=== PATIENT | female | born 1965 ===

== ENCOUNTER 2017-01-02 04:08 | Inpatient (IN) ==
--- NOTE | 2017-01-02 05:09 | Emergency Department Note ---
Arrival - Arrival Chief Complaint: Nausea/Vomiting/Diarrhea Stated Complaint: N/V ED Nursing Triage Note: Pt arrives via ems from [facility] for further eval of elevated ammonia and abnormal ct results. Pt was seen initially for nausea and vomiting and found to have abnormal results. PT at time of triage is noted to be jaundice. No complaints at this time. Denies any nausea. Mode of Arrival: Stretcher Time Seen by Provider: 01/02/17 04:44 - History of Present Illness HPI Narrative: This is a 51-year-old female of descent who presents from [facility] where she presented for generalized body aches and headache and was found to have a lipase of 134, amylase of 572, an INR of 1.4, total bilirubin of 24 who has a history of, asthma, pneumonia, cholecystectomy, type 2 diabetes and bipolar disorder. A CT scan of the abdomen and pelvis with intravenous contrast showed multiple tiny hypodensities throughout the liver which was thought to be either metastatic disease or fungal infection. The patient was transferred to [facility] for admission Date of Last Menstrual Period: pm Allergies/Adverse Reactions: Allergies Allergy/AdvReac Type Severity Reaction Status Date / Time No Known Allergies Allergy Verified 03/23/16 16:42 Home Medications: Home Medications Medication Instructions Recorded Confirmed Type No Known Home Medications [No 01/02/17 01/02/17 History Known Home Medications] Review of System - Review of System Constitutional: Absent: fever, night sweats Eyes: Absent: redness, vision change Head/Ears/Nose/Throat: Absent: epistaxis, nasal drainage Respiratory: Absent: respiratory distress, wheezing Cardiovascular: Absent: dyspnea on exertion, orthopnea Gastrointestinal: Absent: vomiting, diarrhea Genitourinary female: Absent: dysuria, urgency Musculoskeletal: Absent: arthralgia, joint swelling Skin: Absent: change in color, change in hair/nails Neurological: Absent: numbness, paresthesias Psychiatric: Absent: anxiety, depression Endocrine: Absent: heat intolerance, polydipsia, polyuria Hematological/Lymphatic: Absent: easy bruising, lymphadenopathy Allergic/Immunologic: Absent: urticaria Medical,Surgical,& Family Hx - Medical History Cardio: History of: Hypertension No history of: Cardiovascular Problems Psychological: History of: Bipolar Disorder, Psychiatric/Substance Abuse Tx HEENT: History of: Eye Problem Endocrine: History of: Diabetes Mellitus (IDDM) Respiratory: History of: Asthma, Bronchitis, Pneumonia Musculoskeletal: No history of: Amputation Hematology: History of: Anemia - Surgical History Cardiac Surgeries: Patient Denies: Cardiac Catheterization Thoracic Surgeries: Patient denies;: Organ Transplant Neurologic Surgeries: Patient denies: Neurologic Surgery HEENT Surgeries: Patient denies: Eye Surgery, Thyroid Surgery Abdominal Surgeries: Surgical HX of: Cholecystectomy, Colonoscopy Patient denies: Abdominal Surgery, Hernia Repair Reproductive Surgeries: Patient denies;: Genitourinary Surgery, Gynecologic Surgery - Family History Family History: Reports;: Family Diabetes, Family Hypertension, Family Psychiatric Problems - Social History Smoking Status: Current some day smoker Frequency of Alcohol Use: Frequently Type of Drug Use: None Exam Vital Signs: Vital Signs Temperature 99.4 F 01/02/17 04:08 Pulse Rate 76 01/02/17 04:08 Respiratory Rate 19 01/02/17 04:08 Blood Pressure 119/58 01/02/17 04:08 O2 Sat by Pulse Oximetry 97 01/02/17 04:08 - Head Head exam: Present: atraumatic, normocephalic - Eye Eye exam: Present: PERRL, EOMI, other (Sclera are icteric) - ENT ENT exam: Present: normal exam - Neck Neck exam: Present: normal inspection - Chest Chest inspection: Present: normal inspection - Respiratory Respiratory exam: Present: normal lung sounds bilaterally - Cardiovascular Cardiovascular exam: Present: regular rate - Abdominal Exam Abdominal exam: Present: soft, normal bowel sounds - Extremities Exam Extremities exam: Present: normal inspection, full ROM - Back Exam Back exam: Present: normal inspection, full ROM - Neurological Exam Neurological exam: Present: alert, oriented X3, CN II-XII intact - Psychiatric Psychiatric exam: Present: normal affect - Skin Skin exam: Present: other (Jaundiced)
[2017-01-02] MEDS ORDERED: ONDANSETRON 4 MG/2 ML VIAL IV PRN (05:37)
--- NOTE | 2017-01-02 05:50 | Hospitalist History & Physical ---
Assessment and Plan (1) Increase in transaminases Status: Acute Current Visit: Yes (2) Multiple hypodensities in liver Status: Acute Current Visit: Yes (3) Serum total bilirubin elevated Status: Acute Current Visit: Yes (4) Nausea Status: Acute Current Visit: Yes (5) History of alcoholism Status: Acute Assessment and plan: Our plan for this patient will be admission to our service. I want to repeat all labs drawn at [facility]. In addition I am going to have a direct bilirubin drawn. Will check tumor markers for the liver. Will consult GI for their evaluation. Going get a liver ultrasound. Patient may need a biopsy of 1 of these liver lesions. We need to obtain the final report for the CT scan. I currently only have a V rad report. Check hepatitis panel serologies. Going to give her some lactulose for increased ammonia. She does seem a little bit altered but not significantly. Current Visit: Yes History of Present Illness Chief complaint: Liver abnormalities History of present illness: Ms. Jhaveri is a 51 year old female with past medical history significant for alcoholism and anemia who was in her normal state of health until the past 3 days. Patient reports that she has had nausea during this time. She is on thrown up once. She she has not noticed any changes in her skin color. She denies any abdominal pain. She just says overall she is is not been feeling right. Patient reports that she has been feeling so poorly that she quit drinking about 1 week ago. She reports no symptoms of DTs. Based on her lab findings and CT scan I was consulted to admit her. Home Medications Medication Instructions Recorded Confirmed Type No Known Home Medications [No 01/02/17 01/02/17 History Known Home Medications] Allergies Allergy/AdvReac Type Severity Reaction Status Date / Time No Known Allergies Allergy Verified 03/23/16 16:42 Medical,Surgical,& Family Hx - Medical History Cardio: History of: Hypertension No history of: Cardiovascular Problems Psychological: History of: Bipolar Disorder, Psychiatric/Substance Abuse Tx HEENT: History of: Eye Problem Endocrine: History of: Diabetes Mellitus (IDDM) Respiratory: History of: Asthma, Bronchitis, Pneumonia Musculoskeletal: No history of: Amputation Hematology: History of: Anemia - Surgical History Cardiac Surgeries: Patient Denies: Cardiac Catheterization Thoracic Surgeries: Patient denies;: Organ Transplant Neurologic Surgeries: Patient denies: Neurologic Surgery HEENT Surgeries: Patient denies: Eye Surgery, Thyroid Surgery Abdominal Surgeries: Surgical HX of: Cholecystectomy, Colonoscopy Patient denies: Abdominal Surgery, Hernia Repair Reproductive Surgeries: Patient denies;: Genitourinary Surgery, Gynecologic Surgery - Family History Family History: Reports;: Family Diabetes, Family Hypertension, Family Psychiatric Problems - Social History Smoking Status: Current some day smoker Frequency of Alcohol Use: Frequently Type of Drug Use: None 12 point system: reviewed and no additional remarkable complaints except as stated Exam - Constitutional Vitals: Period Temp Pulse Resp BP Sys/Grajeda Pulse Ox Last 24 Hr 99.4 F-99.4 F 76-76 18-19 119-119/58-58 97 General appearance: over weight - Head Head exam: Present: normal inspection - Eye Eye exam: Present: EOMI, scleral icterus Pupils: Present: JORDAN - ENT ENT exam: Present: normal exam - Neck Neck exam: Present: normal inspection - Respiratory Respiratory exam: Present: clear to auscultation bilaterally - Cardiovascular Cardiovascular exam: Present: regular rate and rhythm - GI/Abdominal GI/Abdominal exam: Present: normal bowel sounds - Back Exam Back exam: Present: normal inspection - Neurological Exam Neurological exam: Present: alert - Psychiatric Psychiatric exam: Present: flat affect - Skin Skin exam: Present: other (Jaundice) Results - Labs Labs: Her labs from [facility] WBC 3.9 hemoglobin 11.4 hematocrit 34.2 platelets 109 BUN 13 sodium 139 potassium 3.1 bicarb 27 total protein 7.0 albumin 1.7 total bili 24.10 alk phos 193 SGOT 140 SGPT 51 glucose 111 calcium 8.0 chloride 105 creatinine 0.8 ammonia 54 INR 1.4 magnesium 2.[address] scan at [facility] that showed multiple tiny hypodensities throughout the liver this may represent metastatic disease or fungal infection clinical correlation is advised
[2017-01-02] MEDS ORDERED: LORazepam 2 MG/1 ML VIAL IV PRN (06:24)
[2017-01-02] MEDS: LACTULOSE 20 GM/30 ML UDCUP PO SCH ×4 (06:37→23:02)
[2017-01-02 07:27] LABS: Basophils % 0.7 % (0.0-0.8); Eosinophils # 0.1 10*3/uL (0.0-0.87); Eosinophils % 1.6 % (0.00-10.9); Hematocrit 31.7 VOL% (35.7-47.0); Hemoglobin 11.5 GM/DL (12.0-16.0); Immature Granulocytes % 0.7 %; Immature Granulocytes Absolute 0.03 #; Lymphocytes # 0.9 10*3/uL (1.4-4.0); Lymphocytes % 20.9 % (21.3-54.2); Mean Corpuscular HGB Conc 36.3 GM/DL (32-36); Mean Corpuscular Hemoglobin 37 PG (27-34); Mean Corpuscular Volume 101.3 FL (87-102); Mean Platelet Volume 9.9 FL (9.6-12.0); Monocytes # 0.8 10*3/uL (0.11-0.8); Monocytes % 17.6 % (1.7-12.7); Neutrophils # 2.6 10*3/uL (1.4-7.4); Neutrophils % 58.5 % (38.7-73.9); Platelet Count 96 T/CUMM (130-400); Red Blood Count 3.13 MC/CUMM (3.8-5.5); Red Cell Distribution Width 22.5 % (9.3-17.3); White Blood Count 4.5 T/CUMM (4-12)
[2017-01-02 07:41] LABS: INR 1.5; PT Patient Result 16.7 SECS
[2017-01-02 07:50] LABS: Band Neutrophils 2 % (0-10); Eosinophils 2 % (0-10); Giant Platelets Few; Hypochromasia 1+; Lymphocytes 14 % (20-55); Platelet Estimate Decreased; Segmented Neutrophils 65 % (50-85); Target Cells Few; Total Cells Counted 100
[2017-01-02 08:03] LABS: Albumin 1.6 G/DL (3.4-5.0); Calcium 7.9 MG/DL (8.5-10.1); Osmolality,Calculated 274.5 MOS/KG (273-304); Total Protein 6.3 G/DL (6.4-8.3)
[2017-01-02 08:10] LABS: Bilirubin,Total 21.6 MG/DL (0.2-1.0)
[2017-01-02 08:51] LABS: AFP Tumor 4.9 NG/ML (0-8)
[2017-01-02 08:55] LABS: Carcinoembryonic Antigen 2.2 NG/ML (0.0-5.0); Hepatitis A Ab IgM Quant 0.13 Index; Hepatitis A Ab IgM Result Negative (Negative); Hepatitis B Core IgM Quant < 0.05 Index; Hepatitis B Core IgM Result Negative (Negative); Hepatitis B Surface Ag Quant 0.44 Index; Hepatitis B Surface Ag Result Negative (Negative); Hepatitis C Virus Ab Quant 0.71 Index; Hepatitis C Virus Ab Result Negative (Negative)
[2017-01-02] MEDS: FOLIC ACID 1 MG TABLET PO SCH (09:11)
[2017-01-02] MEDS: PANTOPRAZOLE 40 MG TABLET PO SCH (09:11)
[2017-01-02] MEDS: MULTIVITAMIN (CENTRUM) TABLET PO SCH (09:11)
[2017-01-02] MEDS: THIAMINE 100 MG TABLET PO SCH (09:11)
--- NOTE | 2017-01-02 15:45 | Hospitalist Progress Note ---
Hospitalist: Subjective Interval history: Patient states that her n/v has resolved. She was given lactulose and she states that she had some diarrhea. Her abdominal pain has resolved as well. She admits to drinking beers up to 18 a day. She states that for two weeks, she drank almost 24 cans of beer a day for 2 weeks. Her last beer was 1.5 weeks ago. She states that she has never had any withdrawals from ETOH cessation. She states that she wants to eat. Exam - Constitutional Vitals: Period Temp Pulse Resp BP Sys/Grajeda Pulse Ox Last 24 Hr 98 F-99.4 F 69-94 16-19 110-126/54-62 90-97 General appearance: no acute distress, over weight - Head Head exam: Present: normal inspection - Eye Eye exam: Present: EOMI, scleral icterus Pupils: Present: OJRDAN - Respiratory Respiratory exam: Present: clear to auscultation bilaterally. Absent: rales, rhonchi, wheezes - Cardiovascular Cardiovascular exam: Present: regular rate and rhythm. Absent: diastolic murmur , systolic murmur - GI/Abdominal GI/Abdominal exam: Present: normal bowel sounds, soft. Absent: distended, tenderness - Extremities Exam Extremities exam: Absent: edema (no asterixis) - Neurological Exam Neurological exam: Present: alert, oriented X3 - Psychiatric Psychiatric exam: Present: normal affect, normal mood - Skin Skin exam: Present: other (jaundiced) Results - Labs CBC & BMP: 01/02/17 07:05 01/02/17 07:05 - Impressions 1. Obstructive Jaundice 2. Liver masses, on outside CT; RUQUS pending 3. Elevated direct and total bilirubin 4. Obstructive LFT pattern 5. h/o ETOH use 6. hyperammonemia, mental status seems to be normal; she received lactulose today 7. thrombocytopenia, likely 2nd to ETOHic liver disease 8. hypoK: likely 2nd to n/v; replete and monitor Plan: continue current therapy; await recommendations from GI; will need biopsy of liver mass by IR; f/u LFTs; replete K; obtain mg level; start clears; continue thiamine/folate; monitor and treat for ETOH withdrawals; on PPI; DVT prophalaxis with SCDs.
[2017-01-02] MEDS ORDERED: POTASSIUM CHLORIDE 20 MEQ TABLET PO ONE (15:52)
[2017-01-02 16:44] LABS: Albumin 1.4 G/DL (3.4-5.0); Calcium 7.6 MG/DL (8.5-10.1); Osmolality,Calculated 276.4 MOS/KG (273-304)
[2017-01-02 16:46] LABS: Bilirubin,Total 20.1 MG/DL (0.2-1.0)
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
[2017-01-02 16:48] LABS: % Iron Saturation 92.3 % (18-50)
[2017-01-02 17:57] LABS: Cancer Antigen 19-9 6.1 U/ML (0-37)
[2017-01-02] MEDS: PHYTONADIONE 5 MG TABLET PO SCH (18:46)
[2017-01-02] MEDS: RIFAXIMIN 550 MG TABLET PO SCH (20:50)
[2017-01-02] MEDS: hydrOXYzine HCL 25 MG TABLET PO PRN (20:50)
[2017-01-03] MEDS: LACTULOSE 20 GM/30 ML UDCUP PO SCH ×3 (05:05→17:16)
[2017-01-03 06:33] LABS: Basophils % 0.9 % (0.0-0.8); Eosinophils # 0.1 10*3/uL (0.0-0.87); Eosinophils % 1.6 % (0.00-10.9); Immature Granulocytes % 0.7 %; Immature Granulocytes Absolute 0.03 #; Lymphocytes % 21.9 % (21.3-54.2); Mean Corpuscular HGB Conc 35.5 GM/DL (32-36); Mean Corpuscular Hemoglobin 36 PG (27-34); Mean Corpuscular Volume 102.6 FL (87-102); Mean Platelet Volume 10.5 FL (9.6-12.0); Monocytes # 0.8 10*3/uL (0.11-0.8); Monocytes % 17.8 % (1.7-12.7); Neutrophils # 2.5 10*3/uL (1.4-7.4); Neutrophils % 57.1 % (38.7-73.9); Platelet Count 104 T/CUMM (130-400); Red Blood Count 3.02 MC/CUMM (3.8-5.5); Red Cell Distribution Width 22.5 % (9.3-17.3); White Blood Count 4.4 T/CUMM (4-12)
[2017-01-03 06:44] LABS: INR 1.4; PT Patient Result 15.1 SECS
[2017-01-03 07:00] LABS: Band Neutrophils 1 % (0-10); Eosinophils 2 % (0-10); Lymphocytes 13 % (20-55); Segmented Neutrophils 70 % (50-85); Total Cells Counted 100
[2017-01-03 07:01] LABS: Giant Platelets Few; Hypochromasia 1+; Platelet Estimate Decreased
[2017-01-03 07:02] LABS: Magnesium 2.4 MG/DL (1.8-2.4)
[2017-01-03] MEDS ORDERED: SODIUM CHLORIDE 0.9% 250 ML IV PRN (08:24)
[2017-01-03] MEDS: FOLIC ACID 1 MG TABLET PO SCH (08:29)
[2017-01-03] MEDS: PANTOPRAZOLE 40 MG TABLET PO SCH (08:29)
[2017-01-03] MEDS: MULTIVITAMIN (CENTRUM) TABLET PO SCH (08:29)
[2017-01-03] MEDS: PHYTONADIONE 5 MG TABLET PO SCH (08:29)
[2017-01-03] MEDS: RIFAXIMIN 550 MG TABLET PO SCH ×2 (08:29→20:45)
[2017-01-03] MEDS: THIAMINE 100 MG TABLET PO SCH (08:29)
--- NOTE | 2017-01-03 08:34 | Gastrointestinal Progress Note ---
Assessment and Plan (1) Jaundice, hepatocellular Status: Acute Assessment and plan: The patient has a bilirubin of 20-21 at this time with no gross evidence of ductal dilatation on CT scan done at the [facility]. Multiple hypodensities are seen within the liver which may represent regenerative nodules versus metastatic disease from a cancer. CA 19-9 is been ordered by myself but the other CEA level and AFP are negative looking for colon cancer and hepatocellular carcinoma respectively. She is not really having fevers or chills and does not have an elevated white blood cell count and I am not overly concerned about fungal infections or disseminated systemic illness. Again I suspect that this patient likely has acute alcoholic hepatitis superimposed on alcoholic cirrhosis as the cause for this underlying jaundice. I have ordered additional tests looking for autoimmune hepatitis, alpha-1 antitrypsin deficiency, and hemochromatosis since the viral hepatitis panel is negative. I think a liver biopsy would be helpful to rule out the metastatic disease. Right now her INR is 1.5 and we may be able to get this down with vitamin K but I suspect she may end up needing a couple of units of fresh frozen plasma prior to the transthoracic biopsy. I will be following the INR to see if this comes down significantly with supplementation. Currently the patient's Maddrey's discriminant function score = 43, with any value greater than 32 indicating that the patient might improve from their alcoholic hepatitis with use of steroids typically prednisolone 40 mg per day for a period of 28 days. On the off chance that this is an infectious process I am not starting this yet. Calculating the patient's MELD score this equals 23 which is referable to a transplant center. She certainly would not be a candidate for transplant until she had been alcohol free for 6 months. 01/03/17--the patient's INR came down to 1.4 today. I suspect interventional radiology would likely do the liver biopsy at this level however, I personally would like to give her 2 units of fresh frozen plasma prior to getting the liver biopsy. As it turns out she needs to be n.p.o. and was eating her sausage and eggs this morning and so have made her n.p.o. prior to getting this procedure after getting the 2 units of fresh frozen plasma today--> interventional radiology can do her procedure likely towards the end of the day- -this will actually give her an opportunity to get her fresh frozen plasma as well. I have removed the patient's tray from her room, she was about half finished. Liver function tests are not back yet from today but the ammonia levels improved down to 51. I would certainly like to know whether this patient has metastatic or infectious process prior to putting them on prednisolone for presumed alcoholic cirrhosis. Current Visit: Yes (2) Acute hepatic encephalopathy Status: Acute Assessment and plan: Patient's ammonia level was elevated to 67 and she gives a history of being confused lately, she is certainly mildly confused in my discussions with her about her history vacillating in alcohol intake amounts between 6 beers a day and 3 cases of beer per day. I suspect the truth is somewhere in the middle. I am going to add some Xifaxan just because I believe that is going to dislike the lactulose intensely and she is already baulking at the flavor. We will watch and see how well ammonia levels improve over the next several days. She is also asking if she will be able to leave the hospital soon. 01/03/17--no gross evidence of hepatic encephalopathy in talking with this patient, she is a perfect historian is completely oriented with her ammonia level 51. Cephalexin continues as does lactulose. Current Visit: Yes (3) History of alcoholism Status: Acute Assessment and plan: I have emphasized that the patient that she likely has cirrhosis and hopefully we can bring her back from this episode. She absolutely needs to discontinue drinking entirely at this point needs to limit the amount of Tylenol that she takes in from here on. I suspect she has underlying cirrhosis we should be able to confirm this with a liver biopsy after we order this perhaps in the next 2 days. She would benefit from better insight as to her underlying problem /addiction. I am not sure what resources the patient can tap into over [facility] but I suspect they have an addictions/alcohol hearing specialist. 01/03/17--Watch for onset of delirium tremens likely tomorrow or the next day, await liver biopsy today. Current Visit: Yes (4) Multiple hypodensities in liver Status: Acute Assessment and plan: Again, I suspect this may be regenerative nodules interpreted by the radiologist as being metastatic disease however granulomas can appear this way as can true metastatic disease and we will certainly obtain a liver biopsy to look and see if cancer is present. We are waiting to see what the patient's INR will do with vitamin K supplementation. Her liver function tests are certainly radically different from March 2016 when they were last checked here at Hospital. Low platelet count the patient is experiencing is indicative to me of an underlying cirrhosis, along with her current coagulopathy. We will continue to watch these parameters as well. If the pathology from the liver demonstrates simple cirrhosis with alcoholic changes at that point we can certainly start the patient on prednisolone as mentioned previously. 01/03/17--These lesions were so diffuse on CT scan 2 days ago, I am fairly positive we should be able to hit 1 with a liver biopsy done routinely. CT scan will be done prior to the placement of the needle if a dominant lesion is seen interventional radiology can try and target this. My suspicion is these are regenerative nodules in association with alcoholic hepatitis/cirrhosis. Unfortunately as mentioned above the patient will need to be made n.p.o. and will benefit from getting fresh frozen plasma prior to being done 6-8 hours later today. She completed about half of her tray at 8:30 AM before she was discontinued. The liver biopsy is likely the last thing that she will need prior to be discharged to home again. The jaundice is going to take weeks to resolve, even with prednisolone. Current Visit: Yes Gastroenterology - PN: Subj Interval history: Patient is doing well and is eating breakfast this morning. She has a good appetite. Her ammonia level is down to 51, she will need to get her liver biopsy today if possible. She has no other complaints. The ultrasound results are still pending, for some reason. Exam (Progress Note) - Constitutional Vitals: Period Temp Pulse Resp BP Sys/Grajeda Pulse Ox Last 24 Hr 98.3 F-98.7 F 79-94 18-20 100-119/53-64 94-96 General appearance: no acute distress, other (Extremely jaundiced) - Head Head exam: Present: normal inspection - Eye Eye exam: Present: EOMI, scleral icterus - Respiratory Respiratory exam: Present: clear to auscultation bilaterally. Absent: rhonchi, wheezes - Cardiovascular Cardiovascular exam: Present: regular rate and rhythm - GI/Abdominal GI/Abdominal exam: Present: normal bowel sounds, distended, soft. Absent: tenderness, rebound - Extremities Exam Extremities exam: Present: normal inspection - Neurological Exam Neurological exam: Present: alert, oriented X3, altered. Absent: motor sensory deficit - Psychiatric Psychiatric exam: Present: normal affect, normal mood - Skin Skin exam: Present: warm Results - Labs CBC & BMP: 01/03/17 05:39 01/02/17 16:07
[2017-01-03] MEDS: prednisoLONE 5 MG TABLET PO SCH (09:18)
--- NOTE | 2017-01-03 09:23 | Hospitalist Progress Note ---
Assessment and Plan (1) Alcoholic cirrhosis Status: Acute Current Visit: Yes (2) Multiple hypodensities in liver Status: Acute Current Visit: Yes (3) Acute hepatic encephalopathy Status: Acute Current Visit: Yes (4) Alcoholic hepatitis Status: Acute Current Visit: Yes (5) Anemia Status: Acute Assessment and plan: Her CBC is stable today. Her hematocrit is 30.0 and hemoglobin 11.0. Current Visit: Yes Qualifiers: Anemia type: other cause Other causes of anemia: chronic disease, other Qualified Code(s): D63.8 - Anemia in other chronic diseases classified elsewhere Hospitalist: Subjective Interval history: She is being followed by gastroenterology. It is their opinion that she has alcoholic hepatitis superimposed on alcoholic cirrhosis. CT scan of the abdomen demonstrated multiple hypodensities of the liver for which gastroenterology plans to perform a CT-guided liver biopsy. At the recommendation she has been begun on prednisolone 40 mg p.o. daily. Patient has no specific complaints today. She is not experiencing abdominal pain, nausea, or vomiting. Exam - Constitutional Vitals: Period Temp Pulse Resp BP Sys/Grajeda Pulse Ox Last 24 Hr 98.3 F-98.7 F 79-94 18-20 100-124/53-64 91-96 General appearance: no acute distress - Head Head exam: Present: normal inspection - Neck Neck exam: Present: normal inspection - Respiratory Respiratory exam: Present: clear to auscultation bilaterally - Cardiovascular Cardiovascular exam: Present: regular rate and rhythm - GI/Abdominal GI/Abdominal exam: Present: normal bowel sounds, soft, other (Nontender with no palpable masses or hepatosplenomegaly.) - Extremities Exam Extremities exam: Present: normal inspection - Neurological Exam Neurological exam: Present: alert, oriented X3 - Psychiatric Psychiatric exam: Present: normal affect, normal mood - Skin Skin exam: Present: warm, intact, other (Jaundice) Results - Labs CBC & BMP: 01/03/17 05:39 01/02/17 16:07
--- NOTE | 2017-01-03 09:24 | Ultrasound Report ---
Liver ultrasound. Indication: Hepatic lesions seen on outside CT. The liver measures normal in size with a length of 15.2 cm. The parenchyma of the liver is diffusely heterogeneous with a nodular configuration and no dominant measurable mass. There is no intrahepatic biliary ductal dilatation. There appears to be complete occlusion of the portal vein, with no flow seen within it on ultrasound. The hepatic veins and IVC are patent. The common duct measures 8 mm. No ascites is seen. The gallbladder has been removed. The right kidney presents a normal appearance. The pancreas is obscured by bowel gas. Impression: Diffusely heterogeneous, abnormal appearance to the liver. Infiltrating processes should be considered. No flow can be seen within the portal vein. Portal vein occlusion is suspected. The Ultrasound images were captured and stored. PROCEDURE INTERPRETED AT [facility] DEPARTMENT OF RADIOLOGY Final Report Signed by: Dr. Maria Victoria Lloyd
--- NOTE | 2017-01-03 11:29 | Inventional Radiology Consult ---
Assessment and Plan - Time spent with patient Time spent with patient: Less than 30 minutes IR Consult - Data of Consult Patient: new to practice Consult date: 01/03/17 Requesting Physician: Clement Jackson - Consult Narrative Reason for consult: alcoholic cirrhosis History of present illness: Emilio is a 51 year old F Admitted with jaundice abdominal pain and found to have markedly abnormal liver function studies which are significantly increased from April 05 lab values. Imaging demonstrates multiple hypodense nodules throughout the liver which may represent an infectious process or regenerative nodules versus metastatic disease. Biopsy is requested for definitive evaluation. Patient is chopped on does not the significant angulation but does understand the biopsy. She also had her family (ex-) on the phone who assisted with translation. No nausea vomiting today. Mildly tender in the right upper quadrant but no other significant complaints. Patient is getting fresh frozen plasma now. ASA III - Home Medications and Allergies Home Medications: Home Medications Medication Instructions Recorded Confirmed Type No Known Home Medications [No 01/02/17 01/02/17 History Known Home Medications] Allergies/Adverse Reactions: Allergies Allergy/AdvReac Type Severity Reaction Status Date / Time No Known Allergies Allergy Verified 03/23/16 16:42 12 point system: reviewed and no additional remarkable complaints except as stated Medical,Surgical,& Family Hx - Medical History Cardio: History of: Hypertension No history of: Cardiovascular Problems Psychological: History of: Psychiatric/Substance Abuse Tx No history of: Bipolar Disorder HEENT: History of: Eye Problem Endocrine: No history of: Diabetes Mellitus (IDDM) Respiratory: History of: Asthma, Bronchitis, Pneumonia Musculoskeletal: No history of: Amputation Hematology: History of: Anemia - Surgical History Cardiac Surgeries: Patient Denies: Cardiac Catheterization Thoracic Surgeries: Patient denies;: Organ Transplant Neurologic Surgeries: Patient denies: Neurologic Surgery HEENT Surgeries: Patient denies: Eye Surgery, Thyroid Surgery Abdominal Surgeries: Surgical HX of: Cholecystectomy, Colonoscopy Patient denies: Abdominal Surgery, Hernia Repair Reproductive Surgeries: Patient denies;: Genitourinary Surgery, Gynecologic Surgery - Family History Family History: Reports;: Family Cancer (mom, dad), Family Diabetes (SISTER), Family Hypertension (mom, dad) Denies;: Family Psychiatric Problems - Social History Smoking Status: Current some day smoker Frequency of Alcohol Use: Frequently Type of Drug Use: None Exam - Labs CBC & BMP: 01/03/17 05:39 08/15/17 16:07 Lab Results: I have reviewed the past 24 hour labs Labs: INR 1.4 01/03/17 05:39 Image Studies: CT and u/s reviewed - Constitutional Vitals: Period Temp Pulse Resp BP Sys/Grajeda Pulse Ox Last 24 Hr 98.2 F-98.7 F 79-94 17-20 100-124/42-64 91-96 General appearance: over weight - Eye Eye exam: Present: scleral icterus - Respiratory Respiratory exam: Present: clear to auscultation bilaterally - Cardiovascular Cardiovascular exam: Present: regular rate and rhythm - GI/Abdominal GI/Abdominal exam: Present: normal bowel sounds, ascites, distended. Absent: guarding - Neurological Exam Neurological exam: Present: alert, oriented X3 - Psychiatric Psychiatric exam: Present: normal affect, normal mood - Skin Skin exam: Present: normal color, dry
[2017-01-03] MEDS ORDERED: DIAZEPAM 5 MG TABLET PO ONE (11:30)
[2017-01-03] MEDS ORDERED: ACETAMINOPHEN 325 MG TABLET PO PRN (15:19)
--- NOTE | 2017-01-03 17:14 | Post Interventional Procedure ---
Pre-op diagnosis: alcoholic cirrhosis Post-op diagnosis: same Procedure: u/s guided liver biopsy Contrast: none Flouroscopy: none Radiologist: Deepak Medley Anesthesia: local Specimens: other (three 20 ga core samples sent for path) Estimated blood loss: none Complications: none Condition: stable Description/Findings: right lobe biopsy done without issue patient tolerated well Assessment and Plan - Time spent with patient Time spent with patient: Less than 30 minutes
--- NOTE | 2017-01-03 17:17 | Ultrasound Report ---
Ultrasound-guided liver biopsy Clinical history: History of alcoholic liver disease, needs staging. Physician: Dr. Medley. Procedure: Informed consent was obtained prior to the procedure. A formal timeout was performed. Maximum sterile barrier technique was used. The right lobe of the liver was examined with ultrasound and no focal hepatic lesions are identified. Therefore, a random biopsy was performed. The right upper quadrant laterally was prepped and draped in a sterile fashion. Under sonographic guidance, a coaxial guide needle was advanced into the right lobe of the liver. A captured sonographic image documents the needle position within the liver. Multiple 20-gauge core biopsies were then obtained. The needle was removed and final ultrasound images showed no significant hematoma. Scant hemorrhage is noted along the biopsy tract within the liver parenchyma, as expected. The patient tolerated the procedure well and left the procedure area in stable condition. Complications: None. Estimated blood loss: Less than 5 mL. Impression: Technically successful ultrasound guided random liver biopsy. PROCEDURE INTERPRETED AT [facility] DEPARTMENT OF RADIOLOGY Final Report Signed by: Deepak Medley
[2017-01-03] MEDS: hydrOXYzine HCL 25 MG TABLET PO PRN (19:14)
[2017-01-04] MEDS: LACTULOSE 20 GM/30 ML UDCUP PO SCH ×5 (01:15→20:54)
--- NOTE | 2017-01-04 06:55 | Gastrointestinal Progress Note ---
Assessment and Plan (1) Jaundice, hepatocellular Status: Acute Assessment and plan: The patient has a bilirubin of 20-21 at this time with no gross evidence of ductal dilatation on CT scan done at the [facility]. Multiple hypodensities are seen within the liver which may represent regenerative nodules versus metastatic disease from a cancer. CA 19-9 is been ordered by myself but the other CEA level and AFP are negative looking for colon cancer and hepatocellular carcinoma respectively. She is not really having fevers or chills and does not have an elevated white blood cell count and I am not overly concerned about fungal infections or disseminated systemic illness. Again I suspect that this patient likely has acute alcoholic hepatitis superimposed on alcoholic cirrhosis as the cause for this underlying jaundice. I have ordered additional tests looking for autoimmune hepatitis, alpha-1 antitrypsin deficiency, and hemochromatosis since the viral hepatitis panel is negative. I think a liver biopsy would be helpful to rule out the metastatic disease. Right now her INR is 1.5 and we may be able to get this down with vitamin K but I suspect she may end up needing a couple of units of fresh frozen plasma prior to the transthoracic biopsy. I will be following the INR to see if this comes down significantly with supplementation. Currently the patient's Maddrey's discriminant function score = 43, with any value greater than 32 indicating that the patient might improve from their alcoholic hepatitis with use of steroids typically prednisolone 40 mg per day for a period of 28 days. On the off chance that this is an infectious process I am not starting this yet. Calculating the patient's MELD score this equals 23 which is referable to a transplant center. She certainly would not be a candidate for transplant until she had been alcohol free for 6 months. 01/03/17--the patient's INR came down to 1.4 today. I suspect interventional radiology would likely do the liver biopsy at this level however, I personally would like to give her 2 units of fresh frozen plasma prior to getting the liver biopsy. As it turns out she needs to be n.p.o. and was eating her sausage and eggs this morning and so have made her n.p.o. prior to getting this procedure after getting the 2 units of fresh frozen plasma today--> interventional radiology can do her procedure likely towards the end of the day- -this will actually give her an opportunity to get her fresh frozen plasma as well. I have removed the patient's tray from her room, she was about half finished. Liver function tests are not back yet from today but the ammonia levels improved down to 51. I would certainly like to know whether this patient has metastatic or infectious process prior to putting them on prednisolone for presumed alcoholic cirrhosis. 01/04/17--Biopsy completed, patient does not need to stay in the hospital to await these results. She can follow-up in my office in 1-2 weeks for biopsy results and to follow-up. When I get these biopsy results we will initiate treatment with prednisolone or not based on findings. If metastatic disease is discovered will likely have to do a metastatic workup. She has the option of staying if she would like pending on how the hospitalist feels but she is certainly well enough from my standpoint to be discharged. She will need a prescription for lactulose and Xifaxan if she is discharged today. Current Visit: Yes (2) Acute hepatic encephalopathy Status: Acute Assessment and plan: Patient's ammonia level was elevated to 67 and she gives a history of being confused lately, she is certainly mildly confused in my discussions with her about her history vacillating in alcohol intake amounts between 6 beers a day and 3 cases of beer per day. I suspect the truth is somewhere in the middle. I am going to add some Xifaxan just because I believe that is going to dislike the lactulose intensely and she is already baulking at the flavor. We will watch and see how well ammonia levels improve over the next several days. She is also asking if she will be able to leave the hospital soon. 01/03/17--no gross evidence of hepatic encephalopathy in talking with this patient, she is a perfect historian is completely oriented with her ammonia level 51. Cephalexin continues as does lactulose. 01/04/17--the patient had 6 bowel movements in the last 2 shifts I will cut back her lactulose dosing 1 per day i.e. to 30 mL 3 times daily. Labs not returned from today but she seems extremely lucid. Current Visit: Yes (3) History of alcoholism Status: Acute Assessment and plan: I have emphasized that the patient that she likely has cirrhosis and hopefully we can bring her back from this episode. She absolutely needs to discontinue drinking entirely at this point needs to limit the amount of Tylenol that she takes in from here on. I suspect she has underlying cirrhosis we should be able to confirm this with a liver biopsy after we order this perhaps in the next 2 days. She would benefit from better insight as to her underlying problem /addiction. I am not sure what resources the patient can tap into over [facility] but I suspect they have an addictions/alcohol life insurance specialist. 01/03/17--Watch for onset of delirium tremens likely tomorrow or the next day, await liver biopsy today. 01/04/17--No evidence of delirium tremens yet. Await liver biopsy results. Current Visit: Yes (4) Multiple hypodensities in liver Status: Acute Assessment and plan: Again, I suspect this may be regenerative nodules interpreted by the radiologist as being metastatic disease however granulomas can appear this way as can true metastatic disease and we will certainly obtain a liver biopsy to look and see if cancer is present. We are waiting to see what the patient's INR will do with vitamin K supplementation. Her liver function tests are certainly radically different from March 2016 when they were last checked here at Hospital. Low platelet count the patient is experiencing is indicative to me of an underlying cirrhosis, along with her current coagulopathy. We will continue to watch these parameters as well. If the pathology from the liver demonstrates simple cirrhosis with alcoholic changes at that point we can certainly start the patient on prednisolone as mentioned previously. 01/03/17--These lesions were so diffuse on CT scan 2 days ago, I am fairly positive we should be able to hit 1 with a liver biopsy done routinely. CT scan will be done prior to the placement of the needle if a dominant lesion is seen interventional radiology can try and target this. My suspicion is these are regenerative nodules in association with alcoholic hepatitis/cirrhosis. Unfortunately as mentioned above the patient will need to be made n.p.o. and will benefit from getting fresh frozen plasma prior to being done 6-8 hours later today. She completed about half of her tray at 8:30 AM before she was discontinued. The liver biopsy is likely the last thing that she will need prior to be discharged to home again. The jaundice is going to take weeks to resolve, even with prednisolone. 01/04/17--As noted above. Current Visit: Yes Gastroenterology - PN: Subj Interval history: Patient seems completely awake. She has had at least 6 bowel movements in the last 2 shifts. She seems lukewarm about leaving the hospital today although she did have some pain from her biopsy site this is feeling better this morning. Laboratories from today are pending at this time. She is eating her food well. Exam (Progress Note) - Constitutional Vitals: Period Temp Pulse Resp BP Sys/Grajeda Pulse Ox Last 24 Hr 97.9 F-98.7 F 74-91 16-20 101-136/42-74 91-98 General appearance: no acute distress - Eye Eye exam: Present: EOMI, scleral icterus Pupils: Present: JORDAN - Respiratory Respiratory exam: Present: clear to auscultation bilaterally. Absent: rhonchi, stridor, wheezes - Cardiovascular Cardiovascular exam: Present: regular rate and rhythm - GI/Abdominal GI/Abdominal exam: Present: normal bowel sounds, soft, other (Skin grafts noted again). Absent: distended, tenderness, rebound - Extremities Exam Extremities exam: Present: normal inspection - Neurological Exam Neurological exam: Present: alert, oriented X3, CN II-XII intact - Psychiatric Psychiatric exam: Present: normal affect, normal mood - Skin Skin exam: Present: warm Results - Labs CBC & BMP: 01/03/17 05:39 01/02/17 16:07
[2017-01-04 07:05] LABS: Basophils % 0.6 % (0.0-0.8); Eosinophils # 0.1 10*3/uL (0.0-0.87); Eosinophils % 2.1 % (0.00-10.9); Hematocrit 27.6 VOL% (35.7-47.0); Hemoglobin 9.8 GM/DL (12.0-16.0); Immature Granulocytes % 0.3 %; Immature Granulocytes Absolute 0.01 #; Lymphocytes # 0.8 10*3/uL (1.4-4.0); Lymphocytes % 23.6 % (21.3-54.2); Mean Corpuscular HGB Conc 35.5 GM/DL (32-36); Mean Corpuscular Hemoglobin 37 PG (27-34); Mean Corpuscular Volume 103.4 FL (87-102); Mean Platelet Volume 10.5 FL (9.6-12.0); Monocytes # 0.6 10*3/uL (0.11-0.8); Monocytes % 16.4 % (1.7-12.7); Neutrophils # 1.9 10*3/uL (1.4-7.4); Platelet Count 97 T/CUMM (130-400); Red Blood Count 2.67 MC/CUMM (3.8-5.5); Red Cell Distribution Width 21.7 % (9.3-17.3); White Blood Count 3.4 T/CUMM (4-12)
[2017-01-04 07:08] LABS: INR 1.4; PT Patient Result 15.3 SECS
[2017-01-04 07:23] LABS: Platelet Estimate Decreased
[2017-01-04 07:33] LABS: Albumin 1.5 G/DL (3.4-5.0); Calcium 7.2 MG/DL (8.5-10.1); Osmolality,Calculated 275.5 MOS/KG (273-304); Potassium 3.1 MMOL/L (3.5-5.1); Total Protein 5.6 G/DL (6.4-8.3)
[2017-01-04 07:34] LABS: Hypochromasia 1+
[2017-01-04 07:39] LABS: Bilirubin,Total 18.4 MG/DL (0.2-1.0)
[2017-01-04] MEDS: prednisoLONE 5 MG TABLET PO SCH (09:02)
[2017-01-04] MEDS: MULTIVITAMIN (CENTRUM) TABLET PO SCH (09:03)
[2017-01-04] MEDS: RIFAXIMIN 550 MG TABLET PO SCH ×2 (09:03→20:54)
[2017-01-04] MEDS: PANTOPRAZOLE 40 MG TABLET PO SCH (09:03)
[2017-01-04] MEDS: FOLIC ACID 1 MG TABLET PO SCH (09:03)
[2017-01-04] MEDS: THIAMINE 100 MG TABLET PO SCH (09:03)
[2017-01-04] MEDS: PHYTONADIONE 5 MG TABLET PO SCH (09:04)
[2017-01-04] MEDS ORDERED: POTASSIUM CHLORIDE 20 MEQ TABLET PO ONE (10:22)
--- NOTE | 2017-01-04 15:03 | Hospitalist Progress Note ---
Assessment and Plan (1) Jaundice, hepatocellular Status: Acute Assessment and plan: GI is following.Liver biopsy completed,patient to follow results in GI clinic. May dc in am Current Visit: Yes (2) Multiple hypodensities in liver Status: Acute Assessment and plan: Follow up biopsy report in clinic Current Visit: Yes (3) Acute hepatic encephalopathy Status: Acute Assessment and plan: Improved with lactulose Current Visit: Yes (4) Anemia Status: Acute Assessment and plan: stable Current Visit: Yes Qualifiers: Anemia type: other cause Other causes of anemia: chronic disease, other Qualified Code(s): D63.8 - Anemia in other chronic diseases classified elsewhere (5) Hypokalemia Status: Acute Assessment and plan: replete and recheck labs in am Current Visit: Yes Hospitalist: Subjective Interval history: Patient seen, she was awake, she is still having diarrhoea most likely due to her lactulose. Nausea and vomiting have subsided.She is still deeply jaundiced. Exam - Constitutional Vitals: Period Temp Pulse Resp BP Sys/Grajeda Pulse Ox Last 24 Hr 97.9 F-98.3 F 80-85 17-20 106-139/54-64 92-96 General appearance: no acute distress, other (deeply jaundiced) - Head Head exam: Present: normal inspection - Eye Eye exam: Present: EOMI - Respiratory Respiratory exam: Present: clear to auscultation bilaterally - Cardiovascular Cardiovascular exam: Present: regular rate and rhythm - GI/Abdominal GI/Abdominal exam: Present: normal bowel sounds - Extremities Exam Extremities exam: Present: normal inspection - Neurological Exam Neurological exam: Present: alert, oriented X3 Results - Labs CBC & BMP: 01/04/17 05:35 01/04/17 05:35 Lab Results: I have reviewed the past 24 hour labs
[2017-01-04] MEDS: hydrOXYzine HCL 25 MG TABLET PO PRN (23:46)
[2017-01-05 06:24] LABS: Basophils % 0.2 % (0.0-0.8); Eosinophils % 0.2 % (0.00-10.9); Hematocrit 28.7 VOL% (35.7-47.0); Hemoglobin 10.2 GM/DL (12.0-16.0); Immature Granulocytes % 0.8 %; Immature Granulocytes Absolute 0.04 #; Lymphocytes # 0.8 10*3/uL (1.4-4.0); Lymphocytes % 17.5 % (21.3-54.2); Mean Corpuscular HGB Conc 35.5 GM/DL (32-36); Mean Corpuscular Hemoglobin 37 PG (27-34); Mean Corpuscular Volume 103.2 FL (87-102); Monocytes # 0.5 10*3/uL (0.11-0.8); Monocytes % 9.5 % (1.7-12.7); Neutrophils # 3.4 10*3/uL (1.4-7.4); Neutrophils % 71.8 % (38.7-73.9); Platelet Count 103 T/CUMM (130-400); Red Blood Count 2.78 MC/CUMM (3.8-5.5); Red Cell Distribution Width 20.4 % (9.3-17.3); White Blood Count 4.8 T/CUMM (4-12)
[2017-01-05 06:54] LABS: Albumin 1.5 G/DL (3.4-5.0); Calcium 7.8 MG/DL (8.5-10.1); Osmolality,Calculated 276.5 MOS/KG (273-304); Potassium 3.7 MMOL/L (3.5-5.1)
[2017-01-05 07:04] LABS: Bilirubin,Total 16.8 MG/DL (0.2-1.0)
[2017-01-05 07:27] LABS: Hypochromasia 1+; Ovalocytes Slight
[2017-01-05 07:28] LABS: Platelet Estimate Decreased
--- NOTE | 2017-01-05 08:24 | Gastrointestinal Progress Note ---
Assessment and Plan (1) Jaundice, hepatocellular Status: Acute Assessment and plan: The patient has a bilirubin of 20-21 at this time with no gross evidence of ductal dilatation on CT scan done at the [facility]. Multiple hypodensities are seen within the liver which may represent regenerative nodules versus metastatic disease from a cancer. CA 19-9 is been ordered by myself but the other CEA level and AFP are negative looking for colon cancer and hepatocellular carcinoma respectively. She is not really having fevers or chills and does not have an elevated white blood cell count and I am not overly concerned about fungal infections or disseminated systemic illness. Again I suspect that this patient likely has acute alcoholic hepatitis superimposed on alcoholic cirrhosis as the cause for this underlying jaundice. I have ordered additional tests looking for autoimmune hepatitis, alpha-1 antitrypsin deficiency, and hemochromatosis since the viral hepatitis panel is negative. I think a liver biopsy would be helpful to rule out the metastatic disease. Right now her INR is 1.5 and we may be able to get this down with vitamin K but I suspect she may end up needing a couple of units of fresh frozen plasma prior to the transthoracic biopsy. I will be following the INR to see if this comes down significantly with supplementation. Currently the patient's Maddrey's discriminant function score = 43, with any value greater than 32 indicating that the patient might improve from their alcoholic hepatitis with use of steroids typically prednisolone 40 mg per day for a period of 28 days. On the off chance that this is an infectious process I am not starting this yet. Calculating the patient's MELD score this equals 23 which is referable to a transplant center. She certainly would not be a candidate for transplant until she had been alcohol free for 6 months. 01/03/17--the patient's INR came down to 1.4 today. I suspect interventional radiology would likely do the liver biopsy at this level however, I personally would like to give her 2 units of fresh frozen plasma prior to getting the liver biopsy. As it turns out she needs to be n.p.o. and was eating her sausage and eggs this morning and so have made her n.p.o. prior to getting this procedure after getting the 2 units of fresh frozen plasma today--> interventional radiology can do her procedure likely towards the end of the day- -this will actually give her an opportunity to get her fresh frozen plasma as well. I have removed the patient's tray from her room, she was about half finished. Liver function tests are not back yet from today but the ammonia levels improved down to 51. I would certainly like to know whether this patient has metastatic or infectious process prior to putting them on prednisolone for presumed alcoholic cirrhosis. 01/04/17--Biopsy completed, patient does not need to stay in the hospital to await these results. She can follow-up in my office in 1-2 weeks for biopsy results and to follow-up. When I get these biopsy results we will initiate treatment with prednisolone or not based on findings. If metastatic disease is discovered will likely have to do a metastatic workup. She has the option of staying if she would like pending on how the hospitalist feels but she is certainly well enough from my standpoint to be discharged. She will need a prescription for lactulose and Xifaxan if she is discharged today. 01/05/17--We are awaiting liver biopsy results to see if prednisolone is appropriate (this is already been started by the hospitalist), versus metastatic disease. In review of the labs have just discovered that she has a elevated iron saturation of 92% which may be consistent with hemochromatosis. I have ordered a ferritin level to confirm that this is high. I written a prescription for lactulose and Xifaxan, I asked that the hospitalist write a prescription for the prednisolone 40 mg for 28 days if the biopsy shows no metastatic cancer. I suspect that it may just show regenerative nodules consistent with cirrhosis probably from the patient's alcohol +/- hemochromatosis. Current Visit: Yes (2) Acute hepatic encephalopathy Status: Acute Assessment and plan: Patient's ammonia level was elevated to 67 and she gives a history of being confused lately, she is certainly mildly confused in my discussions with her about her history vacillating in alcohol intake amounts between 6 beers a day and 3 cases of beer per day. I suspect the truth is somewhere in the middle. I am going to add some Xifaxan just because I believe that is going to dislike the lactulose intensely and she is already baulking at the flavor. We will watch and see how well ammonia levels improve over the next several days. She is also asking if she will be able to leave the hospital soon. 01/03/17--no gross evidence of hepatic encephalopathy in talking with this patient, she is a perfect historian is completely oriented with her ammonia level 51. Cephalexin continues as does lactulose. 01/04/17--the patient had 6 bowel movements in the last 2 shifts I will cut back her lactulose dosing 1 per day i.e. to 30 mL 3 times daily. Labs not returned from today but she seems extremely lucid. 01/05/17--Still awaiting liver biopsy results. Prescriptions written for Xifaxan and lactulose, she may need additional prescription for prednisolone as noted above depending on the presence of metastatic cancer. Cancer markers are negative. She is good to go to follow-up for repeat LFTs in my office in 6 weeks. She needs to remain abstinent from alcohol entirely. Current Visit: Yes (3) History of alcoholism Status: Acute Assessment and plan: I have emphasized that the patient that she likely has cirrhosis and hopefully we can bring her back from this episode. She absolutely needs to discontinue drinking entirely at this point needs to limit the amount of Tylenol that she takes in from here on. I suspect she has underlying cirrhosis we should be able to confirm this with a liver biopsy after we order this perhaps in the next 2 days. She would benefit from better insight as to her underlying problem /addiction. I am not sure what resources the patient can tap into over [facility] but I suspect they have an addictions/alcohol information systems security specialist. 01/03/17--Watch for onset of delirium tremens likely tomorrow or the next day, await liver biopsy today. 01/04/17--No evidence of delirium tremens yet. Await liver biopsy results. 01/05/17--Complete abstinence advocated. Current Visit: Yes (4) Multiple hypodensities in liver Status: Acute Assessment and plan: Again, I suspect this may be regenerative nodules interpreted by the radiologist as being metastatic disease however granulomas can appear this way as can true metastatic disease and we will certainly obtain a liver biopsy to look and see if cancer is present. We are waiting to see what the patient's INR will do with vitamin K supplementation. Her liver function tests are certainly radically different from March 2016 when they were last checked here at Hospital. Low platelet count the patient is experiencing is indicative to me of an underlying cirrhosis, along with her current coagulopathy. We will continue to watch these parameters as well. If the pathology from the liver demonstrates simple cirrhosis with alcoholic changes at that point we can certainly start the patient on prednisolone as mentioned previously. 01/03/17--These lesions were so diffuse on CT scan 2 days ago, I am fairly positive we should be able to hit 1 with a liver biopsy done routinely. CT scan will be done prior to the placement of the needle if a dominant lesion is seen interventional radiology can try and target this. My suspicion is these are regenerative nodules in association with alcoholic hepatitis/cirrhosis. Unfortunately as mentioned above the patient will need to be made n.p.o. and will benefit from getting fresh frozen plasma prior to being done 6-8 hours later today. She completed about half of her tray at 8:30 AM before she was discontinued. The liver biopsy is likely the last thing that she will need prior to be discharged to home again. The jaundice is going to take weeks to resolve, even with prednisolone. 01/04/17--As noted above. 01/05/17--Liver biopsy still pending. Current Visit: Yes Gastroenterology - PN: Subj Interval history: Patient has no complaints. Diarrhea is slightly better since the lactulose is been dropped back some. Exam (Progress Note) - Constitutional Vitals: Period Temp Pulse Resp BP Sys/Grajeda Pulse Ox Last 24 Hr 96.4 F-98.3 F 72-84 16-21 122-145/64-71 92-94 General appearance: no acute distress - Head Head exam: Present: normocephalic - Eye Eye exam: Present: EOMI, scleral icterus - Respiratory Respiratory exam: Present: clear to auscultation bilaterally - Cardiovascular Cardiovascular exam: Present: regular rate and rhythm - GI/Abdominal GI/Abdominal exam: Present: normal bowel sounds, soft. Absent: distended, tenderness, rebound - Extremities Exam Extremities exam: Absent: edema - Neurological Exam Neurological exam: Present: alert, oriented X3 - Psychiatric Psychiatric exam: Present: normal affect, normal mood - Skin Skin exam: Present: warm Results - Labs CBC & BMP: 01/05/17 05:01 01/05/17 05:01
[2017-01-05 09:23] LABS: Ferritin 427.7 ng/ml (8-252)
--- NOTE | 2017-01-05 09:51 | Discharge Summary ---
<Evelyn Monroeda - Last Filed: 01/05/17 09:41> Hospital Course - Hospital Course Hospital Course: This is a 51-year-old female that presented to the ED at [facility] on the morning of January 03, 2016 as a transfer from the [facility] for further evaluation of elevated ammonia and abnormal CT results. The patient has a medical history significant for alcohol abuse, asthma, pneumonia, cholecystectomy, type 2 diabetes, bipolar disorder. Apparently, the patient had presented to the [facility] for the evaluation of generalized body aches and headaches. During the encounter that, the patient was found to have a lipase of 134, amylase 572, INR of 1.4, and total bilirubin of 24. The patient's ammonia level was noted at 67. CT abdomen and pelvis with IV contrast was significant for multiple tiny hypodensities throughout the liver which was thought to be either metastatic disease or focal infection. The patient was subsequently transferred to [facility] for further evaluation. The patient was rehydrated and osmotic agents were initiated. Alcohol withdrawal protocol was initiated. A gastroenterology consultation was requested due to the gross hepatic abnormalities. The patient was seen and recommendations were given. On January 03, 2017, ultrasound-guided liver biopsy was performed and samples were sent for pathology. The patient was then started on prednisone and rifaximin was initiated. The patient's condition gradually improved. The patient's condition is stable. She has not experienced any significant overnight events. Today, we feel that she is indeed appropriate for discharge to follow-up with her primary care physician at the [facility] and classroom technology coach, Dr. Triplett as indicated. We have spoke with the patient in great detail regarding the need to refrain from alcohol use. The patient has also been instructed to continue lactulose, prednisone, and rifaximin as ordered. In addition, the patient has been instructed to follow-up with Dr. Triplett's office as indicated for biopsy report.Her vitals are stable, she will be dcd today. Specialty Discharge - Follow Up or Referrals Follow up with: Manuel Triplett MD [Physician] - 2 Weeks Discharge Plan - Discharge Data Disposition: Disch To Home/Self Care - Discharge Medications New HYDROcodone/ACETAMIN 5-325 [Ridge 5-325] 1 tablet PO Q4H PRN #20 tablet PRN Reason: Pain Moderate (4-7) hydrOXYzine HCL TAB [Atarax Tab] 25 mg PO Q6H PRN #30 tablet PRN Reason: Itching Lactulose Liquid [Chronulac] 20 gm PO TID #1 Multivitamin (Centrum) [Centrum Tab] 1 tablet PO DAILY #30 tablet Pantoprazole Tab [Protonix Tab] 40 mg PO DAILY #30 tablet Rifaximin [Xifaxan] 550 mg PO BID #60 tablet Thiamine Tab [Vitamin B1 Tab] 100 mg PO DAILY #30 tablet Folic Acid Tab 1 mg PO DAILY #30 tablet prednisoLONE TAB [prednisoLONE Tab] 40 mg PO DAILY #14 tablet - Follow Up or Referral Follow Up: Manuel Triplett MD [Physician] - 2 Weeks - Forms/Instructions Instructions: Cirrhosis (DC), Hepatic Encephalopathy (DC), Jaundice (DC) Exam - Constitutional Vitals: Period Temp Pulse Resp BP Sys/Grajeda Pulse Ox Last 24 Hr 96.4 F-98.3 F 72-80 16-21 122-145/64-71 92-94 Discharge Results Labs on day of discharge: Labs from last 24 hours 01/05/17 01/05/17 01/05/17 08:36 07:22 05:01 WBC RBC Hgb Hct MCV MCH MCHC RDW Plt Count MPV Neut % (Auto) Lymph % (Auto) Gem % (Auto) Eos % (Auto) Baso % (Auto) Neut # (Auto) Lymph # (Auto) Gem # (Auto) Eos # (Auto) Baso # (Auto) Immature Gran % Nucleated RBC % Immature Gran # Nucleated RBCs # Platelet Estimate Immature Plt Fraction Hypochromasia Ovalocytes Morphology Comment Sodium 139 Potassium 3.7 Chloride 109 H Carbon Dioxide 22 Anion Gap 11.7 BUN 9 Creatinine 0.70 GFR Calculation 113 BUN/Creatinine Ratio 12.00 Glucose 117 H POC Glucose 124 H Calculated Osmolality 276.5 Calcium 7.8 L Ferritin 427.7 H Total Bilirubin 16.80 H* AST 107 H ALT 45 Alkaline Phosphatase 179 H Ammonia 63 H Total Protein 6.0 L Albumin 1.5 L Globulin 4.5 H Albumin/Globulin Ratio 0.3 L Vbrnm-0-Nlyxigjjclm 01/05/17 01/02/17 05:01 16:41 WBC 4.8 D RBC 2.78 L Hgb 10.2 L Hct 28.7 L MCV 103.2 H MCH 37 H MCHC 35.5 RDW 20.4 H Plt Count 103 L MPV 10.0 Neut % (Auto) 71.8 Lymph % (Auto) 17.5 L Gem % (Auto) 9.5 Eos % (Auto) 0.2 Baso % (Auto) 0.2 Neut # (Auto) 3.4 Lymph # (Auto) 0.8 L Gem # (Auto) 0.5 Eos # (Auto) 0.0 Baso # (Auto) 0.0 Immature Gran % 0.8 Nucleated RBC % 0.0 Immature Gran # 0.04 Nucleated RBCs # 0.00 Platelet Estimate Decreased Immature Plt Fraction 2.8 Hypochromasia 1+ Ovalocytes Slight Morphology Comment Sodium Potassium Chloride Carbon Dioxide Anion Gap BUN Creatinine GFR Calculation BUN/Creatinine Ratio Glucose POC Glucose Calculated Osmolality Calcium Ferritin Total Bilirubin AST ALT Alkaline Phosphatase Ammonia Total Protein Albumin Globulin Albumin/Globulin Ratio Rjmfo-9-Favoohvjkds 149 DS: Provider Date of admission: 01/02/17 05:37 Primary care physician: Dinesh Clayton MD Attending physician on admission: Emir Polo MD Consults: 01/02/17 05:37 Consult to Physician [CONS] Routine Comment: Consulting Provider: Manuel Triplett Consult to Specialist Group: Gastroenterology When should Consulting Provider be notified: In am Person Notified: Zulay Date Notified: 01/02/17 Time Notified: 10:00 Discharging clinician: Jose David Monroe CNP <Renetta Vale - Last Filed: 01/05/17 12:33> Hospital Course - Time spent with patient Time with patient DS: Greater than 30 minutes (time spent greater than 35mins) Diagnosis - Discharge Diagnosis (1) Jaundice, hepatocellular Status: Acute (2) Multiple hypodensities in liver Status: Acute (3) Acute hepatic encephalopathy Status: Acute (4) Anemia Status: Acute (5) Hypokalemia Status: Acute Discharge Plan - Discharge Data Condition at Discharge: Stable Discharge Diet: high fiber diet Activity: resume usual activities as tolerated - Forms/Instructions Additional Discharge Instructions: Follow with PCP in 1week Exam - Constitutional General appearance: no acute distress - Head Head exam: Present: normal inspection - Respiratory Respiratory exam: Present: clear to auscultation bilaterally - Cardiovascular Cardiovascular exam: Present: regular rate and rhythm - GI/Abdominal GI/Abdominal exam: Present: normal bowel sounds - Extremities Exam Extremities exam: Present: normal inspection - Neurological Exam Neurological exam: Present: alert, oriented X3
[2017-01-05] MEDS: THIAMINE 100 MG TABLET PO SCH (10:26)
[2017-01-05] MEDS: LACTULOSE 20 GM/30 ML UDCUP PO SCH ×2 (10:26→16:03)
[2017-01-05] MEDS: MULTIVITAMIN (CENTRUM) TABLET PO SCH (10:26)
[2017-01-05] MEDS: PANTOPRAZOLE 40 MG TABLET PO SCH (10:26)
[2017-01-05] MEDS: FOLIC ACID 1 MG TABLET PO SCH (10:26)
[2017-01-05] MEDS: RIFAXIMIN 550 MG TABLET PO SCH (10:26)
[2017-01-05] MEDS: prednisoLONE 5 MG TABLET PO SCH (10:40)
[2017-01-05 12:57] VITALS: BP 118/62
--- NOTE | 2017-01-05 14:06 | Pathology Report from [facility] ---
[facility] ACCESSION # : [id number] PATIENT NAME : Anna Aly ORDERING DR : Deepak Medley MD CLINICAL HX: Alcoholic cirrhosis - Degenerative nodules vs malignancy POST-OP DX: Same SPECIMEN INFO: Liver biopsy GROSS DESCRIPTION: The specimen is received in formalin labeled with the patients name ANNA ALY and LIVER BX consists of multiple yellow-mullen tissue fragments measuring from 0.3 x 0.1 cm to 1.3 x 0.1 cm. Submitted in one cassette. DIAGNOSIS FOR ANNA ALY: LIVER BIOPSY: Steatohepatitis with established cirrhosis. Brunt activity grade: 2 (of 3). Brunt fibrosis score: 4 (of 4). Steatosis comprises 60% of the specimen. COLLECTED DATE: 01/03/2017 [facility] REPORT DATE: 01/04/2017 ELECTRONICALLY SIGNED BY: Titi Lacey M.D. 01/04/2017 - 12:02:06 ANNE
--- NOTE | 2017-01-12 07:20 | Physician Query Form ---
CLICK EDIT DOCUMENT TO SELECT QUERY ANSWER --> OK --> SIGN Mehreen Roberts RN, CCDS Certified Clinical Insole Doubler W) [phone] (f) [phone] [email or web address] PROVIDERS: Make your selection(s) from the choices in EACH section by typing an "x" and enter comments in the comment section. Please use your independent medical judgment in providing your response. This request does not imply that any particular answer is desired or expected. CLINICAL INDICATORS: (Providers should not edit this section) Pathology Findings: The medical record indicates that the patient was admitted with Liver Abnormalities, "ultrasound-guided liver biopsy was performed" and the pathology report is showing "DIAGNOSIS FOR ANNA ALY: LIVER BIOPSY: Steatohepatitis with established cirrhosis. Brunt activity grade: 2 (of 3). Brunt fibrosis score: 4 (of 4). Steatosis comprises 60% of the specimen." (xx) Steatohepatitis due to Alcoholism ( ) Steatohepatitis not due to Alcoholism Abnormal Pathology findings are not reported unless an authorized provider indicates their clinical significance Please select the best choice: (xx) I agree with the Pathology findings ( ) I disagree with the Pathology findings ( ) No clinical significance ( ) Other/clarification of findings, please specify: ( ) Clinically unable to determine COMMENTS: PLEASE ALSO DOCUMENT RESPONSE IN PROGRESS NOTES AND/OR DISCHARGE SUMMARY Use of terms such as suspected, likely, or probable (associated with a specific diagnosis that is being evaluated, monitored, or treated as if it exists) are acceptable and can be restated in the discharge summary if not ruled out. MTDD
== END 2017-01-05 14:45 | disposition home or self-care (01) | DRG 280 ==
LOC: EDUNIT# → EDBD → N.ED 04:08 → SUATTDRO 05:37 → N.EDINP 05:37 → N.5E 05:55
PROVIDERS: ADMIT Internal Medicine; ATTEND Internal Medicine

== ENCOUNTER 2017-01-09 13:34 | Inpatient (IN) ==
[2017-01-09] MEDS ORDERED: cefTRIAXone 1,000 MG in SODIUM CHLORIDE 0.9% 100 ML IV STA (15:07)
[2017-01-09] MEDS ORDERED: SODIUM CHLORIDE 0.9% 500 ML IV STA (15:07)
[2017-01-09] MEDS ORDERED: ALBUTEROL/IPRATROPIUM 3 ML NEB RESP TX STA (15:07)
--- NOTE | 2017-01-09 15:14 | EKG Report ---
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
--- NOTE | 2017-01-09 15:31 | Emergency Department Note ---
Berenice Whiting Brittany, am scribing for, and in the presence of, Quoc Prieto MD 15:11. Conner Whiting Charles R, MD, personally performed the services described in this documentation, ascribed by Connie Ng in my presence, and it is both accurate and complete 531 . Arrival - Arrival Chief Complaint: Abdominal / Flank Pain ED Nursing Triage Note: abd pain with fever at home 500cc Ns given enroute was DC'd recently for same complaint Mode of Arrival: Stretcher Limitations: No Limitations Source: Patient - History of Present Illness HPI Narrative: This is a 51 y/o [place] female,who presents to the ED with c/o abdominal pain which started earlier this morning. She states she has had a fever with the abdominal pain. She notes she was recently D/C (01/05) from here with the same complaint and is not getting any better.Pt denies any dysuria. She notes the abdominal pain has resolved. Pt has no other complaints/pain in the ED at this time. Pt has a PMHx of HTN, psychiatric/substance abuse tx, and anemia. Pt has had a cholecystectomy and colonoscopy. Pt has a family medical Hx of cancer, diabetes, and HTN. Pt is a current some day smoker. Onset (ago): hour(s) (Started earlier this morning) Consistency: constant, now resolved Severity: moderate, similar to previous episodes Allergies/Adverse Reactions: Allergies Allergy/AdvReac Type Severity Reaction Status Date / Time No Known Allergies Allergy Verified 03/23/16 16:42 Home Medications: Home Medications Medication Instructions Recorded Confirmed Type HYDROcodone/ACETAMIN 5-325 [Blachly 1 tablet PO Q4H PRN #20 tablet 01/05/17 Rx 5-325] Rifaximin [Xifaxan] 550 mg PO BID #60 tablet 01/05/17 01/09/17 Rx hydrOXYzine HCL TAB [Atarax Tab] 25 mg PO Q6H PRN #30 tablet 01/05/17 01/09/17 Rx prednisoLONE TAB [prednisoLONE Tab] 40 mg PO DAILY #14 tablet 01/05/17 01/09/17 Rx Albuterol Inhaler [Proventil 2 puff INH Q4H PRN 01/09/17 01/09/17 History Inhaler] Folic Acid Tab 1 mg PO QAM 01/09/17 01/09/17 History Lactulose Liquid [Chronulac] 20 gm PO BID 01/09/17 01/09/17 History Multivitamin (Centrum) [Centrum 1 tablet PO QAM 01/09/17 01/09/17 History Tab] Pantoprazole Tab [Protonix Tab] 40 mg PO QAM 01/09/17 01/09/17 History Thiamine Tab [Vitamin B1 Tab] 100 mg PO QAM 01/09/17 01/09/17 History predniSONE TAB [PredniSONE] 40 mg PO QAM 01/09/17 01/09/17 History Review of System - Review of System 12 point system: reviewed and no additional remarkable complaints except as stated - Review of System Constitutional: Present: fever Gastrointestinal: Present: abdominal pain Genitourinary female: Present: dysuria ( b) Medical,Surgical,& Family Hx - Medical History Cardio: History of: Hypertension No history of: Cardiovascular Problems Psychological: History of: Psychiatric/Substance Abuse Tx No history of: Bipolar Disorder HEENT: History of: Eye Problem Endocrine: No history of: Diabetes Mellitus (IDDM) Respiratory: History of: Asthma, Bronchitis, Pneumonia Gastrointestinal: History of: Liver Problems Musculoskeletal: No history of: Amputation Hematology: History of: Anemia - Surgical History Cardiac Surgeries: Patient Denies: Cardiac Catheterization Thoracic Surgeries: Patient denies;: Organ Transplant Neurologic Surgeries: Patient denies: Neurologic Surgery HEENT Surgeries: Patient denies: Eye Surgery, Thyroid Surgery Abdominal Surgeries: Surgical HX of: Cholecystectomy, Colonoscopy Patient denies: Abdominal Surgery, Hernia Repair Reproductive Surgeries: Patient denies;: Genitourinary Surgery, Gynecologic Surgery - Family History Family History: Reports;: Family Cancer (mom, dad), Family Diabetes (SISTER), Family Hypertension (mom, dad) Denies;: Family Psychiatric Problems - Social History Smoking Status: Current some day smoker Exam Vital Signs: Vital Signs Temperature 101.8 F H 01/09/17 14:21 Pulse Rate 88 01/09/17 15:58 Respiratory Rate 18 01/09/17 15:58 Blood Pressure 106/58 01/09/17 14:21 O2 Sat by Pulse Oximetry 97 01/09/17 15:58 - General General appearance: alert, in no apparent distress - Head Head exam: Present: atraumatic, normocephalic, normal inspection - Eye Eye exam: Present: normal appearance, PERRL, EOMI. Absent: nystagmus - ENT ENT exam: Present: normal exam, mucous membranes moist - Neck Neck exam: Present: normal inspection, full ROM, trachea midline. Absent: tenderness - Chest Chest inspection: Present: normal inspection, symmetric chest wall rise. Absent : tenderness - Respiratory Respiratory exam: Present: rhonchi. Absent: normal lung sounds bilaterally, respiratory distress - Cardiovascular Cardiovascular exam: Present: regular rate, normal rhythm, normal heart sounds. Absent: murmur, rubs, gallop, clicks, JVD - Abdominal Exam Abdominal exam: Present: soft, normal bowel sounds, ascites. Absent: distention , tenderness, guarding, rebound, rigidity - Rectal Exam Rectal exam: Present: deferred - Extremities Exam Extremities exam: Present: normal capillary refill, pedal edema (+2 pitting edema BLE). Absent: tenderness, calf tenderness - Back Exam Back exam: Present: normal inspection, full ROM. Absent: tenderness, muscle spasm, rashes - Neurological Exam Neurological exam: Present: alert, oriented X3, CN II-XII intact. Absent: motor sensory deficit - Psychiatric Psychiatric exam: Present: normal affect, normal mood. Absent: depressed, agitated, anxious, flat affect, manic - Skin Skin exam: Present: warm, dry, intact. Absent: normal color (Jaundice) Course - Consultations Consultation #1: Hospitalist will admit patient Time: 16:23 Results - Labs CBC & BMP: 01/09/17 15:31 01/09/17 15:31 Lab Results: I have reviewed the patients labs Critical Care Time Critical Care Time: Yes Total Critical Care Time: 60 Disposition Clinical Impression: History of alcoholism, Jaundice, hepatocellular, Pneumonia, Abdominal pain, Pancreatitis, Fever, Sepsis, Leukocytosis, Elevated liver enzymes Case discussed with: patient Disposition: Still a Patient Condition: Stable Time of Disposition: 16:24
[2017-01-09 15:32] LABS: Apearance,Urine CLOUDY (Clear); Bacteria,Urine Many /HPF (Few); Bilirubin,Urine Moderate mg/dL (Negative); Blood, Urine Large mg/dL (Negative); Glucose,Urine (UA) Negative (Negative); Ketones,Urine Negative (Negative); Mucus,Urine Occasional /LPF (Occasional); Nitrite,Urine Negative (Negative); Protein,Urine 30 MG/DL; RBC,Urine 28 /HPF (0-4); Squamous Epithelial Cell,Urine Occasional /HPF (0-10); Urine Color Amber (Yellow); Urine Specific Gravity 1.017 (1.001-1.035); WBC,Urine 1 /HPF (0-6)
[2017-01-09 15:32] LABS: Basophils % 0.2 % (0.0-0.8); Hematocrit 30.6 VOL% (35.7-47.0); Hemoglobin 10.8 GM/DL (12.0-16.0); Immature Granulocytes Absolute 0.13 #; Lymphocytes # 0.2 10*3/uL (1.4-4.0); Lymphocytes % 1.5 % (21.3-54.2); Mean Corpuscular HGB Conc 35.3 GM/DL (32-36); Mean Corpuscular Hemoglobin 37 PG (27-34); Mean Corpuscular Volume 105.2 FL (87-102); Mean Platelet Volume 10.4 FL (9.6-12.0); Monocytes # 0.3 10*3/uL (0.11-0.8); Monocytes % 2.2 % (1.7-12.7); NRBC # 0.03 10*3/uL; Neutrophils # 12.1 10*3/uL (1.4-7.4); Neutrophils % 95.1 % (38.7-73.9); Red Blood Count 2.91 MC/CUMM (3.8-5.5); Red Cell Distribution Width 20.1 % (9.3-17.3); White Blood Count 12.8 T/CUMM (4-12)
[2017-01-09 15:35] LABS: Platelet Count 78 T/CUMM (130-400)
--- NOTE | 2017-01-09 15:36 | XRay Report ---
XR chest 1V portable Indication: Shortness of breath and fever. Chest one view: Comparison 03/28/2016. Heart size and mediastinal contour remain normal. Coarsened interstitial markings of the lungs including right suprahilar scarring and mild diffuse perihilar bronchial thickening are stable. No new infiltrates identified. Pleural spaces are clear. No free air under the diaphragm. Impression: Mild airways disease such as chronic bronchitis. Interstitial scarring as described. Findings unchanged from 03/28/2016. PROCEDURE INTERPRETED AT [facility] DEPARTMENT OF RADIOLOGY Final Report Signed by: Emir Knight M.D.
--- NOTE | 2017-01-09 15:39 | XRay Report ---
XR abdomen 2V Indication: Abdominal pain. Abdomen 3 views: Cholecystectomy clips noted. No small bowel dilatation. There is a small amount of reactive small bowel left midabdomen, as well as some gas-filled loops of colon in the right mid abdomen. Elsewhere, normal amount of stool is shown the colon. No free air. Impression: No evidence of bowel obstruction. Mild gastroenteritis or ileus likely. PROCEDURE INTERPRETED AT [facility] DEPARTMENT OF RADIOLOGY Final Report Signed by: Emir Knight M.D.
[2017-01-09 15:45] LABS: INR 1.4; PT Patient Result 15.5 SECS
[2017-01-09 15:48] LABS: Albumin 1.6 G/DL (3.4-5.0); Bilirubin,Total 9.6 MG/DL (0.2-1.0); Calcium 7.9 MG/DL (8.5-10.1); Potassium 3.2 MMOL/L (3.5-5.1); Total Protein 6.2 G/DL (6.4-8.3)
[2017-01-09 15:52] LABS: Anisocytosis 2+; Lymphocytes 4 % (20-55); Macrocytosis 2+; Platelet Estimate Decreased; Polychromasia Slight; Segmented Neutrophils 96 % (50-85); Total Cells Counted 100
[2017-01-09 15:59] LABS: Lactic Acid 2.1 MMOL/L (0.4-2.0)
[2017-01-09] MEDS ORDERED: cefTRIAXone 1,000 MG VIAL ONE (16:22)
[2017-01-09] MEDS ORDERED: SODIUM CHLORIDE 0.9% 1,000 ML IV ONE (16:24)
[2017-01-09] MEDS ORDERED: SODIUM CHLORIDE 0.9% 3,000 ML IV ONE ×2 (16:24→17:34)
[2017-01-09] MEDS ORDERED: SODIUM CHLORIDE 0.9% 500 ML IV ONE (16:24)
[2017-01-09] MEDS ORDERED: MAGNESIUM SULF RIDER 4 GM in PREMIX 1 EACH IV PRN (16:29)
[2017-01-09] MEDS ORDERED: ALBUTEROL 2.5 MG/3 ML NEB RESP TX PRN (16:29)
[2017-01-09] MEDS ORDERED: MAGNESIUM SULF RIDER 2 GM in PREMIX 1 EACH IV PRN (16:29)
[2017-01-09] MEDS ORDERED: NOREPINEPHRINE 8 MG in SODIUM CHLORIDE 0.9% 242 ML IV SCH (16:30)
[2017-01-09] MEDS ORDERED: cefTRIAXone 1,000 MG in SODIUM CHLORIDE 0.9% 100 ML IV SCH (16:30)
[2017-01-09] MEDS ORDERED: SODIUM CHLORIDE 0.9% 1,000 ML IV SCH (16:30)
--- NOTE | 2017-01-09 16:33 | Hospitalist History & Physical ---
Assessment and Plan (1) Abdominal pain Status: Acute Assessment and plan: The patient has noted ascites upon examination however, denies abdominal pain at this time. The patient's amylase was noted at 613. The patient has chronic alcohol liver cirrhosis and reports that she is a current drinker. This may be largely due to the patient's alcohol use. We will keep the patient n.p.o., promote bowel rest, gently rehydrate, and manage her pain. We will consult gastroenterology to evaluate and assist. Current Visit: Yes (2) Elevated liver enzymes Status: Acute Assessment and plan: The patient's hepatic function is less than favorable. Total bilirubin noted at 9.6, AST 187, ALT 99, alkaline phosphatase at 227. Upon review of the patient's medical record, this is an actual improvement from the last clinical encounter in which the patient's total bilirubin was noted at 21.60. We will monitor closely. Resume lactulose and Xifaxan as previously ordered. Current Visit: Yes (3) Fever Status: Acute Assessment and plan: The patient was notably febrile at the time of ED presentation. The patient's temperature was noted at 101.8. We will obtain pancultures and start empiric antibiotic coverage and await culture and sensitivity report. Current Visit: Yes (4) Sepsis Status: Acute Assessment and plan: The patient clearly meets the severe sepsis criteria. At the time of ED presentation, the patient was noted to be febrile with a temperature noted at 101.8. In addition, the patient's white blood cell count was noted at 12.8, lactic acid 2.1, CRP at 5.5, total bilirubin at 9.60, and platelet count at 78. We will initiate the severe sepsis bundle per protocol. Current Visit: Yes Qualifiers: Sepsis type: sepsis due to unspecified organism Qualified Code(s): A41.9 - Sepsis, unspecified organism History of Present Illness Chief complaint: Abdominal/flank pain History of present illness: This is a chronically ill 51-year-old female that presented to the ED at [facility] this afternoon for the evaluation of abdominal pain. The patient has a medical history significant for hypertension , polysubstance abuse, asthma, bronchitis, bipolar disorder, recurrent pneumonia , liver cirrhosis, anemia, and current nicotine use. Patient has surgical history significant for cholecystectomy colonoscopy. Upon review of the patient 's medical record, the patient was recently admitted here at [facility] from January 02, 2017 through January 05, 2017 for symptoms similar in nature. During the clinical encounter, the patient was rehydrated, bowel rest was promoted, empiric antibiotic coverage was initiated, and pain management was rendered. The patient's symptoms improved and the patient was subsequently discharged on January 05, 2017. The patient reported that her that she was not getting any better however reported that her abdominal pain had resolved. She reported an acute onset of abdominal pain that reoccurred this morning. In addition, the patient reported that she had fever however she failed to take a temperature. She became alarmed prompting her to return to the ED at [facility] for further evaluation. Enroute to the ED; the patient was noted to be grossly hypotensive she was given normal saline bolus. The patient was assessed at the time of ED presentation. Patient's blood pressure had responded it was noted at 104/59. The patient was tachycardic with a heart rate noted at 103 however, the patient was febrile with a temperature noted at 101.8. Labs were obtained which were remarkable for white blood cell count of 12.8, hemoglobin 10.8, hematocrit 30.6 , platelet count of 78, ESR 106, potassium 3.2, chloride 108, carbon dioxide 20 , BUN 20, glucose 20, lactic acid 2.1, calcium 7.9, total bilirubin 9.60, AST 187, ALT 99, alkaline phosphatase 227, ammonia 29, C-reactive protein 5.55, total protein 6.2, albumin 1.6, and amylase at 613. Urinalysis was remarkable for a urine blood large, urine bilirubin moderate, urine urobilinogen 4.0, urine RBCs 28, urine WBCs 1, occasional squamous epithelial cells, and urine bacteria was noted as many. Abdominal x-ray essentially unremarkable for any evidence of bowel obstruction however mild gastroenteritis or ileus is likely. Chest x-ray reported mild airways disease such as chronic bronchitis and interstitial scarring was noted. After brief discussion with both Dr. Prieto and Dr. Dupont; the patient will be admitted to the hospitalist group for continuation of care. Due to the severity of the patient's current condition, the patient will be placed in the critical care setting. Upon review and assessment of the patient, the patient clearly meets the sepsis criteria. We will initiate the sepsis bundle per protocol. Home Medications Medication Instructions Recorded Confirmed Type HYDROcodone/ACETAMIN 5-325 [[place] 1 tablet PO Q4H PRN #20 tablet 01/05/17 Rx 5-325] Rifaximin [Xifaxan] 550 mg PO BID #60 tablet 01/05/17 01/09/17 Rx hydrOXYzine HCL TAB [Atarax Tab] 25 mg PO Q6H PRN #30 tablet 01/05/17 01/09/17 Rx prednisoLONE TAB [prednisoLONE Tab] 40 mg PO DAILY #14 tablet 01/05/17 01/09/17 Rx Albuterol Inhaler [Proventil 2 puff INH Q4H PRN 01/09/17 01/09/17 History Inhaler] Folic Acid Tab 1 mg PO QAM 01/09/17 01/09/17 History Lactulose Liquid [Chronulac] 20 gm PO BID 01/09/17 01/09/17 History Multivitamin (Centrum) [Centrum 1 tablet PO QAM 01/09/17 01/09/17 History Tab] Pantoprazole Tab [Protonix Tab] 40 mg PO QAM 01/09/17 01/09/17 History Thiamine Tab [Vitamin B1 Tab] 100 mg PO QAM 01/09/17 01/09/17 History predniSONE TAB [PredniSONE] 40 mg PO QAM 01/09/17 01/09/17 History Allergies Allergy/AdvReac Type Severity Reaction Status Date / Time No Known Allergies Allergy Verified 03/23/16 16:42 Medical,Surgical,& Family Hx - Medical History Cardio: History of: Hypertension No history of: Cardiovascular Problems Psychological: History of: Psychiatric/Substance Abuse Tx No history of: Bipolar Disorder HEENT: History of: Eye Problem Endocrine: No history of: Diabetes Mellitus (IDDM) Respiratory: History of: Asthma, Bronchitis, Pneumonia Gastrointestinal: History of: Liver Problems Musculoskeletal: No history of: Amputation Hematology: History of: Anemia - Surgical History Cardiac Surgeries: Patient Denies: Cardiac Catheterization Thoracic Surgeries: Patient denies;: Organ Transplant Neurologic Surgeries: Patient denies: Neurologic Surgery HEENT Surgeries: Patient denies: Eye Surgery, Thyroid Surgery Abdominal Surgeries: Surgical HX of: Cholecystectomy, Colonoscopy Patient denies: Abdominal Surgery, Hernia Repair Reproductive Surgeries: Patient denies;: Genitourinary Surgery, Gynecologic Surgery - Family History Family History: Reports;: Family Cancer (mom, dad), Family Diabetes (SISTER), Family Hypertension (mom, dad) Denies;: Family Psychiatric Problems - Social History Smoking Status: Current some day smoker Exam - Constitutional Vitals: Period Temp Pulse Resp BP Sys/Grajeda Pulse Ox Last 24 Hr 101.8 F 85-103 17-18 89-106/50-59 91-98 General appearance: normal weight, no acute distress - Head Head exam: Present: normal inspection, normocephalic - Eye Eye exam: Present: EOMI, other (Jaundice noted ). Absent: conjunctival injection Pupils: Present: JORDAN, normal accommodation - ENT ENT exam: Present: normal exam, normal external ear exam, normal oropharynx - Neck Neck exam: Present: normal inspection. Absent: lymphadenopathy, meningismus, thyromegaly - Respiratory Respiratory exam: Present: clear to auscultation bilaterally. Absent: rales, rhonchi, stridor, wheezes - Cardiovascular Cardiovascular exam: Present: regular rate and rhythm. Absent: carotid bruit, diastolic murmur, gallop, JVD, rubs, tachycardia - GI/Abdominal GI/Abdominal exam: Present: ascites, distended. Absent: psoas sign, tenderness - Extremities Exam Extremities exam: Present: normal inspection, normal capillary refill, full ROM. Absent: edema - Back Exam Back exam: Present: normal inspection - Neurological Exam Neurological exam: Present: alert, oriented X3, CN II-XII intact - Psychiatric Psychiatric exam: Present: flat affect - Skin Skin exam: Present: warm, other (Jaundice) Results - Labs CBC & BMP: 01/09/17 15:31 01/09/17 15:31 Lab Results: I have reviewed the past 24 hour labs Sepsis - Sepsis Classification of Sepsis: Severe Sepsis Possible / Suspected infection from: Pneumonia - Physical Exam Physical Exam: The patient clearly meets the severe sepsis criteria. At the time of ED presentation, the patient was noted to be febrile with a temperature noted at 101.8. In addition, the patient's white blood cell count was noted at 12.8, lactic acid 2.1, CRP at 5.5, total bilirubin at 9.60, and platelet count at 78. We will initiate the severe sepsis bundle per protocol. - Physical Exam Respiratory exam: clear to auscultation bilaterally Capillary Refill: Less Than 3 Seconds Peripheral pulses: Radial (L): 2+, Radial (R): 2+, Dorsalis Pedis (L) PM: 2+, Dorsalis Pedis (R) PM: 2+, Posterior Tibialis (L): 2+ Cardiovascular exam: regular rate and rhythm Skin exam: normal color
[2017-01-09 16:36] LABS: Sedimentation Rate-Westergren 106 MM/HR (0-30)
--- NOTE | 2017-01-09 17:52 | Event Note ---
Sepsis - Sepsis Classification of Sepsis: Severe Sepsis - Physical Exam Respiratory exam: clear to auscultation bilaterally Capillary Refill: Less Than 3 Seconds Peripheral pulses: Radial (L): 5+, Radial (R): 5+ Cardiovascular exam: regular rate and rhythm Skin exam: normal color
[2017-01-09] MEDS ORDERED: MAGNESIUM SULF RIDER 50 ML IV ONE (18:03)
[2017-01-09] MEDS ORDERED: PIPERACILLIN/TAZOBACTAM 3,375 MG VIAL IV ONE (18:03)
[2017-01-09] MEDS: PIPERACILLIN/TAZOBACTAM 3,375 MG in SODIUM CHLORIDE 0.9% 100 ML IV SCH (18:45)
[2017-01-09] MEDS: ALBUTEROL/IPRATROPIUM 3 ML NEB RESP TX SCH (20:41)
[2017-01-09] MEDS: POTASSIUM CHLORIDE RIDER 10 MEQ in PREMIX 1 EACH IV PRN ×2 (21:58→23:05)
[2017-01-10] MEDS: POTASSIUM CHLORIDE RIDER 10 MEQ in PREMIX 1 EACH IV PRN ×2 (00:11→01:13)
[2017-01-10] MEDS: ALBUTEROL/IPRATROPIUM 3 ML NEB RESP TX SCH ×4 (00:59→19:43)
[2017-01-10] MEDS: PIPERACILLIN/TAZOBACTAM 3,375 MG in SODIUM CHLORIDE 0.9% 100 ML IV SCH ×3 (02:00→17:44)
[2017-01-10 05:21] LABS: Basophils % 0.2 % (0.0-0.8); Eosinophils % 0.6 % (0.00-10.9); Hematocrit 32.3 VOL% (35.7-47.0); Hemoglobin 11.2 GM/DL (12.0-16.0); Immature Granulocytes % 0.9 %; Immature Granulocytes Absolute 0.05 #; Lymphocytes # 0.2 10*3/uL (1.4-4.0); Lymphocytes % 3.7 % (21.3-54.2); Mean Corpuscular HGB Conc 34.7 GM/DL (32-36); Mean Corpuscular Hemoglobin 37 PG (27-34); Mean Platelet Volume 10.1 FL (9.6-12.0); Monocytes % 0.7 % (1.7-12.7); NRBC # 0.02 10*3/uL; Neutrophils # 5.1 10*3/uL (1.4-7.4); Neutrophils % 93.9 % (38.7-73.9); Platelet Count 73 T/CUMM (130-400); Red Blood Count 3.02 MC/CUMM (3.8-5.5); Red Cell Distribution Width 19.9 % (9.3-17.3); White Blood Count 5.4 T/CUMM (4-12)
[2017-01-10 05:36] LABS: INR 1.5; PT Patient Result 15.8 SECS; Partial Thromboplastin Time 34.4 SECS (0-40)
[2017-01-10 05:40] LABS: Band Neutrophils 6 % (0-10); Lymphocytes 3 % (20-55); Segmented Neutrophils 91 % (50-85); Total Cells Counted 100
[2017-01-10 05:41] LABS: Hypochromasia 1+; Macrocytosis Slight; Platelet Estimate Decreased
[2017-01-10 05:46] LABS: Albumin 1.6 G/DL (3.4-5.0); Bilirubin,Total 9.1 MG/DL (0.2-1.0); Calcium 7.6 MG/DL (8.5-10.1); Osmolality,Calculated 282.3 MOS/KG (273-304); Potassium 3.4 MMOL/L (3.5-5.1)
[2017-01-10] MEDS: IBUPROFEN 600 MG TABLET PO PRN ×2 (06:06→22:23)
--- NOTE | 2017-01-10 07:30 | XRay Report ---
History: Shortness of breath Date: 01/10/2017 Study: Chest x-ray AP portable Comparison exam: 01/09/2017 There is increased prominence of the pulmonary vasculature, suggesting some interval development of pulmonary venous hypertension since the previous study. There is no felisa pneumonia. There is no pleural effusion. The cardiac silhouette is borderline to mildly prominent. There is mild azygos vein distention. The osseous structures are unchanged. Impression: Evidence of developing pulmonary venous hypertension PROCEDURE INTERPRETED AT [facility] DEPARTMENT OF RADIOLOGY Final Report Signed by: Dr. Mirela Mcrae
[2017-01-10 09:12] LABS: Risk Ratio 9.7; VLDL CHOLESTEROL 26.6 MG/DL
--- NOTE | 2017-01-10 12:58 | Hospitalist Progress Note ---
<Jose David Monroe - Last Filed: 01/10/17 12:55> Assessment and Plan (1) Abdominal pain Status: Acute Assessment and plan: The patient has noted ascites upon examination however, denies abdominal pain at this time. The patient's amylase was noted at 613. The patient has chronic alcohol liver cirrhosis and reports that she is a current drinker. This may be largely due to the patient's alcohol use. We will keep the patient n.p.o., promote bowel rest, gently rehydrate, and manage her pain. We will consult gastroenterology to evaluate and assist. 01/10-lipase noted at 583. We will continue gentle rehydration and pain management as previously ordered. We are awaiting GI consultation for further direction. Current Visit: Yes (2) Elevated liver enzymes Status: Acute Assessment and plan: The patient's hepatic function is less than favorable. Total bilirubin noted at 9.6, AST 187, ALT 99, alkaline phosphatase at 227. Upon review of the patient's medical record, this is an actual improvement from the last clinical encounter in which the patient's total bilirubin was noted at 21.60. We will monitor closely. Resume lactulose and Xifaxan as previously ordered. 01/10-total bilirubin noted at 9.10 a slight decline from 9.6 at the time of admission. This is an overall improvement from the last clinical encounter on last week in which the patient's total bilirubin was noted at 21.6. We will continue lactulose and Xifaxan as previously ordered. Current Visit: Yes (3) Fever Status: Acute Assessment and plan: The patient was notably febrile at the time of ED presentation. The patient's temperature was noted at 101.8. We will obtain pancultures and start empiric antibiotic coverage and await culture and sensitivity report. 01/10-Empiric antibiotic coverage was initiated at the time of admission; we will continue as previously ordered. Culture and sensitivity reports are pending. The patient's temperature was noted at 99.2. Current Visit: Yes (4) Sepsis Status: Acute Assessment and plan: The patient clearly meets the severe sepsis criteria. At the time of ED presentation, the patient was noted to be febrile with a temperature noted at 101.8. In addition, the patient's white blood cell count was noted at 12.8, lactic acid 2.1, CRP at 5.5, total bilirubin at 9.60, and platelet count at 78. We will initiate the severe sepsis bundle per protocol. Current Visit: Yes Qualifiers: Sepsis type: sepsis due to unspecified organism Qualified Code(s): A41.9 - Sepsis, unspecified organism Hospitalist: Subjective Interval history: Patient seen and examined; chart reviewed. No significant overnight events reported per staff. Amylase noted at 583. Exam - Constitutional Vitals: Period Temp Pulse Resp BP Sys/Grajeda Pulse Ox Last 24 Hr 97.5 F-101.8 F 75-115 17-22 89-155/43-72 91-99 General appearance: normal weight, no acute distress - Head Head exam: Present: normal inspection, normocephalic, atraumatic - Eye Eye exam: Present: EOMI, conjunctival injection Pupils: Present: JORDAN. Absent: normal accommodation - ENT ENT exam: Present: normal exam, normal external ear exam, normal oropharynx - Neck Neck exam: Present: normal inspection. Absent: lymphadenopathy, meningismus, thyromegaly - Respiratory Respiratory exam: Present: clear to auscultation bilaterally. Absent: rales, rhonchi, stridor - Cardiovascular Cardiovascular exam: Present: regular rate and rhythm. Absent: carotid bruit, diastolic murmur, gallop, JVD, rubs, systolic murmur - GI/Abdominal GI/Abdominal exam: Present: normal bowel sounds, ascites. Absent: tenderness, soft - Extremities Exam Extremities exam: Present: normal inspection, normal capillary refill, full ROM. Absent: edema - Back Exam Back exam: Present: normal inspection - Neurological Exam Neurological exam: Present: alert, oriented X3, CN II-XII intact - Psychiatric Psychiatric exam: Present: normal affect, normal mood - Skin Skin exam: Present: normal color, warm, dry Results - Labs CBC & BMP: 01/10/17 05:04 01/10/17 05:04 Lab Results: I have reviewed the past 24 hour labs <Renetta Vale - Last Filed: 01/10/17 13:37> Hospitalist: Subjective Interval history: Patient seen this am, she states she feels better.Her liver enzymes are trending upwards. She was recently dcd from our service and her Liver biopsy showedsteatohepatitis with established cirrhosis. She also spiked a temp of 100.5 overnight.We will continue to avoid hepatotoxics and repeat enzymes in am.Follow cultures. Exam - Constitutional Vitals: Period Temp Pulse Resp BP Sys/Grajeda Pulse Ox Last 24 Hr 97.5 F-101.8 F 75-115 17- 89-155/43-72 91-99 Results - Labs CBC & BMP: 01/10/17 05:04 01/10/17 05:04
--- NOTE | 2017-01-10 18:03 | ECHO Report ---
EmilioLauren Exam Date: 01/09/2017 17:11 Referring Physician: Technologist: January Cunningham RDCS Age: 51 Ht (in): 64 Wt (lb): 220 Gender: F Exam Location: [facility] Echo Indications: Abdominal pain, Alcoholic cirrhosis, Fever, Sepsis, hx polysubstance abuse, Elevated liver ezymes BP: 124 / 90 HR: 87 Rhythm: Sinus Technical Quality: IMPRESSIONS Left ventricular ejection fraction is estimated at 70 %. Diastolic parameters are most consistent with grade 2 diastolic dysfunction or pseudonormalization. Tricuspid regurgitation velocities suggest a RVSP of 33 mmHg plus the right atrial pressure. MEASUREMENTS (Male / Female) Normal Values 2D ECHO LV Diastolic Diameter PLAX 5.4 cm 4.2 - 5.9 / 3.9 - 5.3 cm LV Systolic Diameter PLAX 3.1 cm LV Fractional Shortening PLAX 41.4 % IVS Diastolic Thickness 1.0 cm 0.6 - 1.0 / 0.6 - 0.9 cm LVPW Diastolic Thickness 1.0 cm 0.6 - 1.0 / 0.6 - 0.9 cm RV Internal Dim ED PLAX 3.8 cm Aortic Root Diameter 3.0 cm LA Systolic Diameter LX 3.6 cm 3.0 - 4.0 / 2.7 - 3.8 cm DOPPLER TR Peak Velocity 286.0 cm/s TR Peak Gradient 32.7 mmHg FINDINGS Left Ventricle Mildly increased left ventricular cavity size. Mild left ventricular hypertrophy. Left ventricular ejection fraction is estimated at 70 %. Diastolic parameters are most consistent with grade 2 diastolic dysfunction or pseudonormalization Right Ventricle The right ventricle is normal in size and function. Right Atrium Mild atrial enlargement in apica view (elongated RA). Left Atrium Mild atrial enlargement in apical view (elongated LA). Mitral Valve Morphologically normal mitral valve. Mild mitral annular calcification. Trace to mild mitral valve regurgitation. Aortic Valve Morphologically normal aortic valve without significant sclerosis or stenosis. There is no aortic regurgitation. Tricuspid Valve Morphologically normal tricuspid valve. Mild tricuspid valve regurgitation. Tricuspid regurgitation velocities suggest a RVSP of 33 mmHg plus the right atrial pressure. Pulmonic Valve Morphologically normal pulmonic valve. Trace pulmonary valve regurgitation. Pericardium Normal pericardium without effusion. Aorta Normal ascending aorta dimension. Smiley Scanlon (Electronically Signed) Final Date: 10 January 2017 18:02
[2017-01-11] MEDS: PIPERACILLIN/TAZOBACTAM 3,375 MG in SODIUM CHLORIDE 0.9% 100 ML IV SCH ×3 (01:26→17:05)
[2017-01-11] MEDS: ALBUTEROL/IPRATROPIUM 3 ML NEB RESP TX SCH ×4 (01:57→20:46)
[2017-01-11 06:10] LABS: Basophils % 0.1 % (0.0-0.8); Eosinophils # 0.2 10*3/uL (0.0-0.87); Hematocrit 28.3 VOL% (35.7-47.0); Hemoglobin 9.9 GM/DL (12.0-16.0); Immature Granulocytes % 0.8 %; Immature Granulocytes Absolute 0.06 #; Lymphocytes # 1.1 10*3/uL (1.4-4.0); Lymphocytes % 15.9 % (21.3-54.2); Mean Corpuscular Hemoglobin 37 PG (27-34); Mean Platelet Volume 11.4 FL (9.6-12.0); Monocytes # 1.2 10*3/uL (0.11-0.8); Monocytes % 16.3 % (1.7-12.7); Neutrophils # 4.5 10*3/uL (1.4-7.4); Neutrophils % 63.9 % (38.7-73.9); Platelet Count 56 T/CUMM (130-400); Red Blood Count 2.67 MC/CUMM (3.8-5.5); Red Cell Distribution Width 20.2 % (9.3-17.3); White Blood Count 7.1 T/CUMM (4-12)
[2017-01-11 06:34] LABS: Band Neutrophils 2 % (0-10); Eosinophils 3 % (0-10); Hypochromasia 1+; Lymphocytes 13 % (20-55); Macrocytosis 1+; Metamyelocytes 1 %; Platelet Estimate Decreased; Segmented Neutrophils 67 % (50-85); Total Cells Counted 100
[2017-01-11 06:52] LABS: Albumin 1.2 G/DL (3.4-5.0); Bilirubin,Total 7.8 MG/DL (0.2-1.0); Calcium 7.2 MG/DL (8.5-10.1); Osmolality,Calculated 281.4 MOS/KG (273-304); Potassium 3.4 MMOL/L (3.5-5.1); Total Protein 5.2 G/DL (6.4-8.3)
--- NOTE | 2017-01-11 07:55 | XRay Report ---
History short of breath Comparison 01/10/2017 Mediastinal and hilar contours unchanged Minimal reticular opacities bilaterally are unchanged. No more focal consolidation seen Impression: No interval change PROCEDURE INTERPRETED AT [facility] DEPARTMENT OF RADIOLOGY Final Report Signed by: Dr. Arianna Lloyd
--- NOTE | 2017-01-11 14:11 | Hospitalist Progress Note ---
Assessment and Plan (1) Abdominal pain Status: Acute Assessment and plan: Liver biopsy showedsteatohepatitis with established cirrhosis. Pain has improved. liver enzymes are trending downwards. Current Visit: Yes (2) Liver cirrhosis, alcoholic Status: Acute Assessment and plan: Patient is willing to quit drinking.Liver enzymes are improving Plan CMP in am Current Visit: Yes (3) Fever Status: Acute Assessment and plan: She has not spiked a temp in the last 24hrs.BC showed no growth so far. Current Visit: Yes (4) Probable sepsis Status: Acute Assessment and plan: WBC has improved, patient has been afebrile in the last 24hrs, cultures are negative so far. CXR showed Minimal reticular opacities bilaterally are unchanged. No more focal consolidation seen. Continue with Empiric antibiotic coverage Current Visit: Yes Hospitalist: Subjective Interval history: Patient seen this am. She was tearful when we discussed her drinking habit and now willing to stop. She requests to stay till sunday so she can fully recuperate.Her jaundice looks better and her liver enzymes are coming down. Exam - Constitutional Vitals: Period Temp Pulse Resp BP Sys/Grajeda Pulse Ox Last 24 Hr 98.0 F-98.3 F 64-90 16-20 104-149/45-85 92-98 General appearance: no acute distress, other (juandiced) - Head Head exam: Present: normal inspection - Respiratory Respiratory exam: Present: clear to auscultation bilaterally - Cardiovascular Cardiovascular exam: Present: regular rate and rhythm - GI/Abdominal GI/Abdominal exam: Present: normal bowel sounds - Extremities Exam Extremities exam: Present: normal inspection - Neurological Exam Neurological exam: Present: alert, oriented X3 Results - Labs CBC & BMP: 01/11/17 05:45 01/11/17 05:45 Lab Results: I have reviewed the past 24 hour labs
[2017-01-11 14:40] LABS: Procalcitonin, S 5.3 ng/mL (<=0.15)
[2017-01-11] MEDS: IBUPROFEN 600 MG TABLET PO PRN (19:00)
[2017-01-12] MEDS: PIPERACILLIN/TAZOBACTAM 3,375 MG in SODIUM CHLORIDE 0.9% 100 ML IV SCH ×2 (01:07→10:05)
[2017-01-12] MEDS: ALBUTEROL/IPRATROPIUM 3 ML NEB RESP TX SCH ×4 (01:36→19:08)
[2017-01-12 05:58] LABS: Basophils % 0.2 % (0.0-0.8); Eosinophils # 0.2 10*3/uL (0.0-0.87); Hematocrit 27.2 VOL% (35.7-47.0); Hemoglobin 9.5 GM/DL (12.0-16.0); Immature Granulocytes % 0.6 %; Immature Granulocytes Absolute 0.03 #; Lymphocytes % 19.6 % (21.3-54.2); Mean Corpuscular HGB Conc 34.9 GM/DL (32-36); Mean Corpuscular Hemoglobin 37 PG (27-34); Mean Corpuscular Volume 105.4 FL (87-102); Mean Platelet Volume 11.7 FL (9.6-12.0); Monocytes # 0.8 10*3/uL (0.11-0.8); Monocytes % 16.4 % (1.7-12.7); Neutrophils # 3.1 10*3/uL (1.4-7.4); Neutrophils % 60.2 % (38.7-73.9); Red Blood Count 2.58 MC/CUMM (3.8-5.5); Red Cell Distribution Width 19.9 % (9.3-17.3); White Blood Count 5.1 T/CUMM (4-12)
[2017-01-12 06:01] LABS: Platelet Count 56 T/CUMM (130-400)
[2017-01-12 06:20] LABS: Eosinophils 5 % (0-10); Giant Platelets Few; Hypochromasia 1+; Lymphocytes 16 % (20-55); Macrocytosis Slight; Platelet Estimate Decreased; Segmented Neutrophils 65 % (50-85); Total Cells Counted 100
[2017-01-12 06:58] LABS: Albumin 1.3 G/DL (3.4-5.0); Bilirubin,Total 7.2 MG/DL (0.2-1.0); Calcium 6.9 MG/DL (8.5-10.1); Osmolality,Calculated 281.3 MOS/KG (273-304); Potassium 3.1 MMOL/L (3.5-5.1)
--- NOTE | 2017-01-12 07:43 | XRay Report ---
History is short of breath Comparison 01/11/2017 The heart and upper lobe vessels remain mildly enlarged There is slight improved aeration in the lung bases the. No new areas of consolidation seen Impression: 1. The cardiomegaly and vascular congestion again seen 2. Slight improved aeration in the lung bases PROCEDURE INTERPRETED AT [facility] DEPARTMENT OF RADIOLOGY Final Report Signed by: Dr. Arianna Lloyd
[2017-01-12] MEDS: POTASSIUM CHLORIDE RIDER 10 MEQ in PREMIX 1 EACH IV PRN (07:46)
[2017-01-12] MEDS ORDERED: POTASSIUM CHLORIDE 20 MEQ TABLET PO PRN (09:52)
[2017-01-12] MEDS: LEVOFLOXACIN 500 MG TABLET PO SCH (10:06)
[2017-01-12] MEDS: POTASSIUM CHLORIDE 20 MEQ TABLET PO SCH (10:06)
--- NOTE | 2017-01-12 12:38 | Hospitalist Progress Note ---
Assessment and Plan - Time spent with patient Time spent with patient: Less than 30 minutes (1) Liver cirrhosis, alcoholic Status: Acute Assessment and plan: 01/12/17 Liver enzymes AST 190; ALT 112; Alk Phos 195. Will repeat in the a.m. Current Visit: Yes (2) Elevated liver enzymes Status: Acute Assessment and plan: AST slight increase to 190; ALT slight increase to 112; Will repeat in a.m. Current Visit: Yes (3) Abdominal pain Status: Acute Assessment and plan: Improved. Will continue to monitor. No fever noted, VS stable. Will continue antibiotic therapy for empiric coverage and continue to monitor for final blood culture results. Current Visit: Yes Hospitalist: Subjective Interval history: Ms Jhaveri seen and chart reviewed. She is sitting up in chair brushing hair, verbalized feeling a little better today. She reports some leg cramps and cramps in her hands during last night but nothing this morning. Her potassium is a little low this a.m and replacement has been ordered. She denies shortness of breath, chest pain, fever, chills, nausea or vomiting. Exam - Constitutional Vitals: Period Temp Pulse Resp BP Sys/Grajeda Pulse Ox Last 24 Hr 97.4 F-98.3 F 76-90 16-20 108-140/52-70 92-98 General appearance: no acute distress, other (jaundice) - Head Head exam: Present: normal inspection - Eye Eye exam: Present: EOMI Pupils: Present: JORDAN - Neck Neck exam: Present: normal inspection - Respiratory Respiratory exam: Present: clear to auscultation bilaterally. Absent: rhonchi, stridor, wheezes - GI/Abdominal GI/Abdominal exam: Present: normal bowel sounds, soft. Absent: tenderness, rebound - Extremities Exam Extremities exam: Present: full ROM. Absent: edema - Neurological Exam Neurological exam: Present: alert, oriented X3, CN II-XII intact - Psychiatric Psychiatric exam: Present: normal affect, normal mood. Absent: agitated, anxious - Skin Skin exam: Present: normal color, warm, dry Results - Labs CBC & BMP: 01/12/17 04:31 01/12/17 04:31 Lab Results: I have reviewed the past 24 hour labs Labs: H&H remain stable at 9.5 & 27.2 K down to 3.1 from 3.4 will need replacement protocol AST 190 : and 183 yesterday ALT 112 : and 108 yesterday Alkaline phosphatase 195 : 177 yesterday - Diagnostic Findings Procedure: Chest x-ray: report reviewed by me (the cardiomegaly and vascular congestion again seen, slightly improved irrigation into the lung bases)
[2017-01-12] MEDS: CLINDAMYCIN 300 MG CAPSULE PO SCH ×2 (14:21→21:39)
[2017-01-12] MEDS: IBUPROFEN 600 MG TABLET PO PRN (21:39)
[2017-01-13] MEDS: ALBUTEROL/IPRATROPIUM 3 ML NEB RESP TX SCH ×4 (00:08→20:41)
[2017-01-13 06:09] LABS: Basophils % 0.2 % (0.0-0.8); Eosinophils # 0.1 10*3/uL (0.0-0.87); Eosinophils % 1.5 % (0.00-10.9); Hemoglobin 9.9 GM/DL (12.0-16.0); Immature Granulocytes % 1.2 %; Immature Granulocytes Absolute 0.07 #; Lymphocytes # 1.1 10*3/uL (1.4-4.0); Mean Corpuscular HGB Conc 35.4 GM/DL (32-36); Mean Corpuscular Hemoglobin 37 PG (27-34); Mean Corpuscular Volume 104.5 FL (87-102); Mean Platelet Volume 10.7 FL (9.6-12.0); Monocytes # 0.8 10*3/uL (0.11-0.8); Monocytes % 13.9 % (1.7-12.7); Neutrophils # 3.8 10*3/uL (1.4-7.4); Neutrophils % 64.2 % (38.7-73.9); Red Blood Count 2.68 MC/CUMM (3.8-5.5); Red Cell Distribution Width 19.1 % (9.3-17.3); White Blood Count 5.9 T/CUMM (4-12)
[2017-01-13 06:13] LABS: Platelet Count 62 T/CUMM (130-400)
[2017-01-13 06:16] LABS: INR 1.3
[2017-01-13 06:28] LABS: Albumin 1.3 G/DL (3.4-5.0); Bilirubin,Direct 6.3 MG/DL (0.0-0.20); Bilirubin,Indirect 1.5 MG/DL (0.0-1.0); Bilirubin,Total 7.8 MG/DL (0.2-1.0); Magnesium 2.3 MG/DL (1.8-2.4); Osmolality,Calculated 270.8 MOS/KG (273-304); Potassium 3.6 MMOL/L (3.5-5.1); Total Protein 5.2 G/DL (6.4-8.3)
[2017-01-13] MEDS: CLINDAMYCIN 300 MG CAPSULE PO SCH ×3 (06:32→21:26)
[2017-01-13 07:19] LABS: Burr Cells Slight; Macrocytosis 1+
[2017-01-13] MEDS: LEVOFLOXACIN 500 MG TABLET PO SCH (08:14)
[2017-01-13] MEDS: POTASSIUM CHLORIDE 20 MEQ TABLET PO SCH (08:15)
--- NOTE | 2017-01-13 08:38 | Hospitalist Progress Note ---
Assessment and Plan (1) Edema Status: Acute Assessment and plan: She has chronic edema of her lower extremities, which appears unchanged. Current Visit: Yes (2) Pneumonia Status: Acute Assessment and plan: She is significantly improved. She is presently on oral clindamycin and levofloxacin. She should be ready for discharge tomorrow. Current Visit: Yes Qualifiers: Pneumonia type: due to Pneumococcus Laterality: bilateral Lung location: lower lobe of lung Qualified Code(s): J13 - Pneumonia due to Streptococcus pneumoniae (3) Alcoholic cirrhosis Status: Acute Assessment and plan: Her liver function tests appear stable. Current Visit: No Qualifiers: Ascites presence: without ascites Qualified Code(s): K70.30 - Alcoholic cirrhosis of liver without ascites (4) Hypokalemia Status: Acute Assessment and plan: Her potassium today is 3.6. Current Visit: No (5) Sepsis Status: Acute Assessment and plan: Blood cultures have been negative. She continues on oral clindamycin and levofloxacin. Current Visit: Yes Qualifiers: Sepsis type: sepsis due to unspecified organism Qualified Code(s): A41.9 - Sepsis, unspecified organism Hospitalist: Subjective Interval history: Patient has been hospitalized with pneumonia and sepsis. She has been treated with intravenous antibiotics. She was a previously known history of cirrhosis and chronic peripheral edema. Blood cultures have been negative. If stable, she will be discharged tomorrow. Exam - Constitutional Vitals: Period Temp Pulse Resp BP Sys/Grajeda Pulse Ox Last 24 Hr 97.4 F-99.0 F 76-99 17-22 104-147/61-69 93-98 General appearance: no acute distress - Head Head exam: Present: normal inspection - Neck Neck exam: Present: normal inspection - Respiratory Respiratory exam: Present: clear to auscultation bilaterally - Cardiovascular Cardiovascular exam: Present: regular rate and rhythm - GI/Abdominal GI/Abdominal exam: Present: normal bowel sounds, soft, other (Nontender with no palpable masses or hepatosplenomegaly.) - Extremities Exam Extremities exam: Present: edema - Neurological Exam Neurological exam: Present: alert, oriented X3 - Skin Skin exam: Present: normal color, warm, intact Results - Labs CBC & BMP: 01/13/17 05:07 01/13/17 05:07
[2017-01-13] MEDS: IBUPROFEN 600 MG TABLET PO PRN (21:31)
[2017-01-14] MEDS: ALBUTEROL/IPRATROPIUM 3 ML NEB RESP TX SCH ×4 (02:05→20:10)
[2017-01-14] MEDS: CLINDAMYCIN 300 MG CAPSULE PO SCH ×3 (06:03→21:17)
[2017-01-14] MEDS ORDERED: CALCIUM CARBONATE CHEW 500 MG TABLET PO PRN (06:46)
[2017-01-14 07:06] LABS: Basophils % 0.4 % (0.0-0.8); Eosinophils # 0.1 10*3/uL (0.0-0.87); Eosinophils % 2.2 % (0.00-10.9); Hematocrit 27.2 VOL% (35.7-47.0); Hemoglobin 9.7 GM/DL (12.0-16.0); Immature Granulocytes % 0.9 %; Immature Granulocytes Absolute 0.05 #; Lymphocytes # 1.1 10*3/uL (1.4-4.0); Lymphocytes % 20.1 % (21.3-54.2); Mean Corpuscular HGB Conc 35.7 GM/DL (32-36); Mean Corpuscular Hemoglobin 38 PG (27-34); Mean Corpuscular Volume 105.4 FL (87-102); Mean Platelet Volume 11.1 FL (9.6-12.0); Monocytes # 0.9 10*3/uL (0.11-0.8); Monocytes % 15.8 % (1.7-12.7); Neutrophils # 3.3 10*3/uL (1.4-7.4); Neutrophils % 60.6 % (38.7-73.9); Platelet Count 71 T/CUMM (130-400); Red Blood Count 2.58 MC/CUMM (3.8-5.5); Red Cell Distribution Width 18.7 % (9.3-17.3); White Blood Count 5.4 T/CUMM (4-12)
[2017-01-14 07:46] LABS: Hypochromasia 2+; Lymphocytes 13 % (20-55); Microcytosis 1+; Platelet Estimate Decreased; Segmented Neutrophils 78 % (50-85); Total Cells Counted 100
[2017-01-14 07:47] LABS: Albumin 1.4 G/DL (3.4-5.0); Bilirubin,Total 8.3 MG/DL (0.2-1.0); Calcium 7.5 MG/DL (8.5-10.1); Osmolality,Calculated 278.4 MOS/KG (273-304); Potassium 4.2 MMOL/L (3.5-5.1); Total Protein 5.2 G/DL (6.4-8.3)
[2017-01-14] MEDS: POTASSIUM CHLORIDE 20 MEQ TABLET PO SCH (08:19)
[2017-01-14] MEDS: LEVOFLOXACIN 500 MG TABLET PO SCH (08:19)
--- NOTE | 2017-01-14 12:39 | Hospitalist Progress Note ---
Assessment and Plan (1) Abdominal pain Status: Acute Assessment and plan: Pt in abdomen has resolved. Continue treatment of IV antibiotics. Current Visit: Yes (2) Liver cirrhosis, alcoholic Status: Acute Assessment and plan: LFTs are decreasing daily. Current Visit: Yes Hospitalist: Subjective Interval history: Patient seen and examined this morning. Labs and chart reviewed. Patient resting comfortably in chair alert and oriented. Pt. complains of increased swelling to bilateral lower extremity but otherwise has no complaints. Blood cultures negative. Pt. is still on IV antibiotic therapy. Will continue through Sunday. Possible discharge tomorrow. Exam - Constitutional Vitals: Period Temp Pulse Resp BP Sys/Grajeda Pulse Ox Last 24 Hr 98.2 F-98.9 F 75-102 16-20 108-207/59-111 95-99 General appearance: no acute distress, over weight - Head Head exam: Present: normal inspection, normocephalic - Eye Eye exam: Present: EOMI Pupils: Present: JORDAN - Respiratory Respiratory exam: Present: clear to auscultation bilaterally. Absent: wheezes - Cardiovascular Cardiovascular exam: Present: regular rate and rhythm - GI/Abdominal GI/Abdominal exam: Present: normal bowel sounds, soft. Absent: tenderness - Neurological Exam Neurological exam: Present: alert - Psychiatric Psychiatric exam: Present: normal affect, normal mood - Skin Skin exam: Present: normal color, warm, dry Results - Labs CBC & BMP: 01/14/17 06:07 01/14/17 06:07 Lab Results: I have reviewed the past 24 hour labs
[2017-01-14] MEDS: FUROSEMIDE 40 MG TABLET PO SCH ×2 (14:12→21:17)
[2017-01-14] MEDS: IBUPROFEN 600 MG TABLET PO PRN (21:17)
[2017-01-14] MEDS: metOLazone 5 MG TABLET PO SCH (21:17)
[2017-01-15] MEDS: ALBUTEROL/IPRATROPIUM 3 ML NEB RESP TX SCH ×2 (01:30→07:12)
[2017-01-15] MEDS: CLINDAMYCIN 300 MG CAPSULE PO SCH (06:21)
--- NOTE | 2017-01-15 08:54 | Discharge Summary ---
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 Upon arrival to the ER, she was febrile at 101.0, with a mild tachycardia.ABD Xray showed no evidence of bowel obstruction; mild gastroenteritis or ileus likely. Liver enzymes were elevated and amylase was 613, and lipase 160. She was admitted for probable sepsis,started on IV antibiotics,made NPO, CXR showed Minimal reticular opacities bilaterally are unchanged. No more focal consolidation seen.BC showed no growth.Liver enzymes progressively improved. She was later started on po intake, diet was advanced. She was counseled to quit drinking. dock worker was consulted for a possible outpt rehab.Urinalysis was positive, UC has been ordered, PCP to follow results. Patient's condition improved, jaundice also improved and patient is ready to be dcd.She will follow with pcp in 1week and GI as scheduled. Diagnosis - Discharge Diagnosis (1) Liver cirrhosis, alcoholic Status: Acute (2) Elevated liver enzymes Status: Acute (3) Abdominal pain Status: Acute Discharge Plan - Discharge Data Disposition: Home Health Service - Discharge Medications New Furosemide Tab [Lasix Tab] 40 mg PO BID #60 tablet Ibuprofen Tab [Motrin Tab] 600 mg PO Q6H PRN #0 tablet PRN Reason: Fever, Headache, Mild Pain Levofloxacin Tab [Levaquin Tab] 500 mg PO DAILY #10 tablet Potassium Chloride 10 meq PO DAILY #20 capsule Calcium Carbonate Chew [Tums] 2 tablet PO Q4H PRN tablet PRN Reason: Dyspepsia metOLazone [Zaroxolyn] 5 mg PO BID #60 tablet Continue hydrOXYzine HCL TAB [Atarax Tab] 25 mg PO Q6H PRN #30 tablet PRN Reason: Itching Rifaximin [Xifaxan] 550 mg PO BID #60 tablet Albuterol Inhaler [Proventil Inhaler] 2 puff INH Q4H PRN PRN Reason: Shortness Of Breath/Wheezing Folic Acid Tab 1 mg PO QAM Multivitamin (Centrum) [Centrum Tab] 1 tablet PO QAM Pantoprazole Tab [Protonix Tab] 40 mg PO QAM Thiamine Tab [Vitamin B1 Tab] 100 mg PO QAM HYDROcodone/ACETAMIN 5-325 [[place] 5-325] 1 tablet PO Q4H PRN #20 tablet PRN Reason: Pain Moderate (4-7) Lactulose Liquid [Chronulac] 20 gm PO BID Discontinued prednisoLONE TAB [prednisoLONE Tab] 40 mg PO DAILY #14 tablet - Follow Up or Referral - Forms/Instructions Exam - Constitutional Vitals: Period Temp Pulse Resp BP Sys/Grajeda Pulse Ox Last 24 Hr 97.0 F-98.8 F 77-96 16-20 115-148/55-88 92-99 Discharge Results Procedures and tests throughout hospitalization: Pending Orders 01/09/17 17:34 Urine Culture Stat DS: Provider Date of admission: 01/09/17 16:22 Primary care physician: Dinesh Clayton MD Attending physician on admission: Rod Barrientos MD Consults: 01/09/17 20:11 Consult to Dietitian [CONS] Routine Reason for Dietitian: Other Discharging clinician: Mohini Dalton NP <Renetta Vale - Last Filed: 01/15/17 12:24> Hospital Course - Time spent with patient Time with patient DS: Greater than 30 minutes (time spent greater than 35mins) Diagnosis - Discharge Diagnosis (1) Abdominal pain Status: Acute (2) Liver cirrhosis, alcoholic Status: Acute (3) Fever Status: Acute (4) Probable sepsis Status: Acute (5) UTI (urinary tract infection) Status: Acute Discharge Plan - Discharge Data Condition at Discharge: Stable Discharge Diet: advance to your usual diet Activity: resume usual activities as tolerated - Forms/Instructions Additional Discharge Instructions: Follow with PCP in 1week, PCP to follow with urine cultures. Follow with GI as scheduled. Exam - Constitutional General appearance: other (jaundice) - Respiratory Respiratory exam: Present: clear to auscultation bilaterally - Cardiovascular Cardiovascular exam: Present: regular rate and rhythm - GI/Abdominal GI/Abdominal exam: Present: normal bowel sounds - Extremities Exam Extremities exam: Present: normal inspection - Neurological Exam Neurological exam: Present: alert, oriented X3
[2017-01-15] MEDS: LEVOFLOXACIN 500 MG TABLET PO SCH (09:25)
[2017-01-15] MEDS: metOLazone 5 MG TABLET PO SCH (09:25)
[2017-01-15] MEDS: FUROSEMIDE 40 MG TABLET PO SCH (09:25)
[2017-01-15] MEDS: POTASSIUM CHLORIDE 20 MEQ TABLET PO SCH (09:25)
[2017-01-15 11:47] VITALS: BP 132/70
--- NOTE | 2017-01-17 08:03 | Physician Query Form ---
CLICK EDIT DOCUMENT TO SELECT QUERY ANSWER --> OK --> SIGN Arabella Bazan RN Clinical General Road Supervisor W) [phone] (f) [phone] [email or web address] PROVIDERS: Make your selection(s) from the choices in EACH section by typing an "x" and enter comments in the comment section. Please use your independent medical judgment in providing your response. This request does not imply that any particular answer is desired or expected. CLINICAL INDICATORS: (Providers should not edit this section) The below diagnosis was documented in the record, but is not consistently noted in subsequent documentation. Based on documentation of "Pneumonia" CXR 01/09 shows "Mild airway disease such as bronchitis" CXR 8 shows "There is no felisa pneumonia" Treated with Duo Nebs, IV Rocephin, and IV Zosyn. Diagnosis:Pneumonia Please clarify the following: ( X) The above diagnosis was monitored, evaluated, and/or treated and is a confirmed diagnosis ( ) The above diagnosis was ruled out ( ) The above diagnosis is still a likely, suspected, probable diagnosis ( ) Other, please specify: ( ) Clinically unable to determine COMMENTS: PLEASE ALSO DOCUMENT RESPONSE IN PROGRESS NOTES AND/OR DISCHARGE SUMMARY Use of terms such as suspected, likely, or probable (associated with a specific diagnosis that is being evaluated, monitored, or treated as if it exists) are acceptable and can be restated in the discharge summary if not ruled out. MTDD
== END 2017-01-15 13:00 | disposition home health service (06) | DRG 720 ==
LOC: EDUNIT# → EDBD → N.ED 13:34 → N.EDINP 16:22 → SUATTDRO 16:22 → N.EDINP 18:57 → N.5E 19:49
PROVIDERS: ADMIT Family Medicine; ATTEND Internal Medicine

== ENCOUNTER 2017-02-04 12:28 | Inpatient (IN) ==
[2017-02-04] MEDS ORDERED: NALOXONE 0.4 MG/ML VIAL IV STA (13:07)
--- NOTE | 2017-02-04 13:11 | Emergency Department Note ---
Arrival - Arrival Chief Complaint: Altered Mental Status Stated Complaint: altered loc ED Nursing Triage Note: Brought in per EMS from home with c/o altered mental status onset 4 days ago. Awake and alert to name and place. Also c/o decreased appetite. Sclera yellow--history of cirrhosis. Denies pain. Mode of Arrival: Stretcher Limitations: Altered Mental Status Time Seen by Provider: 02/04/17 13:07 - History of Present Illness HPI Narrative: This 51-year-old [place] female presents via EMS from home where she as reported by the family to have been increasingly disoriented over the last 4 days. The patient currently is oriented only to person and place but not to time and is very lethargic with no significant cognizant history given. The patient does have a history of cirrhosis but no family member or records accompanied the patient to further elaborate on this issue. Currently she is lethargic but medically stable. Onset (ago): day(s) (Patient presents 4 days post onset of) Date of Last Menstrual Period: PM Allergies/Adverse Reactions: Allergies Allergy/AdvReac Type Severity Reaction Status Date / Time No Known Allergies Allergy Verified 02/04/17 12:37 Home Medications: Home Medications Medication Instructions Recorded Confirmed Type Rifaximin [Xifaxan] 550 mg PO BID #60 tablet 01/05/17 02/04/17 Rx hydrOXYzine HCL TAB [Atarax Tab] 25 mg PO Q6H PRN #30 tablet 01/05/17 02/04/17 Rx Albuterol Inhaler [Proventil 2 puff INH Q4H PRN 01/09/17 02/04/17 History Inhaler] Folic Acid Tab 1 mg PO QAM 01/09/17 02/04/17 History Lactulose Liquid [Chronulac] 20 gm PO BID 01/09/17 02/04/17 History Pantoprazole Tab [Protonix Tab] 40 mg PO QAM 01/09/17 02/04/17 History Furosemide Tab [Lasix Tab] 40 mg PO BID #60 tablet 01/15/17 02/04/17 Rx HYDROcodone/ACETAMIN 5-325 [[place] 1 tablet PO Q4H PRN #20 tablet 01/15/17 Rx 5-325] Ibuprofen Tab [Motrin Tab] 600 mg PO Q6H PRN #0 tablet 01/15/17 02/04/17 Rx Levofloxacin Tab [Levaquin Tab] 500 mg PO DAILY #10 tablet 01/15/17 02/04/17 Rx Potassium Chloride 10 meq PO DAILY #20 capsule 01/15/17 02/04/17 Rx metOLazone [Zaroxolyn] 5 mg PO BID #60 tablet 01/15/17 02/04/17 Rx Review of System - Review of System 12 point system: reviewed and no additional remarkable complaints except as stated - Review of System Gastrointestinal: Present: as per HPI Neurological: Present: as per HPI Medical,Surgical,& Family Hx - Medical History Cardio: History of: Hypertension No history of: Cardiovascular Problems Psychological: History of: Psychiatric/Substance Abuse Tx No history of: Anxiety Disorders, ADHD, Behavior Problems, Bipolar Disorder, Depression, Previous Suicide Attempt, Schizophrenia, Violent Behavior, Psychiatric Problems HEENT: History of: Eye Problem Endocrine: History of: Diabetes Mellitus (IDDM) Respiratory: History of: Asthma, Bronchitis, Pneumonia Gastrointestinal: History of: Liver Problems Musculoskeletal: No history of: Amputation Hematology: History of: Anemia - Surgical History Cardiac Surgeries: Patient Denies: Cardiac Catheterization Thoracic Surgeries: Patient denies;: Organ Transplant Neurologic Surgeries: Patient denies: Neurologic Surgery HEENT Surgeries: Patient denies: Eye Surgery, Thyroid Surgery Abdominal Surgeries: Surgical HX of: Cholecystectomy, Colonoscopy Patient denies: Abdominal Surgery, Hernia Repair Reproductive Surgeries: Patient denies;: Genitourinary Surgery, Gynecologic Surgery - Family History Family History: Reports;: Family Cancer (mom, dad), Family Diabetes (SISTER), Family Hypertension (mom, dad) Denies;: Family Psychiatric Problems - Social History Smoking Status: Current some day smoker Frequency of Alcohol Use: Occasionally Type of Drug Use: None Exam Physical Examination: GENERAL: Well developed, well nourished 51-year-old [place] female in no acute distress. HEENT: Normocephalic. No trauma. Moist mucous membranes. EOMI. PERRLA. Scleral icterus ENT NML NECK: Supple. No adenopathy. CARDIAC: Regular. No murmurs. Heart rate 68 CHEST: Clear to auscultation. No respiratory distress. O2 sat 100% ABDOMEN: Soft. Nontender. Active bowel sounds. EXTREMITIES: No trauma. Normal ROM. No pedal edema. SKIN: No diaphoresis. No rash. Jaundiced. NEURO: Alert but confused and lethargic. Motor, sensory, vibratory intact. No focal deficits. Vital Signs: Vital Signs Temperature 97.6 F 02/04/17 12:28 Pulse Rate 68 02/04/17 12:28 Respiratory Rate 20 02/04/17 12:28 Blood Pressure 82/36 02/04/17 12:28 O2 Sat by Pulse Oximetry 100 02/04/17 13:30 Course - Reevaluation(s) Reevaluation #1: Advised patient of need for admission although I do not think she is cognizant enough to understand. - Consultations Consultation #1: Discussed with hospitalist service who will admit for further evaluation treatment. Results - Labs CBC & BMP: 02/04/17 13:26 02/04/17 13:26 Labs: I reviewed the laboratory noted the wide spectrum of abnormalities related to her liver disease as well as the severely depleted potassium. - Impressions EKG: Mary rhythm at 68 with normal QRS with evidence of left ventricular hypertrophy and strain as well as old inferior MA. No acute injury pattern noted. - Diagnostic Findings Procedure: Chest x-ray: image reviewed by me, report reviewed by me (No acute disease), CT: image reviewed by me, report reviewed by me (Head: Normal brain) Disposition Clinical Impression: Hepatic encephalopathy, Alcoholic liver disease, Cirrhosis, Severe hypokalemia Case discussed with: patient Disposition: Still a Patient Condition: Guarded Time of Disposition: 14:57
[2017-02-04] MEDS ORDERED: NALOXONE 0.4 MG/ML VIAL ONE (13:18)
--- NOTE | 2017-02-04 13:19 | EKG Report ---
Stationary ECG Study [facility] ER Test Date: 02/04/2017 1:18:17 PM Pat Name: ANNA ALY Department: Room: Gender: F Donor Technician: : 1965 Requested by: Kaiden Quigley Order Number: [id number] Reading MD: JETHRO ESTRADA Intervals [place] Rate: 68 P: 999 ME: 0 QRS: 5 QRSD: 110 T: 147 QT: 429 QTc: 447 Interpretive Statements SUPRAVENTRICULAR RHYTHM LEFT VENTRICULAR HYPERTROPHY AND ST-T CHANGE INFERIOR MYOCARDIAL INFARCTION, PROBABLY OLD WITH POSTERIOR EXTENSION Electronically Signed On 02-04-17 18:21:15 CDT by JETHRO ESTRADA [email or web address]
[2017-02-04 13:50] LABS: INR 1.4; PT Patient Result 14.6 SECS; Partial Thromboplastin Time 33.6 SECS (0-40)
[2017-02-04 13:56] LABS: Apearance,Urine CLEAR (Clear); Bacteria,Urine Occasional /HPF (Few); Bilirubin,Urine Negative (Negative); Blood, Urine Negative (Negative); Glucose,Urine (UA) Negative (Negative); Hyaline Casts,Urine 12 /LPF (0-3); Ketones,Urine 5 mg/dL (Negative); Mucus,Urine Occasional /LPF (Occasional); Nitrite,Urine Negative (Negative); Protein,Urine Negative; RBC,Urine 3 /HPF (0-4); Squamous Epithelial Cell,Urine Occasional /HPF (0-10); Urine Color Amber (Yellow); Urine Urobilinogen < 2.0 EU/DL (0.2-1.0); WBC,Urine 1 /HPF (0-6)
[2017-02-04 14:01] LABS: Basophils % 0.6 % (0.0-0.8); Eosinophils # 0.2 10*3/uL (0.0-0.87); Eosinophils % 2.4 % (0.00-10.9); Hematocrit 30.2 VOL% (35.7-47.0); Immature Granulocytes % 0.7 %; Immature Granulocytes Absolute 0.05 #; Lymphocytes # 2.1 10*3/uL (1.4-4.0); Lymphocytes % 30.8 % (21.3-54.2); Mean Corpuscular HGB Conc 39.1 GM/DL (32-36); Mean Corpuscular Hemoglobin 38 PG (27-34); Mean Corpuscular Volume 98.1 FL (87-102); Mean Platelet Volume 10.5 FL (9.6-12.0); Monocytes % 15.4 % (1.7-12.7); Neutrophils # 3.4 10*3/uL (1.4-7.4); Neutrophils % 50.1 % (38.7-73.9); Platelet Count 117 T/CUMM (130-400); Red Blood Count 3.08 MC/CUMM (3.8-5.5); Red Cell Distribution Width 13.6 % (9.3-17.3); White Blood Count 6.7 T/CUMM (4-12)
[2017-02-04 14:02] LABS: Hemoglobin 11.8 GM/DL (12.0-16.0)
[2017-02-04 14:02] LABS: Barbiturates Screen,Urine Negative (Negative); Benzodiazepines Screen,Urine Negative (Negative); Cannabinoid Screen,Urine Negative (Negative); Opiate Screen,Urine Negative (Negative); Phencyclidine Screen,Urine Negative (Negative)
--- NOTE | 2017-02-04 14:04 | XRay Report ---
Single view the chest. Indication: Altered mental status. Comparison: January 12, 2017. The heart is normal in size. The pulmonary vasculature is normal. The interstitial lung markings are mildly prominent at the bases, but improved from the previous. Degenerative changes are noted within the spinal column. Impression: Chronic lung changes. No acute abnormality. PROCEDURE INTERPRETED AT [facility] DEPARTMENT OF RADIOLOGY Final Report Signed by: Dr. Maria Victoria Lloyd
[2017-02-04 14:06] LABS: Ammonia 109 UMOL/L (11-32); Troponin I Only 0.028 NG/ML (0.00-0.045)
--- NOTE | 2017-02-04 14:12 | CT Report ---
CT of the head without contrast. Indication: Altered mental status. No previous study. The ventricles are normal in size and configuration. There is no mass effect, midline shift, or area of hemorrhage. No ischemic lesions are seen. The calvarium is intact. The included paranasal sinuses and the mastoid air cells are clear. Impression: No abnormality is seen. The CT exam was performed using one or more of the following dose reduction techniques: Automated exposure control, adjustment of the mA and/or kV according to patient size, or use of iterative reconstruction technique. PROCEDURE INTERPRETED AT [facility] DEPARTMENT OF RADIOLOGY Final Report Signed by: Dr. Maria Victoria Lloyd
[2017-02-04 14:40] LABS: Albumin 1.8 G/DL (3.4-5.0); Bilirubin,Total 8.5 MG/DL (0.2-1.0); Calcium 8.5 MG/DL (8.5-10.1); Osmolality,Calculated 278.8 MOS/KG (273-304); Total Protein 7.7 G/DL (6.4-8.3)
[2017-02-04 14:42] LABS: Potassium 1.8 MMOL/L (3.5-5.1)
[2017-02-04] MEDS ORDERED: SODIUM CHLOR 0.9% KCL 40 MEQ 40 MEQ/1,000 ML BAG IV SCH ×2 (15:00→16:00)
[2017-02-04] MEDS ORDERED: SODIUM CHLOR 0.9% KCL 40 MEQ 40 MEQ/1,000 ML BAG IV ONE ×2 (15:17→15:36)
--- NOTE | 2017-02-04 15:19 | Hospitalist History & Physical ---
Assessment and Plan (1) Hypokalemia Status: Acute Assessment and plan: Continue normal saline with potassium at 250 an hour 1 bag in 2 separate diabetes. Continue p.o. replacement with K-Dur crushed every 3 hours 3. Repeat potassium. Check stat TSH. Current Visit: Yes (2) Acute hepatic encephalopathy Status: Acute Assessment and plan: Continue Xifaxan hold lactulose until the potassium is normalized. Current Visit: No (3) Alcoholic cirrhosis Status: Acute Assessment and plan: Elevated ammonia level cannot be treated until potassium is returned to normal, Pepcid IV, Ativan as needed agitation, thiamine and folate Current Visit: No Qualifiers: Ascites presence: without ascites Qualified Code(s): K70.30 - Alcoholic cirrhosis of liver without ascites (4) Alcoholic hepatitis Status: Acute Assessment and plan: Patient still an active alcoholic alcohol level less than 15. No family available to find out when her last drink was. Continue to monitor Current Visit: No (5) Anemia Status: Acute Assessment and plan: Continue to monitor, Pepcid IV Current Visit: No Qualifiers: Anemia type: other cause Other causes of anemia: chronic disease, other Qualified Code(s): D63.8 - Anemia in other chronic diseases classified elsewhere (6) Hypotension Status: Acute Assessment and plan: Sepsis order set used, most likely secondary to dehydration on sepsis. Will use meropenem. Current Visit: Yes (7) Hyponatremia Status: Acute Assessment and plan: Due to severe dehydration. Hold Lasix and spironolactone Current Visit: Yes History of Present Illness Chief complaint: nausea and vomiting History of present illness: Ms. Jhaveri is a 51 year old female [place] female presents via EMS from home where she as reported by the family to have been increasingly disoriented over the last 4 days. The patient currently is oriented only to person, lethargic, no family present. She has liver failure with ammonia over 109. No alcohol smelled on her breath. She has a bluishish hue. She is hypotensive. She is still able to swallow. NO NG due to possible varices. No overt evidence of DTs. Her potassium is critically low possible due to N/V and diarrhea from lactulose. Critical care time 45 minutes Home Medications Medication Instructions Recorded Confirmed Type Rifaximin [Xifaxan] 550 mg PO BID #60 tablet 01/05/17 02/04/17 Rx hydrOXYzine HCL TAB [Atarax Tab] 25 mg PO Q6H PRN #30 tablet 01/05/17 02/04/17 Rx Albuterol Inhaler [Proventil 2 puff INH Q4H PRN 01/09/17 02/04/17 History Inhaler] Folic Acid Tab 1 mg PO QAM 01/09/17 02/04/17 History Lactulose Liquid [Chronulac] 20 gm PO BID 01/09/17 02/04/17 History Pantoprazole Tab [Protonix Tab] 40 mg PO QAM 01/09/17 02/04/17 History Furosemide Tab [Lasix Tab] 40 mg PO BID #60 tablet 01/15/17 02/04/17 Rx HYDROcodone/ACETAMIN 5-325 [[place] 1 tablet PO Q4H PRN #20 tablet 01/15/17 Rx 5-325] Ibuprofen Tab [Motrin Tab] 600 mg PO Q6H PRN #0 tablet 01/15/17 02/04/17 Rx Levofloxacin Tab [Levaquin Tab] 500 mg PO DAILY #10 tablet 01/15/17 02/04/17 Rx Potassium Chloride 10 meq PO DAILY #20 capsule 01/15/17 02/04/17 Rx metOLazone [Zaroxolyn] 5 mg PO BID #60 tablet 01/15/17 02/04/17 Rx Allergies Allergy/AdvReac Type Severity Reaction Status Date / Time No Known Allergies Allergy Verified 02/04/17 12:37 Medical,Surgical,& Family Hx - Medical History Cardio: History of: Hypertension No history of: Cardiovascular Problems Psychological: History of: Psychiatric/Substance Abuse Tx No history of: Anxiety Disorders, ADHD, Behavior Problems, Bipolar Disorder, Depression, Previous Suicide Attempt, Schizophrenia, Violent Behavior, Psychiatric Problems HEENT: History of: Eye Problem Endocrine: History of: Diabetes Mellitus (IDDM) Respiratory: History of: Asthma, Bronchitis, Pneumonia Gastrointestinal: History of: Liver Problems Musculoskeletal: No history of: Amputation Hematology: History of: Anemia - Surgical History Cardiac Surgeries: Patient Denies: Cardiac Catheterization Thoracic Surgeries: Patient denies;: Organ Transplant Neurologic Surgeries: Patient denies: Neurologic Surgery HEENT Surgeries: Patient denies: Eye Surgery, Thyroid Surgery Abdominal Surgeries: Surgical HX of: Cholecystectomy, Colonoscopy Patient denies: Abdominal Surgery, Hernia Repair Reproductive Surgeries: Patient denies;: Genitourinary Surgery, Gynecologic Surgery - Family History Family History: Reports;: Family Cancer (mom, dad), Family Diabetes (SISTER), Family Hypertension (mom, dad) Denies;: Family Psychiatric Problems - Social History Smoking Status: Current some day smoker Frequency of Alcohol Use: Occasionally Type of Drug Use: None Marital Status: Single Lives With:: Alone Functional capacity: independent ambulation ROS unobtainable: due to delirium, due to encephalopathy Exam - Constitutional Vitals: Period Temp Pulse Resp BP Sys/Grajeda Pulse Ox Last 24 Hr 97.6 F 68 20 82/36 100-100 General appearance: normal weight, mild distress - Head Head exam: Present: normal inspection, normocephalic - Eye Eye exam: Present: EOMI, scleral icterus Pupils: Present: JORDAN, normal accommodation - ENT ENT exam: Present: normal exam, normal external ear exam - Neck Neck exam: Absent: lymphadenopathy, thyromegaly - Respiratory Respiratory exam: Present: clear to auscultation bilaterally, decreased breath sounds. Absent: rales, rhonchi, wheezes - Cardiovascular Cardiovascular exam: Present: tachycardia. Absent: systolic murmur - GI/Abdominal GI/Abdominal exam: Present: normal bowel sounds, soft. Absent: tenderness - Extremities Exam Extremities exam: Present: normal capillary refill. Absent: edema - Neurological Exam Neurological exam: Present: altered, motor sensory deficit (extremely weak) - Psychiatric Psychiatric exam: Present: depressed, flat affect - Skin Skin exam: Present: other (bluish hue ) Results - Labs CBC & BMP: 02/04/17 13:26 02/04/17 13:26 Lab Results: I have reviewed the past 24 hour labs - Diagnostic Findings Procedure: Chest x-ray: report reviewed by me (chronic copd ), CT: report reviewed by me (head no abnormalities )
[2017-02-04 15:28] LABS: Macrocytosis Slight; Platelet Estimate Decreased
[2017-02-04] MEDS ORDERED: NOREPINEPHRINE 4 MG/4 ML VIAL IV ONE (15:59)
[2017-02-04] MEDS: NOREPINEPHRINE 8 MG in SODIUM CHLORIDE 0.9% 242 ML IV SCH (16:05)
[2017-02-04] MEDS ORDERED: ONDANSETRON 4 MG/2 ML VIAL IV PRN (16:22)
[2017-02-04] MEDS ORDERED: MAGNESIUM SULF RIDER 2 GM in PREMIX 1 EACH IV STA (16:22)
[2017-02-04] MEDS ORDERED: LORazepam 2 MG/1 ML VIAL IV PRN (16:22)
[2017-02-04] MEDS ORDERED: ALBUTEROL 2.5 MG/3 ML NEB RESP TX PRN (16:22)
[2017-02-04 16:52] LABS: ABG Base Excess 3.2 MMOL/L (-2.5-2.5); ABG HCO3 27.3 MMOL/L (20-26); ABG Oxygen Saturation 98.1 % (95-100); ABG PCO2 32.8 MM HG (35-48); ABG PH 7.506 (7.35-7.45)
[2017-02-04] MEDS: POTASSIUM CHLORIDE 20 MEQ TABLET PO SCH ×3 (17:14→22:08)
[2017-02-04] MEDS: THIAMINE 200 MG/2 ML VIAL IV SCH (17:17)
[2017-02-04] MEDS: FAMOTIDINE 20 MG/2 ML VIAL IV SCH (17:17)
[2017-02-04 17:42] LABS: Magnesium 3.3 MG/DL (1.8-2.4)
[2017-02-04 17:48] LABS: Lactic Acid 1.9 MMOL/L (0.4-2.0)
[2017-02-04 17:56] LABS: Thyroid Stimulating Hormone 1.15 uIU/ml (0.358-3.74)
[2017-02-04] MEDS: MEROPENEM 1,000 MG in SODIUM CHLORIDE 0.9% 100 ML IV SCH (17:59)
[2017-02-04 18:00] LABS: Potassium 2.1 MMOL/L (3.5-5.1)
[2017-02-04] MEDS: RIFAXIMIN 550 MG TABLET PO SCH (22:08)
[2017-02-05 03:23] LABS: Basophils % 0.5 % (0.0-0.8); Eosinophils # 0.1 10*3/uL (0.0-0.87); Eosinophils % 2.3 % (0.00-10.9); Hematocrit 30.4 VOL% (35.7-47.0); Hemoglobin 11.3 GM/DL (12.0-16.0); Immature Granulocytes % 0.5 %; Immature Granulocytes Absolute 0.03 #; Lymphocytes # 1.9 10*3/uL (1.4-4.0); Lymphocytes % 31.2 % (21.3-54.2); Mean Corpuscular HGB Conc 37.2 GM/DL (32-36); Mean Corpuscular Hemoglobin 38 PG (27-34); Mean Platelet Volume 10.3 FL (9.6-12.0); Monocytes % 16.5 % (1.7-12.7); Platelet Count 113 T/CUMM (130-400); Red Blood Count 3.01 MC/CUMM (3.8-5.5); Red Cell Distribution Width 13.8 % (9.3-17.3); White Blood Count 6.2 T/CUMM (4-12)
[2017-02-05 03:55] LABS: Albumin 1.6 G/DL (3.4-5.0); Bilirubin,Total 7.7 MG/DL (0.2-1.0); Calcium 7.9 MG/DL (8.5-10.1); Osmolality,Calculated 286.8 MOS/KG (273-304); Potassium 3.1 MMOL/L (3.5-5.1); Risk Ratio 12.08; Total Protein 6.7 G/DL (6.4-8.3); VLDL CHOLESTEROL 19.4 MG/DL
[2017-02-05] MEDS: FAMOTIDINE 20 MG/2 ML VIAL IV SCH ×2 (04:40→16:14)
[2017-02-05] MEDS: MEROPENEM 1,000 MG in SODIUM CHLORIDE 0.9% 100 ML IV SCH ×2 (04:45→16:40)
[2017-02-05 05:09] LABS: Eosinophils 2 % (0-10); Lymphocytes 31 % (20-55); Platelet Estimate Adequate; Segmented Neutrophils 59 % (50-85); Total Cells Counted 100
[2017-02-05] MEDS: THIAMINE 200 MG/2 ML VIAL IV SCH (08:58)
[2017-02-05] MEDS: FOLIC ACID 1 MG TABLET PO SCH (09:00)
[2017-02-05] MEDS: RIFAXIMIN 550 MG TABLET PO SCH ×2 (09:01→20:19)
[2017-02-05] MEDS: POTASSIUM CHLORIDE RIDER 10 MEQ in PREMIX 1 EACH IV PRN ×7 (10:26→23:07)
--- NOTE | 2017-02-05 10:44 | Hospitalist Progress Note ---
Assessment and Plan (1) Acute hepatic encephalopathy Status: Acute Assessment and plan: Potassium is better but still low Will start lactulose this afternoon Current Visit: No (2) Alcoholic cirrhosis Status: Acute Current Visit: No Qualifiers: Ascites presence: without ascites Qualified Code(s): K70.30 - Alcoholic cirrhosis of liver without ascites (3) Alcoholic hepatitis Status: Acute Current Visit: No (4) Anemia Status: Acute Assessment and plan: Continue to monitor Current Visit: No Qualifiers: Anemia type: other cause Other causes of anemia: chronic disease, other Qualified Code(s): D63.8 - Anemia in other chronic diseases classified elsewhere (5) Hypokalemia Status: Acute Assessment and plan: K 3.2 today, continue with replacement Current Visit: No (6) Hypotension Status: Acute Assessment and plan: Continue levophed Continue merrem, no source of infection yet identified Current Visit: Yes (7) Hyponatremia Status: Acute Assessment and plan: Resolved Continue to monitor Current Visit: Yes Hospitalist: Subjective Interval history: No acute events overnight. Patient awake and oriented x3. Still requiring levophed. Exam - Constitutional Vitals: Period Temp Pulse Resp BP Sys/Grajeda Pulse Ox Last 24 Hr 97.2 F-98.7 F 63-82 11-25 74-110/25-72 92-100 General appearance: over weight - Head Head exam: Present: normocephalic, atraumatic - Eye Eye exam: Present: EOMI Pupils: Present: JORDAN - ENT ENT exam: Present: normal exam - Neck Neck exam: Present: normal inspection - Respiratory Respiratory exam: Present: clear to auscultation bilaterally. Absent: rhonchi, wheezes - Cardiovascular Cardiovascular exam: Present: regular rate and rhythm - GI/Abdominal GI/Abdominal exam: Present: normal bowel sounds, soft. Absent: tenderness, rebound - Extremities Exam Extremities exam: Present: normal inspection - Back Exam Back exam: Present: normal inspection - Neurological Exam Neurological exam: Present: alert, oriented X3 - Psychiatric Psychiatric exam: Present: normal affect, normal mood - Skin Skin exam: Present: warm, intact Results - Labs CBC & BMP: 02/05/17 02:29 02/05/17 02:31
[2017-02-05] MEDS: POTASSIUM CHLORIDE 20 MEQ PACK PO SCH ×2 (11:17→20:21)
[2017-02-05] MEDS: NOREPINEPHRINE 8 MG in SODIUM CHLORIDE 0.9% 242 ML IV SCH ×2 (12:08→16:09)
[2017-02-05] MEDS: LACTULOSE 20 GM/30 ML UDCUP PO SCH ×2 (15:17→20:19)
--- NOTE | 2017-02-05 17:34 | ECHO Report ---
Lauren Jhaveri Exam Date: 02/05/2017 07:28 Referring Physician: Technologist: Cayla Rubi Age: 51 Ht (in): 65 Wt (lb): 180 Gender: F Exam Location: [facility] ([place] Echo Indications: hypotension, hypokalemia, anemia, hyponatremia, alcholic hepatitis, acute hepatic encephalopathy, alcoholic cirrhosis, SOB BP: 88 / 36 HR: 73 Rhythm: Sinus Technical Quality: average IMPRESSIONS Left ventricular ejection fraction is estimated at 55 %. There is grade 1 diastolic dysfunction impaired relaxation. Tricuspid regurgitation velocities suggest a RVSP of 13 mmHg + RAP. MEASUREMENTS (Male / Female) Normal Values 2D ECHO LV Diastolic Diameter PLAX 4.0 cm 4.2 - 5.9 / 3.9 - 5.3 cm LV Systolic Diameter PLAX 2.8 cm LV Fractional Shortening PLAX 30.6 % IVS Diastolic Thickness 0.9 cm 0.6 - 1.0 / 0.6 - 0.9 cm LVPW Diastolic Thickness 0.9 cm 0.6 - 1.0 / 0.6 - 0.9 cm Aortic Root Diameter 2.4 cm LA Systolic Diameter LX 2.9 cm 3.0 - 4.0 / 2.7 - 3.8 cm DOPPLER TR Peak Velocity 183.0 cm/s TR Peak Gradient 13.4 mmHg FINDINGS Left Ventricle Normal left ventricular cavity size. Left ventricular ejection fraction is estimated at 55 %. There is grade 1 diastolic dysfunction impaired relaxation. No RWMA Right Ventricle Normal right ventricular size. Right Atrium Normal right atrial size. Left Atrium Normal left atrial size. Mitral Valve Trace mitral regurgitation. Aortic Valve The aortic valve is trileaflet and has normal motion. Tricuspid Valve Morphologically normal tricuspid valve. Mild tricuspid valve regurgitation. Tricuspid regurgitation velocities suggest a RVSP of 13 mmHg + RAP. Pulmonic Valve Pulmonic valve not well visualized. Pericardium No pericardial effusion. Aorta Normal size aortic root and proximal ascending aorta. Smiley Scanlon (Electronically Signed) Final Date: 05 February 2017 17:33
[2017-02-06] MEDS: POTASSIUM CHLORIDE RIDER 10 MEQ in PREMIX 1 EACH IV PRN ×9 (00:20→20:35)
[2017-02-06] MEDS: FAMOTIDINE 20 MG/2 ML VIAL IV SCH ×2 (04:25→16:16)
[2017-02-06] MEDS: MEROPENEM 1,000 MG in SODIUM CHLORIDE 0.9% 100 ML IV SCH ×2 (04:30→17:08)
[2017-02-06 05:28] LABS: Basophils % 0.7 % (0.0-0.8); Eosinophils # 0.1 10*3/uL (0.0-0.87); Eosinophils % 3.4 % (0.00-10.9); Hematocrit 27.3 VOL% (35.7-47.0); Hemoglobin 9.9 GM/DL (12.0-16.0); Immature Granulocytes % 0.5 %; Immature Granulocytes Absolute 0.02 #; Lymphocytes # 1.8 10*3/uL (1.4-4.0); Lymphocytes % 42.8 % (21.3-54.2); Mean Corpuscular HGB Conc 36.3 GM/DL (32-36); Mean Corpuscular Hemoglobin 37 PG (27-34); Mean Corpuscular Volume 102.6 FL (87-102); Mean Platelet Volume 9.7 FL (9.6-12.0); Monocytes # 0.7 10*3/uL (0.11-0.8); Monocytes % 16.3 % (1.7-12.7); Neutrophils # 1.5 10*3/uL (1.4-7.4); Neutrophils % 36.3 % (38.7-73.9); Platelet Count 75 T/CUMM (130-400); Red Blood Count 2.66 MC/CUMM (3.8-5.5); White Blood Count 4.1 T/CUMM (4-12)
[2017-02-06 06:04] LABS: Eosinophils 3 % (0-10); Giant Platelets Few; Hypochromasia 1+; Lymphocytes 34 % (20-55); Platelet Estimate Decreased; Segmented Neutrophils 51 % (50-85); Total Cells Counted 100
[2017-02-06 06:05] LABS: Burr Cells Slight; Ovalocytes Slight
[2017-02-06 06:12] LABS: Albumin 1.4 G/DL (3.4-5.0); Bilirubin,Total 6.7 MG/DL (0.2-1.0); Calcium 7.6 MG/DL (8.5-10.1); Osmolality,Calculated 269.5 MOS/KG (273-304); Total Protein 6.2 G/DL (6.4-8.3)
[2017-02-06] MEDS: POTASSIUM CHLORIDE 20 MEQ PACK PO SCH ×3 (09:52→20:47)
[2017-02-06] MEDS: LACTULOSE 20 GM/30 ML UDCUP PO SCH ×3 (09:52→20:47)
[2017-02-06] MEDS: THIAMINE 200 MG/2 ML VIAL IV SCH (09:53)
[2017-02-06] MEDS: FOLIC ACID 1 MG TABLET PO SCH (09:53)
[2017-02-06] MEDS: RIFAXIMIN 550 MG TABLET PO SCH ×2 (10:02→20:47)
--- NOTE | 2017-02-06 11:39 | Hospitalist Progress Note ---
Assessment and Plan (1) Acute hepatic encephalopathy Status: Acute Assessment and plan: Potassium is better but still low Continue lactulose Current Visit: No (2) Alcoholic cirrhosis Status: Acute Current Visit: No Qualifiers: Ascites presence: without ascites Qualified Code(s): K70.30 - Alcoholic cirrhosis of liver without ascites (3) Alcoholic hepatitis Status: Acute Current Visit: No (4) Anemia Status: Acute Assessment and plan: Continue to monitor Current Visit: No Qualifiers: Anemia type: other cause Other causes of anemia: chronic disease, other Qualified Code(s): D63.8 - Anemia in other chronic diseases classified elsewhere (5) Hypokalemia Status: Acute Assessment and plan: Continue with replacement Increase po K Current Visit: No (6) Hypotension Status: Acute Assessment and plan: No longer requiring levophed Continue merrem, no source of infection yet identified Current Visit: Yes (7) Hyponatremia Status: Acute Assessment and plan: Resolved Continue to monitor Current Visit: Yes Hospitalist: Subjective Interval history: No acute events overnight. Patient oriented x3 today. Reports that she is hungry. She is off pressors. Patient continues to require aggressive replacement of potassium while also requiring lactulose, will maintain in the ICU today. Exam - Constitutional Vitals: Period Temp Pulse Resp BP Sys/Grajeda Pulse Ox Last 24 Hr 98.3 F-99.1 F 65-90 10-20 71-111/30-63 93-100 General appearance: over weight - Head Head exam: Present: normocephalic, atraumatic - Eye Eye exam: Present: EOMI Pupils: Present: JORDAN - ENT ENT exam: Present: normal exam - Neck Neck exam: Present: normal inspection - Respiratory Respiratory exam: Present: clear to auscultation bilaterally. Absent: wheezes - Cardiovascular Cardiovascular exam: Present: regular rate and rhythm - GI/Abdominal GI/Abdominal exam: Present: normal bowel sounds, soft. Absent: tenderness, rebound - Extremities Exam Extremities exam: Present: normal inspection - Back Exam Back exam: Present: normal inspection - Neurological Exam Neurological exam: Present: alert, oriented X3 - Psychiatric Psychiatric exam: Present: normal affect, normal mood - Skin Skin exam: Present: warm, intact Results - Labs CBC & BMP: 02/06/17 05:12 02/06/17 05:12
[2017-02-07] MEDS: FAMOTIDINE 20 MG/2 ML VIAL IV SCH ×2 (05:00→17:26)
[2017-02-07] MEDS: MEROPENEM 1,000 MG in SODIUM CHLORIDE 0.9% 100 ML IV SCH ×2 (05:05→17:26)
[2017-02-07 05:22] LABS: Basophils % 0.2 % (0.0-0.8); Eosinophils # 0.1 10*3/uL (0.0-0.87); Eosinophils % 2.3 % (0.00-10.9); Hematocrit 27.7 VOL% (35.7-47.0); Hemoglobin 9.9 GM/DL (12.0-16.0); Immature Granulocytes % 0.6 %; Immature Granulocytes Absolute 0.03 #; Lymphocytes # 1.4 10*3/uL (1.4-4.0); Lymphocytes % 29.5 % (21.3-54.2); Mean Corpuscular HGB Conc 35.7 GM/DL (32-36); Mean Corpuscular Hemoglobin 38 PG (27-34); Mean Corpuscular Volume 104.9 FL (87-102); Mean Platelet Volume 10.3 FL (9.6-12.0); Monocytes # 0.7 10*3/uL (0.11-0.8); Monocytes % 14.3 % (1.7-12.7); Neutrophils # 2.6 10*3/uL (1.4-7.4); Neutrophils % 53.1 % (38.7-73.9); Platelet Count 75 T/CUMM (130-400); Red Blood Count 2.64 MC/CUMM (3.8-5.5); Red Cell Distribution Width 14.2 % (9.3-17.3); White Blood Count 4.8 T/CUMM (4-12)
[2017-02-07 05:43] LABS: Albumin 1.5 G/DL (3.4-5.0); Band Neutrophils 1 % (0-10); Bilirubin,Total 6.5 MG/DL (0.2-1.0); Calcium 7.8 MG/DL (8.5-10.1); Eosinophils 2 % (0-10); Giant Platelets Few; Hypochromasia Slight; Lymphocytes 21 % (20-55); Osmolality,Calculated 270.2 MOS/KG (273-304); Platelet Estimate Decreased; Potassium 3.5 MMOL/L (3.5-5.1); Segmented Neutrophils 66 % (50-85); Total Cells Counted 100; Total Protein 6.3 G/DL (6.4-8.3)
[2017-02-07] MEDS: RIFAXIMIN 550 MG TABLET PO SCH ×2 (08:18→20:44)
[2017-02-07] MEDS: FOLIC ACID 1 MG TABLET PO SCH (08:18)
[2017-02-07] MEDS: LACTULOSE 20 GM/30 ML UDCUP PO SCH ×3 (08:19→20:45)
[2017-02-07] MEDS: THIAMINE 200 MG/2 ML VIAL IV SCH (08:19)
[2017-02-07] MEDS: POTASSIUM CHLORIDE 20 MEQ PACK PO SCH ×3 (08:19→20:44)
[2017-02-07] MEDS: POTASSIUM CHLORIDE RIDER 10 MEQ in PREMIX 1 EACH IV PRN ×3 (08:20→13:19)
[2017-02-07 08:41] LABS: Folate > 24.0 NG/ML (5.4-24.0); Vitamin B12 > 2000 PG/ML (211-911)
--- NOTE | 2017-02-07 09:22 | Hospitalist Progress Note ---
Assessment and Plan (1) Acute hepatic encephalopathy Status: Acute Assessment and plan: Potassium is better Continue lactulose Ammonia improving Clinically improving Current Visit: No (2) Alcoholic cirrhosis Status: Acute Current Visit: No Qualifiers: Ascites presence: without ascites Qualified Code(s): K70.30 - Alcoholic cirrhosis of liver without ascites (3) Alcoholic hepatitis Status: Acute Current Visit: No (4) Anemia Status: Acute Assessment and plan: Continue to monitor Current Visit: No Qualifiers: Anemia type: other cause Other causes of anemia: chronic disease, other Qualified Code(s): D63.8 - Anemia in other chronic diseases classified elsewhere (5) Hypokalemia Status: Acute Assessment and plan: Continue with replacement Has scheduled PO K replacement Also with potassium protocol Current Visit: No (6) Hypotension Status: Acute Assessment and plan: No longer requiring levophed Continue merrem, no source of infection yet identified Current Visit: Yes (7) Hyponatremia Status: Acute Assessment and plan: Resolved Continue to monitor Current Visit: Yes Hospitalist: Subjective Interval history: No acute events overnight. Patient is oriented and ammonia is trending down. Potassium is improved. Will transfer to the floor today. Exam - Constitutional Vitals: Period Temp Pulse Resp BP Sys/Grajeda Pulse Ox Last 24 Hr 97.6 F-99.1 F 57-90 11-22 73-112/36-64 94-99 General appearance: over weight - Head Head exam: Present: normocephalic, atraumatic - Eye Eye exam: Present: EOMI Pupils: Present: JORDAN - ENT ENT exam: Present: normal exam - Neck Neck exam: Present: normal inspection - Respiratory Respiratory exam: Present: clear to auscultation bilaterally. Absent: rhonchi, wheezes - Cardiovascular Cardiovascular exam: Present: regular rate and rhythm - GI/Abdominal GI/Abdominal exam: Present: normal bowel sounds, soft. Absent: tenderness, rebound - Extremities Exam Extremities exam: Present: normal inspection - Back Exam Back exam: Present: normal inspection - Neurological Exam Neurological exam: Present: alert, oriented X3 - Psychiatric Psychiatric exam: Present: normal affect, normal mood - Skin Skin exam: Present: warm, intact Results - Labs CBC & BMP: 02/07/17 05:00 02/07/17 05:00
[2017-02-08] MEDS: FAMOTIDINE 20 MG/2 ML VIAL IV SCH ×2 (04:43→16:47)
[2017-02-08] MEDS: MEROPENEM 1,000 MG in SODIUM CHLORIDE 0.9% 100 ML IV SCH (04:43)
[2017-02-08 06:07] LABS: Basophils % 0.2 % (0.0-0.8); Eosinophils # 0.1 10*3/uL (0.0-0.87); Eosinophils % 2.4 % (0.00-10.9); Hematocrit 26.8 VOL% (35.7-47.0); Hemoglobin 9.7 GM/DL (12.0-16.0); Immature Granulocytes % 0.4 %; Immature Granulocytes Absolute 0.02 #; Lymphocytes # 1.3 10*3/uL (1.4-4.0); Lymphocytes % 28.1 % (21.3-54.2); Mean Corpuscular HGB Conc 36.2 GM/DL (32-36); Mean Corpuscular Hemoglobin 38 PG (27-34); Mean Corpuscular Volume 105.9 FL (87-102); Mean Platelet Volume 10.1 FL (9.6-12.0); Monocytes # 0.5 10*3/uL (0.11-0.8); Monocytes % 11.6 % (1.7-12.7); Neutrophils # 2.6 10*3/uL (1.4-7.4); Neutrophils % 57.3 % (38.7-73.9); Red Blood Count 2.53 MC/CUMM (3.8-5.5); Red Cell Distribution Width 14.2 % (9.3-17.3); White Blood Count 4.6 T/CUMM (4-12)
[2017-02-08 06:09] LABS: Platelet Count 63 T/CUMM (130-400)
[2017-02-08 06:49] LABS: Albumin 1.4 G/DL (3.4-5.0); Bilirubin,Total 6.2 MG/DL (0.2-1.0); Calcium 7.9 MG/DL (8.5-10.1); Potassium 3.7 MMOL/L (3.5-5.1); Total Protein 5.9 G/DL (6.4-8.3)
[2017-02-08 06:52] LABS: Hypochromasia 1+
[2017-02-08] MEDS: POTASSIUM CHLORIDE 20 MEQ PACK PO SCH ×3 (08:53→20:06)
[2017-02-08] MEDS: RIFAXIMIN 550 MG TABLET PO SCH ×2 (08:53→20:07)
[2017-02-08] MEDS: FOLIC ACID 1 MG TABLET PO SCH (08:53)
[2017-02-08] MEDS: LACTULOSE 20 GM/30 ML UDCUP PO SCH ×3 (08:53→20:07)
[2017-02-08] MEDS: THIAMINE 200 MG/2 ML VIAL IV SCH (08:53)
[2017-02-08] MEDS: POTASSIUM CHLORIDE RIDER 10 MEQ in PREMIX 1 EACH IV PRN (08:54)
[2017-02-08] MEDS: MEROPENEM 1,000 MG in SODIUM CHLORIDE 0.9% 50 ML IV SCH (16:48)
--- NOTE | 2017-02-08 17:26 | Hospitalist Progress Note ---
Assessment and Plan (1) Acute hepatic encephalopathy Status: Acute Assessment and plan: Patient is back to baseline, dc soon. Current Visit: No (2) Liver cirrhosis, alcoholic Status: Acute Assessment and plan: continue to monitor labs Current Visit: No (3) Hypokalemia Status: Acute Assessment and plan: much improved Current Visit: Yes (4) Hyponatremia Status: Acute Assessment and plan: improved Current Visit: Yes (5) Hypotension Status: Acute Assessment and plan: fairly stable Current Visit: Yes Hospitalist: Subjective Interval history: Patient seen, she had no new complaints. Exam - Constitutional Vitals: Period Temp Pulse Resp BP Sys/Grajeda Pulse Ox Last 24 Hr 97.6 F-98.8 F 77-98 18-20 88-110/40-66 95-100 General appearance: no acute distress - Head Head exam: Present: normal inspection - Neck Neck exam: Present: normal inspection - Respiratory Respiratory exam: Present: clear to auscultation bilaterally - Cardiovascular Cardiovascular exam: Present: regular rate and rhythm - GI/Abdominal GI/Abdominal exam: Present: normal bowel sounds - Extremities Exam Extremities exam: Present: normal inspection Results - Labs CBC & BMP: 02/08/17 04:29 02/08/17 04:30 Lab Results: I have reviewed the past 24 hour labs
[2017-02-09] MEDS: FAMOTIDINE 20 MG/2 ML VIAL IV SCH (04:42)
[2017-02-09] MEDS: MEROPENEM 1,000 MG in SODIUM CHLORIDE 0.9% 50 ML IV SCH (04:43)
[2017-02-09 05:45] LABS: Basophils % 0.4 % (0.0-0.8); Eosinophils # 0.1 10*3/uL (0.0-0.87); Eosinophils % 2.7 % (0.00-10.9); Hematocrit 27.6 VOL% (35.7-47.0); Hemoglobin 9.9 GM/DL (12.0-16.0); Immature Granulocytes % 0.6 %; Immature Granulocytes Absolute 0.03 #; Lymphocytes # 1.7 10*3/uL (1.4-4.0); Lymphocytes % 32.9 % (21.3-54.2); Mean Corpuscular HGB Conc 35.9 GM/DL (32-36); Mean Corpuscular Hemoglobin 38 PG (27-34); Mean Corpuscular Volume 105.3 FL (87-102); Mean Platelet Volume 10.5 FL (9.6-12.0); Monocytes # 0.5 10*3/uL (0.11-0.8); Monocytes % 10.6 % (1.7-12.7); Neutrophils # 2.7 10*3/uL (1.4-7.4); Neutrophils % 52.8 % (38.7-73.9); Red Blood Count 2.62 MC/CUMM (3.8-5.5); Red Cell Distribution Width 14.3 % (9.3-17.3); White Blood Count 5.1 T/CUMM (4-12)
[2017-02-09 05:46] LABS: Platelet Count 68 T/CUMM (130-400)
[2017-02-09 06:13] LABS: Albumin 1.3 G/DL (3.4-5.0); Bilirubin,Total 5.6 MG/DL (0.2-1.0); Osmolality,Calculated 268.1 MOS/KG (273-304); Potassium 4.3 MMOL/L (3.5-5.1); Total Protein 5.8 G/DL (6.4-8.3)
[2017-02-09 07:08] LABS: Macrocytosis Slight
[2017-02-09 07:09] LABS: Platelet Estimate Decreased
[2017-02-09] MEDS: THIAMINE 200 MG/2 ML VIAL IV SCH (08:51)
[2017-02-09] MEDS: FOLIC ACID 1 MG TABLET PO SCH (08:51)
[2017-02-09] MEDS: RIFAXIMIN 550 MG TABLET PO SCH (08:51)
[2017-02-09] MEDS: POTASSIUM CHLORIDE 20 MEQ PACK PO SCH (08:51)
[2017-02-09] MEDS: LACTULOSE 20 GM/30 ML UDCUP PO SCH (09:41)
--- NOTE | 2017-02-09 10:55 | Discharge Summary ---
<Alina Henderson - Last Filed: 02/09/17 10:51> Hospital Course - Hospital Course Hospital Course: 51-year-old [place] female with history of alcoholic hepatitis, COPD, and hypertension admitted by the hospitalist service on 02/04/2017 from the emergency room with acute hepatic encephalopathy due to alcoholic cirrhosis, hypotension, hyponatremia, and hypokalemia. Her head CT was normal. Echocardiogram showed an EF of 55% with grade 1 diastolic dysfunction and tricuspid regurgitation. Her potassium was corrected and then lactulose was started. Patient does have chronic liver cirrhosis but her numbers have improved mildly. Her hypokalemia, hyponatremia, and hypotension have improved. Her mental status is back to baseline. She has reached maximal hospital benefit and will be discharged home. Care coordination, chart review, and completed discharge paperwork took approximately 35 minutes. - Time spent with patient Time with patient DS: Greater than 30 minutes Diagnosis - Discharge Diagnosis (1) History of alcoholism Status: Chronic (2) Acute hepatic encephalopathy Status: Resolved (3) Alcoholic cirrhosis Status: Chronic (4) Alcoholic hepatitis Status: Chronic (5) Anemia Status: Chronic (6) Hypokalemia Status: Resolved (7) Hypotension Status: Acute (8) Hyponatremia Status: Resolved Specialty Discharge - Follow Up or Referrals Follow up with: [facility] [Provider Group] - 2 Weeks Discharge Plan - Discharge Data Disposition: Disch To Home/Self Care Condition at Discharge: Stable Discharge Diet: advance to your usual diet Activity: resume usual activities as tolerated Driving: not until seen by doctor Contact your physician if you experience:: fever over 101 - Discharge Medications New Lactulose Liquid [Chronulac] 20 gm PO TID #1 Continue hydrOXYzine HCL TAB [Atarax Tab] 25 mg PO Q6H PRN #30 tablet PRN Reason: Itching Rifaximin [Xifaxan] 550 mg PO BID #60 tablet Albuterol Inhaler [Proventil Inhaler] 2 puff INH Q4H PRN PRN Reason: Shortness Of Breath/Wheezing Folic Acid Tab 1 mg PO QAM Pantoprazole Tab [Protonix Tab] 40 mg PO QAM Furosemide Tab [Lasix Tab] 40 mg PO BID #60 tablet Ibuprofen Tab [Motrin Tab] 600 mg PO Q6H PRN #0 tablet PRN Reason: Fever, Headache, Mild Pain Levofloxacin Tab [Levaquin Tab] 500 mg PO DAILY #10 tablet Potassium Chloride 10 meq PO DAILY #20 capsule HYDROcodone/ACETAMIN 5-325 [[place] 5-325] 1 tablet PO Q4H PRN #20 tablet PRN Reason: Pain Moderate (4-7) metOLazone [Zaroxolyn] 5 mg PO BID #60 tablet Discontinued Lactulose Liquid [Chronulac] 20 gm PO BID - Follow Up or Referral Follow Up: [facility] [Provider Group] - 2 Weeks - Forms/Instructions Instructions: Cirrhosis (DC) Exam - Constitutional Vitals: Period Temp Pulse Resp BP Sys/Grajeda Pulse Ox Last 24 Hr 97.6 F-98.4 F 81-98 16-20 87-105/42-55 96-100 Exam: 51-year-old [place] female, no acute distress, back to mental baseline Chest clear CV regular rate and rhythm Abdomen soft and nontender Extremities no edema Discharge Results Procedures and tests throughout hospitalization: Pending Orders 02/04/17 13:26 Blood Culture Stat Labs on day of discharge: Labs from last 24 hours 02/09/17 02/09/17 05:06 05:06 WBC 5.1 RBC 2.62 L Hgb 9.9 L Hct 27.6 L MCV 105.3 H MCH 38 H MCHC 35.9 RDW 14.3 Plt Count 68 L MPV 10.5 Neut % (Auto) 52.8 Lymph % (Auto) 32.9 [place] % (Auto) 10.6 Eos % (Auto) 2.7 Baso % (Auto) 0.4 Neut # (Auto) 2.7 Lymph # (Auto) 1.7 [place] # (Auto) 0.5 Eos # (Auto) 0.1 Baso # (Auto) 0.0 Immature Gran % 0.6 Nucleated RBC % 0.0 Immature Gran # 0.03 Nucleated RBCs # 0.00 Platelet Estimate Decreased Immature Plt Fraction 2.5 Macrocytosis Slight Morphology Comment Sodium 135 L Potassium 4.3 Chloride 109 H Carbon Dioxide 18 L Anion Gap 12.3 BUN 12 Creatinine 0.80 GFR Calculation 99 BUN/Creatinine Ratio 15.00 Glucose 73 L Calculated Osmolality 268.1 L Calcium 8.0 L Total Bilirubin 5.60 H AST 245 H ALT 67 H Alkaline Phosphatase 350 H Total Protein 5.8 L Albumin 1.3 L Globulin 4.5 H Albumin/Globulin Ratio 0.2 L Preliminary micro results at discharge 02/04/17 13:26 Blood Culture - Preliminary Blood No growth at 3 days 02/04/17 13:26 Blood Culture - Preliminary Blood No growth at 3 days DS: Provider Date of admission: 02/04/17 15:14 Primary care physician: Dinesh Clayton MD Attending physician on admission: Mora Govea MD Consults: 02/04/17 17:04 Consult to Pastoral Services [CONS] Routine Comment: Pastoral Screen: Request [employer]pper Visit Pastoral Screen Source of Request: Patient 02/06/17 11:53 Consult to Occupational Therapy [CONS] Routine Reason for Occupational Therapy: Evaluate and Treat Consult to Physical Therapy [CONS] Routine Reason for Physical Therapy: Evaluate and Treat 02/06/17 13:39 Consult to Case Mgmt/Social Srvs [CONS] Routine Reason for Case Mgmt/Social Srvs: Rehab Consult Comment: [facility] Discharging clinician: ELVIN Pappas Expected date of discharge: 02/09/17 <Renetta Vale - Last Filed: 02/09/17 11:51> Hospital Course - Time spent with patient Time with patient DS: Greater than 30 minutes Diagnosis - Discharge Diagnosis (1) Acute hepatic encephalopathy Status: Resolved (2) Liver cirrhosis, alcoholic Status: Acute (3) Hypokalemia Status: Acute (4) Hyponatremia Status: Resolved (5) Hypotension Status: Acute Exam - Constitutional General appearance: no acute distress - Head Head exam: Present: normal inspection, other (jaundiced) - Respiratory Respiratory exam: Present: clear to auscultation bilaterally - GI/Abdominal GI/Abdominal exam: Present: normal bowel sounds - Extremities Exam Extremities exam: Present: normal inspection - Neurological Exam Neurological exam: Present: alert, oriented X3
[2017-02-09 11:47] VITALS: BP 100/55
== END 2017-02-09 13:00 | disposition home or self-care (01) | DRG 280 ==
LOC: EDBD → EDUNIT# → N.ED 12:28 → N.EDINP 15:14 → SUATTDRO 15:14 → N.ICU 15:31 → N.4E 02-07 10:14
PROVIDERS: ADMIT Internal Medicine; ATTEND Internal Medicine

== ENCOUNTER 2017-02-17 04:05 | Inpatient (IN) ==
[2017-02-17] MEDS ORDERED: SODIUM CHLORIDE 0.9% 1,000 ML IV STA (04:39)
--- NOTE | 2017-02-17 04:39 | Emergency Department Note ---
ITriny Mantricia, am scribing for, and in the presence of, Estee Pizarro DO 04:26. IJuarez Debra, DO, personally performed the services described in this documentation, ascribed by Demond Agosto in my presence, and it is both accurate and complete 431 . Arrival - Arrival Chief Complaint: Altered Mental Status Stated Complaint: Altered Mental Status ED Nursing Triage Note: EMS reports that family was called due to reports of altered mental status. States that patient was combative upon arrival. Family reports that patient has been in and out of hospital for liver problems and altered mental status for the past month. Hx of HTN, DM, GERD, and liver problems. Mode of Arrival: Stretcher Limitations: No Limitations Source: Family, EMS Time Seen by Provider: 02/17/17 04:10 - History of Present Illness HPI Narrative: Pt is a 51 y/o female arriving to ED by EMS with c/o AMS that onset a month ago but has worsened today. EMS reports that pt was combative upon their arrival; however, she has calmed down now. Family reports that pt has been in and out of the hospital for the past month for liver disease and AMS. Pt denies ever drinking ETOH before. She is not oriented to place and continues to ask "how do you dance" repeatedly. No other complaints were reported to ED. Onset (ago): day(s) Consistency: constant Severity: moderate Date of Last Menstrual Period: menopause Allergies/Adverse Reactions: Allergies Allergy/AdvReac Type Severity Reaction Status Date / Time No Known Allergies Allergy Verified 02/04/17 12:37 Home Medications: Home Medications Medication Instructions Recorded Confirmed Type Rifaximin [Xifaxan] 550 mg PO BID #60 tablet 01/05/17 02/04/17 Rx hydrOXYzine HCL TAB [Atarax Tab] 25 mg PO Q6H PRN #30 tablet 01/05/17 02/04/17 Rx Albuterol Inhaler [Proventil 2 puff INH Q4H PRN 01/09/17 02/04/17 History Inhaler] Folic Acid Tab 1 mg PO QAM 01/09/17 02/04/17 History Pantoprazole Tab [Protonix Tab] 40 mg PO QAM 01/09/17 02/04/17 History Furosemide Tab [Lasix Tab] 40 mg PO BID #60 tablet 01/15/17 02/04/17 Rx HYDROcodone/ACETAMIN 5-325 [[place] 1 tablet PO Q4H PRN #20 tablet 01/15/17 Rx 5-325] Ibuprofen Tab [Motrin Tab] 600 mg PO Q6H PRN #0 tablet 01/15/17 02/04/17 Rx Levofloxacin Tab [Levaquin Tab] 500 mg PO DAILY #10 tablet 01/15/17 02/04/17 Rx Potassium Chloride 10 meq PO DAILY #20 capsule 01/15/17 02/04/17 Rx metOLazone [Zaroxolyn] 5 mg PO BID #60 tablet 01/15/17 02/04/17 Rx Lactulose Liquid [Chronulac] 20 gm PO TID #1 02/09/17 Rx Review of System - Review of System ROS unobtainable: due to mental status - Review of System Constitutional: Present: other (AMS) Medical,Surgical,& Family Hx - Medical History Cardio: History of: Hypertension No history of: Cardiovascular Problems Psychological: History of: Psychiatric/Substance Abuse Tx No history of: Anxiety Disorders, ADHD, Behavior Problems, Bipolar Disorder, Depression, Previous Suicide Attempt, Schizophrenia, Violent Behavior, Psychiatric Problems HEENT: History of: Eye Problem Endocrine: No history of: Diabetes Mellitus (IDDM) Respiratory: History of: Asthma, Bronchitis, Pneumonia Gastrointestinal: History of: Liver Problems Musculoskeletal: No history of: Amputation Hematology: History of: Anemia - Surgical History Cardiac Surgeries: Patient Denies: Cardiac Catheterization Thoracic Surgeries: Patient denies;: Organ Transplant Neurologic Surgeries: Patient denies: Neurologic Surgery HEENT Surgeries: Patient denies: Eye Surgery, Thyroid Surgery Abdominal Surgeries: Surgical HX of: Cholecystectomy, Colonoscopy Patient denies: Abdominal Surgery, Hernia Repair Reproductive Surgeries: Patient denies;: Genitourinary Surgery, Gynecologic Surgery - Family History Family History: Reports;: Family Cancer (mom, dad), Family Diabetes (SISTER), Family Hypertension (mom, dad) Denies;: Family Psychiatric Problems - Social History Smoking Status: Current every day smoker Frequency of Alcohol Use: None Type of Drug Use: None Exam Vital Signs: Vital Signs Temperature 97.5 F L 02/17/17 04:05 Pulse Rate 81 02/17/17 04:05 Respiratory Rate 20 02/17/17 04:05 Blood Pressure 107/49 02/17/17 04:05 O2 Sat by Pulse Oximetry 98 02/17/17 04:05 - General General appearance: alert, in no apparent distress - Head Head exam: Present: atraumatic, normocephalic, other (several decayed and missing teeth) - Eye Eye exam: Present: normal appearance, PERRL, EOMI - ENT ENT exam: Present: normal exam - Neck Neck exam: Present: normal inspection - Chest Chest inspection: Present: normal inspection - Respiratory Respiratory exam: Present: normal lung sounds bilaterally - Cardiovascular Cardiovascular exam: Present: regular rate, normal rhythm, normal heart sounds - Abdominal Exam Abdominal exam: Present: soft, tenderness (RUQ), other (dao noted on abdomen) . Absent: distention, guarding, rebound - Extremities Exam Extremities exam: Present: full ROM, normal capillary refill, other (+1 pitting edema LE bilat; greater on RLE). Absent: tenderness - Back Exam Back exam: Present: normal inspection - Neurological Exam Neurological exam: Present: alert, oriented X3, CN II-XII intact - Psychiatric Psychiatric exam: Present: normal affect, normal mood - Skin Skin exam: Present: warm, dry, intact, normal color Course Course Narrative: Spoke with hospitalist who will admit patient for low potassium hypokalemia. Patient was just recently discharged from their service for same symptoms. Ammonia levels not back yet . pt is stable at this time. Results - Labs CBC & BMP: 02/17/17 04:57 02/17/17 04:57 Lab Results: I have reviewed the patients labs Disposition Clinical Impression: Altered mental status, Hypokalemia Disposition: Still a Patient Condition: Stable Time of Disposition: 05:43
[2017-02-17 05:21] LABS: Basophils % 0.3 % (0.0-0.8); Eosinophils # 0.1 10*3/uL (0.0-0.87); Eosinophils % 1.5 % (0.00-10.9); Hemoglobin 10.9 GM/DL (12.0-16.0); Immature Granulocytes % 0.3 %; Immature Granulocytes Absolute 0.01 #; Lymphocytes # 1.2 10*3/uL (1.4-4.0); Lymphocytes % 34.9 % (21.3-54.2); Mean Corpuscular HGB Conc 37.6 GM/DL (32-36); Mean Corpuscular Hemoglobin 37 PG (27-34); Mean Corpuscular Volume 97.3 FL (87-102); Mean Platelet Volume 10.1 FL (9.6-12.0); Monocytes # 0.4 10*3/uL (0.11-0.8); Monocytes % 10.6 % (1.7-12.7); Neutrophils # 1.8 10*3/uL (1.4-7.4); Neutrophils % 52.4 % (38.7-73.9); Red Blood Count 2.98 MC/CUMM (3.8-5.5); Red Cell Distribution Width 13.4 % (9.3-17.3); White Blood Count 3.4 T/CUMM (4-12)
[2017-02-17 05:29] LABS: Platelet Count 67 T/CUMM (130-400)
[2017-02-17 05:30] LABS: Alanine Aminotransferase 49 U/L (13-56); Albumin 1.4 G/DL (3.4-5.0); Alkaline Phosphatase 299 U/L (45-117); Aspartate Amino Transferase 133 U/L (0-37); Blood Urea Nitrogen 21 MG/DL (7-18); Calcium 7.2 MG/DL (8.5-10.1); Glucose 86 MG/DL (74-106); Sodium 143 MMOL/L (136-145); Total Protein 5.6 G/DL (6.4-8.3)
[2017-02-17 05:34] LABS: Ammonia 108 UMOL/L (11-32)
[2017-02-17] MEDS ORDERED: POTASSIUM CHLORIDE RIDER 20 MEQ in PREMIX 1 EACH IV STA (05:41)
[2017-02-17 05:49] LABS: Apearance,Urine CLEAR (Clear); Bilirubin,Urine Negative (Negative); Blood, Urine Negative (Negative); Glucose,Urine (UA) Negative (Negative); Ketones,Urine Negative (Negative); Nitrite,Urine Negative (Negative); Protein,Urine Negative; RBC,Urine 1 /HPF (0-4); Urine Color Straw (Yellow); Urine Specific Gravity 1.004 (1.001-1.035); Urine Urobilinogen < 2.0 EU/DL (0.2-1.0); WBC,Urine <1 /HPF (0-6)
[2017-02-17 06:05] LABS: Barbiturates Screen,Urine Negative (Negative); Benzodiazepines Screen,Urine Negative (Negative); Cannabinoid Screen,Urine Negative (Negative); Opiate Screen,Urine Negative (Negative); Phencyclidine Screen,Urine Negative (Negative)
[2017-02-17] MEDS ORDERED: ONDANSETRON 4 MG/2 ML VIAL IV PRN (06:46)
--- NOTE | 2017-02-17 06:56 | Hospitalist History & Physical ---
Assessment and Plan (1) Altered mental status Status: Acute Assessment and plan: Probably due to hepatic encephalopathy. Electrolyte imbalance may be contributing to his hepatic encephalopathy but I do not know for sure if she is compliant to her medication at home. Will replace potassium and started on rifaximin and lactulose. Will also obtain abdominal ultrasound to make assess presence of ascites. Patient is obese does not seem to have a tense abdomen if symptoms does not improve and has ascites on ultrasound may need paracentesis to evaluate for infection Current Visit: Yes (2) Hypokalemia Status: Acute Assessment and plan: Patient has severe hypokalemia and need EKG progresses Beekley placed I think because hypokalemia is due to patient both on loop and pertinent thiazide diuretic (metolazone). Potassium need to be monitored and replace as needed she need to be on monitor while potassium is being replaced and needing lactulose for encephalopathy. I will stop metolazone and Lasix. On long-term basis she may benefit from spironolactone rather than metolazone with the not had any tendency for hyporkalemia with that. Spironolactone actually can be combined with the loop diuretics. Current Visit: Yes (3) Chronic liver disease Status: Chronic Assessment and plan: Unsure because of her chronic liver disease need to avoid any hepatotoxins. At this time I am not able to get history from patient given a recommendation. Family member also not present at the moment Current Visit: Yes (4) Hypotension Status: Acute Assessment and plan: Midodrine 5 mg 3 times daily has been added when patient able to take medicine by mouth Current Visit: Yes (5) DVT prophylaxis Status: Acute Assessment and plan: Mechanical device ordered. PT /PTT pending due to liver disease I will avoid pharmacological agent at present Current Visit: Yes History of Present Illness Chief complaint: Altered mental History of present illness: Ms. Jhaveri is a 51 year old female who is unable to provide any meaningful history family not available. She was brought for altered mental status. Ms. Ashley has history of for cirrhosis of liver diabetes mellitus and asthma. Patient was admitted here on 02/04/2017 with similar symptoms and was discharged on 02/09/2017. As mentioned history not available patient has no fever or she complain of pain in her feet. The ER lab work done showed hemoglobin 10.9 and hematocrit 29 grossly stable from previous values platelet count of 67 also grossly unchanged WBC count is 3.4 her potassium 2.0 sodium 143 potassium 2.0 CO2 25 chloride 108 BUN 21 creatinine 0.9. Ammonia level is 108 albumin 1.4 alkaline phosphatase 299 AST 133 ALT 49. Previous record review showed she was discharged on rifaximin but I do not know compliance. Home Medications Medication Instructions Recorded Confirmed Type Rifaximin [Xifaxan] 550 mg PO BID #60 tablet 01/05/17 02/04/17 Rx hydrOXYzine HCL TAB [Atarax Tab] 25 mg PO Q6H PRN #30 tablet 01/05/17 02/04/17 Rx Albuterol Inhaler [Proventil 2 puff INH Q4H PRN 01/09/17 02/04/17 History Inhaler] Folic Acid Tab 1 mg PO QAM 01/09/17 02/04/17 History Pantoprazole Tab [Protonix Tab] 40 mg PO QAM 01/09/17 02/04/17 History Furosemide Tab [Lasix Tab] 40 mg PO BID #60 tablet 01/15/17 02/04/17 Rx HYDROcodone/ACETAMIN 5-325 [[place] 1 tablet PO Q4H PRN #20 tablet 01/15/17 Rx 5-325] Ibuprofen Tab [Motrin Tab] 600 mg PO Q6H PRN #0 tablet 01/15/17 02/04/17 Rx Levofloxacin Tab [Levaquin Tab] 500 mg PO DAILY #10 tablet 01/15/17 02/04/17 Rx Potassium Chloride 10 meq PO DAILY #20 capsule 01/15/17 02/04/17 Rx metOLazone [Zaroxolyn] 5 mg PO BID #60 tablet 01/15/17 02/04/17 Rx Lactulose Liquid [Chronulac] 20 gm PO TID #1 02/09/17 Rx Allergies Allergy/AdvReac Type Severity Reaction Status Date / Time No Known Allergies Allergy Verified 02/04/17 12:37 Medical,Surgical,& Family Hx - Medical History Cardio: History of: Hypertension No history of: Cardiovascular Problems Psychological: History of: Psychiatric/Substance Abuse Tx No history of: Anxiety Disorders, ADHD, Behavior Problems, Bipolar Disorder, Depression, Previous Suicide Attempt, Schizophrenia, Violent Behavior, Psychiatric Problems HEENT: History of: Eye Problem Endocrine: No history of: Diabetes Mellitus (IDDM) Respiratory: History of: Asthma, Bronchitis, Pneumonia Gastrointestinal: History of: Liver Problems Musculoskeletal: No history of: Amputation Hematology: History of: Anemia - Surgical History Cardiac Surgeries: Patient Denies: Cardiac Catheterization Thoracic Surgeries: Patient denies;: Organ Transplant Neurologic Surgeries: Patient denies: Neurologic Surgery HEENT Surgeries: Patient denies: Eye Surgery, Thyroid Surgery Abdominal Surgeries: Surgical HX of: Cholecystectomy, Colonoscopy Patient denies: Abdominal Surgery, Hernia Repair Reproductive Surgeries: Patient denies;: Genitourinary Surgery, Gynecologic Surgery - Family History Family History: Reports;: Family Cancer (mom, dad), Family Diabetes (SISTER), Family Hypertension (mom, dad) Denies;: Family Psychiatric Problems - Social History Smoking Status: Current every day smoker Frequency of Alcohol Use: None Type of Drug Use: None ROS unobtainable: due to mental status Exam - Constitutional Vitals: Period Temp Pulse Resp BP Sys/Grajeda Pulse Ox Last 24 Hr 97.5 F-97.5 F 81-81 19-20 107-107/49-49 98-98 General appearance: over weight - Head Head exam: Present: normal inspection, normocephalic, atraumatic - Eye Eye exam: Present: EOMI, scleral icterus. Absent: conjunctival injection Pupils: Present: JORDAN - Neck Neck exam: Present: other (Supple) - Respiratory Respiratory exam: Present: clear to auscultation bilaterally. Absent: accessory muscle use, rales, rhonchi - Cardiovascular Cardiovascular exam: Present: regular rate and rhythm. Absent: tachycardia - GI/Abdominal GI/Abdominal exam: Present: normal bowel sounds, soft (Obese). Absent: tenderness - Extremities Exam Extremities exam: Present: edema (Bilateral lower extremity 2+ edema present) - Neurological Exam Neurological exam: Present: other (Patient is altered. She is awake but not oriented) Results - Labs CBC & BMP: 02/17/17 04:57 02/17/17 04:57 Lab Results: I have reviewed the past 24 hour labs
[2017-02-17] MEDS ORDERED: SODIUM CHLORIDE 0.9% 1,000 ML IV SCH (07:00)
[2017-02-17 07:07] LABS: INR 1.4; PT Patient Result 14.6 SECS; Partial Thromboplastin Time 32.1 SECS (0-40)
[2017-02-17] MEDS ORDERED: ALBUTEROL 2.5 MG/3 ML NEB RESP TX PRN (07:30)
[2017-02-17] MEDS ORDERED: POTASSIUM CHLORIDE 20 MEQ TABLET PO ONE (07:34)
[2017-02-17] MEDS: FOLIC ACID 1 MG TABLET PO SCH (08:57)
[2017-02-17] MEDS: LACTULOSE 20 GM/30 ML UDCUP PO SCH ×4 (08:57→22:02)
[2017-02-17] MEDS: PANTOPRAZOLE 40 MG TABLET PO SCH (08:57)
[2017-02-17] MEDS: MIDODRINE 5 MG TABLET PO SCH ×4 (08:57→22:04)
[2017-02-17] MEDS: RIFAXIMIN 550 MG TABLET PO SCH ×3 (08:57→22:03)
[2017-02-17] MEDS: POTASSIUM CHLORIDE RIDER 10 MEQ in PREMIX 1 EACH IV SCH ×6 (09:36→23:34)
--- NOTE | 2017-02-17 11:05 | Event Note ---
51-year-old [place] female admitted to the hospital with altered mental status and hepatic encephalopathy with an elevated ammonia level and severe hypokalemia. The patient was admitted early this morning. Potassium supplementation has been ordered. Repeat labs ordered for 3 PM. She is currently in the CCU due to her significant altered mental status. Further recommendations will depend on her response to therapy. She has been started on lactulose and rifaximin.
--- NOTE | 2017-02-17 11:50 | Ultrasound Report ---
Abdominal ultrasound Indication: Ascites Findings: Small amount right upper quadrant and trace amount of right lower quadrant ascites present. None present on the left.. Impression: Small amount of abdominal ascites as described above. Ultrasound images stored and captured. PROCEDURE INTERPRETED AT [facility] DEPARTMENT OF RADIOLOGY Final Report Signed by: Dr. Jason White
[2017-02-17] MEDS ORDERED: POTASSIUM CHLORIDE RIDER 100 ML IV ONE (14:10)
[2017-02-17 15:55] LABS: Calcium 8.2 MG/DL (8.5-10.1); Osmolality,Calculated 285.1 MOS/KG (273-304)
[2017-02-17 15:58] LABS: Potassium 2.5 MMOL/L (3.5-5.1)
[2017-02-17] MEDS: POTASSIUM CHLORIDE 20 MEQ TABLET PO ONE ×2 (21:04→22:03)
[2017-02-17] MEDS ORDERED: LORazepam 2 MG/1 ML VIAL IV PRN (22:05)
[2017-02-18] MEDS: POTASSIUM CHLORIDE RIDER 10 MEQ in PREMIX 1 EACH IV SCH ×6 (00:31→15:13)
[2017-02-18 05:13] LABS: Eosinophils # 0.1 10*3/uL (0.0-0.87); Eosinophils % 2.5 % (0.00-10.9); Hematocrit 22.4 VOL% (35.7-47.0); Hemoglobin 8.2 GM/DL (12.0-16.0); Immature Granulocytes % 0.2 %; Immature Granulocytes Absolute 0.01 #; Lymphocytes # 1.8 10*3/uL (1.4-4.0); Lymphocytes % 44.9 % (21.3-54.2); Mean Corpuscular HGB Conc 36.6 GM/DL (32-36); Mean Corpuscular Hemoglobin 36 PG (27-34); Mean Corpuscular Volume 99.1 FL (87-102); Mean Platelet Volume 10.2 FL (9.6-12.0); Monocytes # 0.3 10*3/uL (0.11-0.8); Monocytes % 7.5 % (1.7-12.7); Neutrophils # 1.8 10*3/uL (1.4-7.4); Neutrophils % 44.9 % (38.7-73.9); Platelet Count 67 T/CUMM (130-400); Red Blood Count 2.26 MC/CUMM (3.8-5.5); Red Cell Distribution Width 14.1 % (9.3-17.3)
[2017-02-18 05:56] LABS: Albumin 1.4 G/DL (3.4-5.0); Bilirubin,Total 5.1 MG/DL (0.2-1.0); Calcium 8.1 MG/DL (8.5-10.1); Osmolality,Calculated 286.8 MOS/KG (273-304); Total Protein 5.6 G/DL (6.4-8.3)
[2017-02-18 06:00] LABS: Potassium 2.4 MMOL/L (3.5-5.1)
[2017-02-18] MEDS: POTASSIUM CHLORIDE RIDER 10 MEQ in PREMIX 1 EACH IV PRN ×6 (06:39→23:18)
[2017-02-18 07:38] LABS: Eosinophils 2 % (0-10); Hypochromasia 1+; Lymphocytes 19 % (20-55); Platelet Estimate Decreased; Segmented Neutrophils 69 % (50-85); Total Cells Counted 100
[2017-02-18] MEDS: POTASSIUM CHLORIDE 10 MEQ TABLET PO SCH (08:48)
[2017-02-18] MEDS: PANTOPRAZOLE 40 MG TABLET PO SCH (08:48)
[2017-02-18] MEDS: MIDODRINE 5 MG TABLET PO SCH ×3 (08:48→21:06)
[2017-02-18] MEDS: FOLIC ACID 1 MG TABLET PO SCH (08:48)
[2017-02-18] MEDS: RIFAXIMIN 550 MG TABLET PO SCH ×2 (08:49→21:06)
[2017-02-18] MEDS ORDERED: POTASSIUM CHLORIDE 20 MEQ TABLET PO ONE (09:00)
--- NOTE | 2017-02-18 09:03 | Hospitalist Progress Note ---
Assessment and Plan (1) Acute hepatic encephalopathy Status: Acute Assessment and plan: Patient is receiving lactulose and Xifaxan. She has been refusing all medications. Lactulose will be given rectally today. Consult GI Repeat ammonia levels in a.m. and monitor liver function tests Current Visit: Yes (2) Serum total bilirubin elevated Status: Acute Current Visit: Yes (3) Anemia Status: Chronic Current Visit: Yes Qualifiers: Anemia type: other cause Other causes of anemia: chronic disease, other Qualified Code(s): D63.8 - Anemia in other chronic diseases classified elsewhere (4) Hypokalemia Status: Acute Assessment and plan: Oral and IV replacement have been ordered Current Visit: Yes (5) Elevated liver enzymes Status: Acute Assessment and plan: Related to chronic liver disease and cirrhosis Hepatitis panel negative December 2016. Current Visit: Yes (6) Liver cirrhosis, alcoholic Status: Chronic Current Visit: Yes (7) Chronic liver disease Status: Chronic Current Visit: Yes Hospitalist: Subjective Interval history: Patient remains encephalopathic this morning. She has refused multiple doses of her medications. She has had no bowel movements despite lactulose yesterday. Due to her refusal of oral medications I have ordered her lactulose to be given rectally. An NG tube placement was attempted yesterday and resulted in significant bleeding and blood loss. I have instructed the nurses to not reattempt NG tube placement. I will be consulting gastroenterology for their input on this patient with cirrhosis and hepatic encephalopathy. She was recently seen by Dr. Triplett on her previous hospitalization. Exam - Constitutional Vitals: Period Temp Pulse Resp BP Sys/Grajeda Pulse Ox Last 24 Hr 97.8 F-98.8 F 71-106 10-22 88-130/42-71 92-98 Exam: Constitutional System: No distress. No tremulousness. Encephalopathic. Awake but confused. Head: Normocephalic, atraumatic. Ears, Nose and Throat System: No pain or tenderness. No epistaxis or discharge Eyes System: Pupils equal, round, and reactive. Extraocular muscles intact. Neck: Supple, without adenopathy, No jugular venous distention. Respiratory System: Chest clear to auscultation. Cardiovascular System: Heart with regular rate and rhythm. No murmur. GI System: Abdomen soft, nontender. Normo active bowel sounds present. Musculoskeletal System: limbs with no pedal edema. Full distal pulses. Normal capillary refill. Neurological System: No discernable sensory deficit. No aphasia. Confused and disoriented Psychiatric System: Encephalopathic Results - Labs CBC & BMP: 02/18/17 04:19 02/18/17 04:19 Lab Results: I have reviewed the past 24 hour labs Quality Measures - VTE Contraindication to Pharmacological VTE Prophylaxis: Thrombocytopenia
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
[2017-02-18] MEDS: OCTREOTIDE 1,250 MCG in SODIUM CHLORIDE 0.9% 247.5 ML IV SCH (12:08)
[2017-02-18] MEDS: LACTULOSE 160 GM/240 ML BOTTLE RECTAL SCH ×3 (13:20→21:14)
[2017-02-19] MEDS: POTASSIUM CHLORIDE RIDER 10 MEQ in PREMIX 1 EACH IV PRN ×2 (01:30→03:00)
[2017-02-19] MEDS: LACTULOSE 160 GM/240 ML BOTTLE RECTAL SCH ×2 (04:15→12:17)
[2017-02-19 04:19] LABS: Basophils % 0.2 % (0.0-0.8); Eosinophils # 0.1 10*3/uL (0.0-0.87); Eosinophils % 3.2 % (0.00-10.9); Hematocrit 23.9 VOL% (35.7-47.0); Hemoglobin 8.5 GM/DL (12.0-16.0); Immature Granulocytes % 0.2 %; Immature Granulocytes Absolute 0.01 #; Lymphocytes # 1.8 10*3/uL (1.4-4.0); Lymphocytes % 43.9 % (21.3-54.2); Mean Corpuscular HGB Conc 35.6 GM/DL (32-36); Mean Corpuscular Hemoglobin 36 PG (27-34); Mean Corpuscular Volume 101.3 FL (87-102); Mean Platelet Volume 9.6 FL (9.6-12.0); Monocytes # 0.4 10*3/uL (0.11-0.8); Monocytes % 8.5 % (1.7-12.7); Neutrophils # 1.8 10*3/uL (1.4-7.4); Red Blood Count 2.36 MC/CUMM (3.8-5.5); Red Cell Distribution Width 14.3 % (9.3-17.3); White Blood Count 4.1 T/CUMM (4-12)
[2017-02-19 04:20] LABS: Platelet Count 64 T/CUMM (130-400)
[2017-02-19] MEDS ORDERED: SODIUM CHLORIDE 0.9% 250 ML IV ONE (04:32)
[2017-02-19 05:46] LABS: Giant Platelets Few; Hypochromasia 1+; Ovalocytes Slight; Platelet Estimate Decreased
[2017-02-19 07:09] LABS: Magnesium 2.3 MG/DL (1.8-2.4); Osmolality,Calculated 286.8 MOS/KG (273-304); Potassium 3.2 MMOL/L (3.5-5.1)
[2017-02-19 07:13] LABS: Albumin 1.5 G/DL (3.4-5.0); Bilirubin,Total 5.3 MG/DL (0.2-1.0); Osmolality,Calculated 287.8 MOS/KG (273-304); Potassium 3.1 MMOL/L (3.5-5.1); Total Protein 5.9 G/DL (6.4-8.3)
[2017-02-19] MEDS ORDERED: SODIUM CHLORIDE 0.9% 250 ML IV PRN (07:49)
--- NOTE | 2017-02-19 07:56 | Order Completion Report ---
See report scanned to EMR
[2017-02-19] MEDS: PANTOPRAZOLE 40 MG TABLET PO SCH (09:41)
[2017-02-19] MEDS: RIFAXIMIN 550 MG TABLET PO SCH ×2 (09:41→21:23)
[2017-02-19] MEDS: FOLIC ACID 1 MG TABLET PO SCH (09:41)
[2017-02-19] MEDS: MIDODRINE 5 MG TABLET PO SCH ×3 (09:41→21:22)
[2017-02-19] MEDS: POTASSIUM CHLORIDE 10 MEQ TABLET PO SCH (09:44)
--- NOTE | 2017-02-19 11:16 | Hospitalist Progress Note ---
Assessment and Plan (1) Acute hepatic encephalopathy Status: Acute Assessment and plan: 1)encephalopathy, triggered by acute GI bleed- EGD today per DR Triplett. On sandostatin, no hematemesis or vomiting since admission. Transfusing 2 U PRBC since her SBP is in the 70s and she is anemic with bleeding. She will have DObhoff or keofed placed today at EGD. Continue the lactulose (rectal until NG placed) and xifaxin. Ammonia level down to 89from 108. transaminases remain elevated, bili 5.3. Chronic liver failure. 2)hypokalemia- replace 3)Hyponatremia- improved. 4)alcoholism- no alcohol for 6 weeks. 5)hypotension- she runs low due to her cirrhosis. she is on midodrine. Current Visit: Yes (2) Liver cirrhosis, alcoholic Status: Chronic Current Visit: Yes (3) Hypokalemia Status: Acute Current Visit: Yes (4) Hyponatremia Status: Resolved Current Visit: No (5) Hypotension Status: Acute Current Visit: Yes (6) Acute upper gastrointestinal hemorrhage Status: Acute Current Visit: Yes Hospitalist: Subjective Interval history: Mrs Jhaveri is feeling ok this morning. She thinks she is in [place]. She denies pain or nausea. She is receiving transfusion of PRBC for hypotension and anemia. Her family is present and says she has been an alcoholic and continued to drink in the last 2 years since her diagnosis or cirrhosis, but has not had alcohol in 6 weeks since she started coming frequently to the hospital. Exam - Constitutional Vitals: Period Temp Pulse Resp BP Sys/Grajeda Pulse Ox Last 24 Hr 98.2 F-99 F 75-99 11-26 74-109/36-62 97-100 General appearance: no acute distress, over weight - Eye Eye exam: Present: EOMI, scleral icterus - Respiratory Respiratory exam: Present: clear to auscultation bilaterally - Cardiovascular Cardiovascular exam: Present: regular rate and rhythm - GI/Abdominal GI/Abdominal exam: Present: normal bowel sounds, soft. Absent: tenderness - Extremities Exam Extremities exam: Present: edema (2+ pretibial) - Neurological Exam Neurological exam: Present: alert, other (asterixis present). Absent: oriented X3 - Skin Skin exam: Present: warm, dry Results - Labs CBC & BMP: 02/19/17 04:14 02/19/17 06:07 Lab Results: I have reviewed the past 24 hour labs Quality Measures - VTE Contraindication to Pharmacological VTE Prophylaxis: Thrombocytopenia
[2017-02-19] MEDS: OCTREOTIDE 1,250 MCG in SODIUM CHLORIDE 0.9% 247.5 ML IV SCH (12:30)
[2017-02-19] MEDS ORDERED: KETAMINE 500 MG/10 ML VIAL ONE (14:48)
--- NOTE | 2017-02-19 14:52 | Operative Note ---
Date of procedure: 02/19/17 Pre-op diagnosis: Hematemesis, alcoholic cirrhosis, possible varices?, encephalopathy Post-op diagnosis: other (This patient had bleeding due to a number of causes: 13 cm of LA class D erosive esophagitis in the distal third of the esophagus. There was gastroparesis evident by retained food in the fundus, lesser curvature gastric ulcer 3 cm in size biopsied to rule out malignancy, duodenal bulb ulcer and duodenitis noted as well.) Procedure: PROCEDURE: Esophagogastroduodenoscopy (EGD) with cold biopsy for pathology , failure to Place Dobbhoff feeding tube REFERRING PHYSICIAN: Shannan Escudero MD INDICATIONS: Hematemesis, anemia, possible varices, hepatic encephalopathy with need for Dobbhoff feeding tube in order to give lactulose. The prior H&P was reviewed and interrim changes are as noted: No change from GI consultation yesterday ENDOSCOPIST: Manuel Triplett MD ENDOSCOPE: Olympus Video 100 System upper endoscope ASA CLASS: 4 EXAM: CV: regular rate and rhythm respiratory: Clear without wheezes abdominal: active bowel sounds MEDICATION: Per nursing anesthesia protocol, see their notes PROCEDURE: After discussion of the potential risks and benefits of upper endoscopy, the informed consent was obtained. The patient was then placed in the left lateral decubitus position where sedation was achieved as noted above. Esophageal intubation was performed without difficulty, and the endoscope was advanced through the esophagus, stomach and duodenum. A slow withdrawal was then performed with retroflexion in the stomach for careful inspection of the incisura angularis, fundus and cardia. The scope was then returned to a neutral position and withdrawn through the esophagus. The patient tolerated the procedure well and without complication. BIOPSIES: Gastric antrum/body PHOTOGRAPHS: Obtained FINDINGS: Hypopharynx and Larynx: We attempted to get the Dobbhoff feeding tube through the nasopharynx approximately 8 times with inability to penetrate into the nasopharynx, I suspect she has altered anatomy making this impossible Esohagoscopy Upper and middle thirds: Class 1 varices, 2 columns Lower third Class 1 varices, 2 columns Esophogastric junctions: No gross evidence of esophagitis or Tucker's Gastroscopy: Cardia/Fundus: Portal hypertensive gastropathy, mild, moderate amount of retained food in the fundus suspicious for gastroparesis Body: Mild to moderate gastritis, biopsied Antrum and pylorus moderate nodular gastritis, biopsied Duodenoscopy: Bulb normal Second and third portions: Normal IMPRESSION: This patient had an alteration of her nasopharyngeal anatomy making it impossible for us to advance the Dobbhoff feeding tube through this area. This may have to be placed by ENT or less likely interventional radiology , if still felt to be needed. Class I varices 2 columns, portal hypertensive and mild patchy gastropathy with a nodular component at the antrum. RECOMMENDATIONS: We will take the patient off of octreotide at this point and put her on beta- blockers due to esophageal varices Follow up for biopsy results in 1-2 weeks by phone [phone] Continue anti-gastroesophageal reflux measures (avoid carbonated and acidic beverages, avoid eating within 2 hours of bedtime, avoid tight fitting clothing , and elevate the front bed posts 6 inches prior to sleeping. Depending on pathology we may have to treat this patient with Helicobacter pylori targeting drugs. Continue to follow ammonia if the patient will drink lactulose and take her Xifaxan 550 mg per twice daily Manuel Triplett MD COPY TO: Shannan Escudero MD Anesthesia: GETA Surgeon / Physician: Manuel Triplett Estimated blood loss: minimal Specimens: other (Gastric antrum/body) Condition: stable Disposition: post procedure unit (G.I. Suite) Results - Labs CBC & BMP: 02/19/17 04:14 02/19/17 06:07 Discharge Plan - Discharge Medications No Action hydrOXYzine HCL TAB [Atarax Tab] 25 mg PO Q6H PRN #30 tablet PRN Reason: Itching Rifaximin [Xifaxan] 550 mg PO BID #60 tablet Albuterol Inhaler [Proventil Inhaler] 2 puff INH Q4H PRN PRN Reason: Shortness Of Breath/Wheezing Folic Acid Tab 1 mg PO QAM Pantoprazole Tab [Protonix Tab] 40 mg PO QAM Furosemide Tab [Lasix Tab] 40 mg PO BID #60 tablet Ibuprofen Tab [Motrin Tab] 600 mg PO Q6H PRN #0 tablet PRN Reason: Fever, Headache, Mild Pain Levofloxacin Tab [Levaquin Tab] 500 mg PO DAILY #10 tablet Potassium Chloride 10 meq PO DAILY #20 capsule HYDROcodone/ACETAMIN 5-325 [[place] 5-325] 1 tablet PO Q4H PRN #20 tablet PRN Reason: Pain Moderate (4-7) Lactulose Liquid [Chronulac] 20 gm PO TID #1 metOLazone [Zaroxolyn] 5 mg PO BID #60 tablet - Follow Up or Referral - Forms/Instructions
--- NOTE | 2017-02-19 14:56 | Anesthesia Post-Op ---
Anesthesia Post OP - Post Ansesthetic Evaluation Patient seen in post op: Yes Resp: within normal limits CV: within normal limits Mental: within normal limits Temp: within normal limits [id number]: within normal limits Nausea and Vomiting: within normal limits Pain: within normal limits
--- NOTE | 2017-02-19 14:59 | Gastrointestinal Progress Note ---
Assessment and Plan (1) Acute upper gastrointestinal hemorrhage Status: Acute Assessment and plan: This patient's hematocrit has decreased down to 22%, she has an acute increase in her ammonia level indicating probable digested blood as well as coffee- ground emesis yesterday with attempted placement of the NG tube. The Dobbhoff feeding tube attempt today yielded less blood but was still unsuccessful in placing a conduit through which we could give her lactulose and her other medications/feeding. She is completely uncooperative with the attempts to place this Dobbhoff. The patient will be needing an upper endoscopy tomorrow and will plan on placing a feeding tube at that time while she is asleep. I am concerned about esophageal varices and we will start the patient on some octreotide in the interim while we await upper endoscopy tomorrow morning. She has a potassium level of 2.4 and this needs to be replaced prior to the endoscopy. 02/19/17--surprisingly the patient did not have any significant amount of heme in her stomach. The findings of the upper endoscopy were as follows: Nasopharyngeal altered anatomy that made it difficult to get the Dobbhoff feeding tube through this region. Although we tried a times this was not successful ultimately and we had to abandon placement of the feeding tube. Patient did have LA class I varices noted 2 columns. Patient had hypertensive gastropathy as well as nodular gastropathy both of which were biopsied the duodenum appeared normal. There was retained food in the stomach consistent with gastroparesis as well. Current Visit: Yes (2) Acute hepatic encephalopathy Status: Acute Assessment and plan: Ammonia level is 108 yesterday and is now in the 90s, likely this is been elevated because of digested blood although ongoing cirrhosis is also possible. We will arrange for upper endoscopy to occur tomorrow and placement of a Dobbhoff versus Keofeed feeding tube to follow and see whether this will help her improve from the encephalopathy. She certainly has been uncooperative as far as taking Xifaxan. 02/19/17--Ammonia level went from 97 yesterday down to 89 today. She is going to be offered the lactulose again as well as Xifaxan orally to see whether or not this will help out with the underlying encephalopathy. Again it is not possible to give her the lactulose Via Dobbhoff feeding tube as this cannot be advanced through the nasal turbinates. Current Visit: Yes (3) Alcoholic cirrhosis Status: Chronic Assessment and plan: The patient states that she has maintained her sobriety. 02/19/17--patient is maintaining her sobriety, by report. Current Visit: No Qualifiers: Ascites presence: without ascites Qualified Code(s): K70.30 - Alcoholic cirrhosis of liver without ascites (4) Hypokalemia Status: Acute Assessment and plan: Patient will need multiple runs of potassium in order to undergo upper endoscopy tomorrow. 02/19/17--appears to be doing well with potassium up to 3.2. Current Visit: Yes Gastroenterology - PN: Subj Interval history: The patient went to upper endoscopy this morning with findings as noted above. She seem to be in better spirits and little bit more awake today. She is still not very cooperative. Exam (Progress Note) - Constitutional Vitals: Period Temp Pulse Resp BP Sys/Grajeda Pulse Ox Last 24 Hr 96.9 F-99 F 71-99 11-26 74-109/36-77 96-100 General appearance: mild distress - Head Head exam: Present: normocephalic - Eye Eye exam: Present: EOMI - Respiratory Respiratory exam: Present: clear to auscultation bilaterally - Cardiovascular Cardiovascular exam: Present: regular rate and rhythm - GI/Abdominal GI/Abdominal exam: Present: normal bowel sounds, tenderness, soft. Absent: distended, guarding, rebound - Extremities Exam Extremities exam: Present: edema - Neurological Exam Neurological exam: Present: alert, altered (Patient is confused, can speak and follow some simple commands.) - Psychiatric Psychiatric exam: Present: normal affect, normal mood - Skin Skin exam: Present: warm Results - Labs CBC & BMP: 02/19/17 04:14 02/19/17 06:07
[2017-02-19] MEDS: LACTULOSE 20 GM/30 ML UDCUP PO SCH ×2 (18:11→21:23)
[2017-02-19 20:26] LABS: Basophils % 0.4 % (0.0-0.8); Eosinophils # 0.2 10*3/uL (0.0-0.87); Hematocrit 30.8 VOL% (35.7-47.0); Hemoglobin 10.8 GM/DL (12.0-16.0); Immature Granulocytes % 0.2 %; Immature Granulocytes Absolute 0.01 #; Lymphocytes # 1.8 10*3/uL (1.4-4.0); Lymphocytes % 39.7 % (21.3-54.2); Mean Corpuscular HGB Conc 35.1 GM/DL (32-36); Mean Corpuscular Hemoglobin 35 PG (27-34); Mean Corpuscular Volume 99.7 FL (87-102); Monocytes # 0.5 10*3/uL (0.11-0.8); Monocytes % 10.1 % (1.7-12.7); Neutrophils % 45.6 % (38.7-73.9); Platelet Count 66 T/CUMM (130-400); Red Blood Count 3.09 MC/CUMM (3.8-5.5); Red Cell Distribution Width 16.2 % (9.3-17.3); White Blood Count 4.5 T/CUMM (4-12)
[2017-02-19 21:22] LABS: Burr Cells Slight; Platelet Estimate Decreased; Poikilocytosis Slight
[2017-02-19] MEDS: POTASSIUM CHLORIDE 20 MEQ TABLET PO PRN ×2 (21:23→23:24)
[2017-02-20] MEDS: POTASSIUM CHLORIDE 20 MEQ TABLET PO PRN ×4 (02:30→13:38)
[2017-02-20 06:45] LABS: Basophils % 0.3 % (0.0-0.8); Eosinophils # 0.2 10*3/uL (0.0-0.87); Eosinophils % 4.1 % (0.00-10.9); Hematocrit 27.7 VOL% (35.7-47.0); Immature Granulocytes % 0.3 %; Immature Granulocytes Absolute 0.01 #; Lymphocytes # 1.7 10*3/uL (1.4-4.0); Lymphocytes % 45.8 % (21.3-54.2); Mean Corpuscular HGB Conc 36.1 GM/DL (32-36); Mean Corpuscular Hemoglobin 36 PG (27-34); Mean Corpuscular Volume 98.2 FL (87-102); Mean Platelet Volume 10.1 FL (9.6-12.0); Monocytes # 0.4 10*3/uL (0.11-0.8); Monocytes % 11.4 % (1.7-12.7); Neutrophils # 1.4 10*3/uL (1.4-7.4); Neutrophils % 38.1 % (38.7-73.9); Red Blood Count 2.82 MC/CUMM (3.8-5.5); Red Cell Distribution Width 16.6 % (9.3-17.3); White Blood Count 3.7 T/CUMM (4-12)
[2017-02-20 06:48] LABS: Platelet Count 62 T/CUMM (130-400)
[2017-02-20 07:15] LABS: Eosinophils 3 % (0-10); Giant Platelets Few; Hypochromasia 1+; Lymphocytes 41 % (20-55); Ovalocytes Slight; Platelet Estimate Decreased; Segmented Neutrophils 49 % (50-85); Total Cells Counted 100
[2017-02-20 07:16] LABS: Albumin 1.5 G/DL (3.4-5.0); Bilirubin,Total 6.1 MG/DL (0.2-1.0); Calcium 7.9 MG/DL (8.5-10.1); Osmolality,Calculated 286.1 MOS/KG (273-304); Potassium 3.5 MMOL/L (3.5-5.1); Total Protein 5.9 G/DL (6.4-8.3)
[2017-02-20] MEDS: RIFAXIMIN 550 MG TABLET PO SCH ×2 (09:31→21:37)
[2017-02-20] MEDS: PANTOPRAZOLE 40 MG TABLET PO SCH (09:31)
[2017-02-20] MEDS: LACTULOSE 20 GM/30 ML UDCUP PO SCH ×3 (09:31→21:37)
[2017-02-20] MEDS: MIDODRINE 5 MG TABLET PO SCH ×3 (09:31→21:37)
[2017-02-20] MEDS: FOLIC ACID 1 MG TABLET PO SCH (09:32)
[2017-02-20] MEDS: POTASSIUM CHLORIDE 10 MEQ TABLET PO SCH (09:32)
--- NOTE | 2017-02-20 10:24 | Pathology Report from [facility] ---
[facility] ACCESSION # : [id number] PATIENT NAME : Anna Jhaveri ORDERING DR : Manuel Triplett MD CLINICAL HX: GI Bleed POST-OP DX: Gastritis SPECIMEN INFO: ANDERSON GROSS DESCRIPTION: The specimen is received in formalin labeled with the patients name and consists of a 0.8 x 0.2 cm aggregate of mullen tissue. Submitted in one cassette. DIAGNOSIS FOR ANNA Decker JERMAIN: ANDERSON BIOPSIES: Chronic gastritis. H. pylori not seen on H&E or special stain with appropriate control. COLLECTED DATE: 02/19/2017 [facility] REPORT DATE: 02/20/2017 ELECTRONICALLY SIGNED BY: Titi Lacey M.D. 02/20/2017 - 8:53:02 ANNE
--- NOTE | 2017-02-20 11:03 | Hospitalist Progress Note ---
Assessment and Plan (1) Acute hepatic encephalopathy Status: Acute Assessment and plan: 1)encephalopathy, triggered by acute GI bleed on chronic liver failure from alcoholic cirrhosis- on xifaxin and lactulose which she is now consistently taking orally (her nasal anatomy made it impossible for Dr Triplett to place a feeding tube at EGD). Continue meds and recheck ammonia in am. She is more alert and cooperative today. GIB was from gastropathy and varices- grade 1 in 2 columns. Defer stopping octreotide to Dr Triplett. 2)hypokalemia- replaced 3)Hyponatremia- resolved 4)alcoholism- no alcohol for 6 weeks. 5)hypotension- she runs low due to her cirrhosis. she is on midodrine. 6)dispo- to the floor family to stay with her. may need swing bed placement at discharge. Current Visit: Yes (2) Liver cirrhosis, alcoholic Status: Chronic Current Visit: Yes (3) Hypokalemia Status: Acute Current Visit: Yes (4) Hypotension Status: Acute Current Visit: Yes (5) Acute upper gastrointestinal hemorrhage Status: Acute Current Visit: Yes Hospitalist: Subjective Interval history: Ms Jhaveri denies pain or shortness of breath this morning. She is cooperative and cheered by the thought of going to the floor. She asks and answers questions appropriately, and seems more alert than yesterday though her ammonia level increased. UOP is 50/hour. She is eating clears. Exam - Constitutional Vitals: Period Temp Pulse Resp BP Sys/Grajeda Pulse Ox Last 24 Hr 97 F-98.9 F 66-92 11-21 79-108/38-77 93-100 General appearance: no acute distress, morbidly obese - Eye Eye exam: Present: EOMI, scleral icterus - Respiratory Respiratory exam: Present: clear to auscultation bilaterally - Cardiovascular Cardiovascular exam: Present: regular rate and rhythm - GI/Abdominal GI/Abdominal exam: Present: normal bowel sounds, soft. Absent: tenderness - Extremities Exam Extremities exam: Absent: edema - Neurological Exam Neurological exam: Present: alert. Absent: oriented X3 - Skin Skin exam: Present: warm, dry Results - Labs CBC & BMP: 02/20/17 05:56 02/20/17 10:03 Lab Results: I have reviewed the past 24 hour labs Quality Measures - VTE Contraindication to Pharmacological VTE Prophylaxis: Thrombocytopenia
--- NOTE | 2017-02-20 15:03 | Gastrointestinal Progress Note ---
Assessment and Plan (1) Acute upper gastrointestinal hemorrhage Status: Acute Assessment and plan: This patient's hematocrit has decreased down to 22%, she has an acute increase in her ammonia level indicating probable digested blood as well as coffee- ground emesis yesterday with attempted placement of the NG tube. The Dobbhoff feeding tube attempt today yielded less blood but was still unsuccessful in placing a conduit through which we could give her lactulose and her other medications/feeding. She is completely uncooperative with the attempts to place this Dobbhoff. The patient will be needing an upper endoscopy tomorrow and will plan on placing a feeding tube at that time while she is asleep. I am concerned about esophageal varices and we will start the patient on some octreotide in the interim while we await upper endoscopy tomorrow morning. She has a potassium level of 2.4 and this needs to be replaced prior to the endoscopy. 02/19/17--surprisingly the patient did not have any significant amount of heme in her stomach. The findings of the upper endoscopy were as follows: Nasopharyngeal altered anatomy that made it difficult to get the Dobbhoff feeding tube through this region. Although we tried a times this was not successful ultimately and we had to abandon placement of the feeding tube. Patient did have LA class I varices noted 2 columns. Patient had hypertensive gastropathy as well as nodular gastropathy both of which were biopsied the duodenum appeared normal. There was retained food in the stomach consistent with gastroparesis as well. 02/20/17--the patient had LA class I varices 2 columns yesterday on EGD, these did not appear to be actively bleeding, no attempt was made to band these varices, we are continue the pantoprazole at this time and I am going to switch her from octreotide to propranolol as tolerated using 10 mg 3 times daily for the latter dose. There was retained food left over the stomach consistent with gastroparesis but I think we are going to hold off on treatment with Reglan. Current Visit: Yes (2) Acute hepatic encephalopathy Status: Acute Assessment and plan: Ammonia level is 108 yesterday and is now in the 90s, likely this is been elevated because of digested blood although ongoing cirrhosis is also possible. We will arrange for upper endoscopy to occur tomorrow and placement of a Dobbhoff versus Keofeed feeding tube to follow and see whether this will help her improve from the encephalopathy. She certainly has been uncooperative as far as taking Xifaxan. 02/19/17--Ammonia level went from 97 yesterday down to 89 today. She is going to be offered the lactulose again as well as Xifaxan orally to see whether or not this will help out with the underlying encephalopathy. Again it is not possible to give her the lactulose Via Dobbhoff feeding tube as this cannot be advanced through the nasal turbinates. 02/20/17--unfortunately the patient's ammonia level is higher again today. She is taking her Xifaxan is likely passing blood from upper GI tract. We will continue to watch and try and avoid use of nasal feeding tubes due to her altered anatomy of the sinuses preventing passage of this tube Current Visit: Yes (3) Alcoholic cirrhosis Status: Chronic Assessment and plan: The patient states that she has maintained her sobriety. 02/19/17--patient is maintaining her sobriety, by report. 02/20/17--It would be nice to verify the fact the patient has been off of alcohol with her family, who I've have not seen yet. Will check liver function tests again tomorrow. They do not seem to have peaked yet. Current Visit: No Qualifiers: Ascites presence: without ascites Qualified Code(s): K70.30 - Alcoholic cirrhosis of liver without ascites (4) Hypokalemia Status: Acute Assessment and plan: Patient will need multiple runs of potassium in order to undergo upper endoscopy tomorrow. 02/19/17--appears to be doing well with potassium up to 3.2. 02/20/17--Potassium levels now up to 3.5 with oral replacement in addition to IV replacement. Continue per protocol. Current Visit: Yes Gastroenterology - PN: Subj Interval history: Patient is doing well today. She is ready to be transferred upstairs. We can stop her octreotide drip. Her ammonia level did go up slightly but I suspect she is probably passing blood that she is digesting. Exam (Progress Note) - Constitutional Vitals: Period Temp Pulse Resp BP Sys/Grajeda Pulse Ox Last 24 Hr 97.6 F-98.9 F 61-81 11-21 79-113/38-67 93-100 General appearance: mild distress - Head Head exam: Present: normocephalic - Eye Eye exam: Present: EOMI - Respiratory Respiratory exam: Present: clear to auscultation bilaterally. Absent: rhonchi, stridor, wheezes - Cardiovascular Cardiovascular exam: Present: regular rate and rhythm - GI/Abdominal GI/Abdominal exam: Present: normal bowel sounds, ascites, tenderness ( Epigastric tenderness to deep palpation), soft. Absent: distended, guarding, rebound - Extremities Exam Extremities exam: Absent: edema - Neurological Exam Neurological exam: Present: alert, oriented X3. Absent: altered (Patient is more interactive today) - Psychiatric Psychiatric exam: Present: normal affect, normal mood - Skin Skin exam: Present: warm Results - Labs CBC & BMP: 02/20/17 05:56 02/20/17 10:03
[2017-02-20] MEDS: PROPRANOLOL 10 MG TABLET PO SCH ×2 (15:04→21:33)
[2017-02-20] MEDS: OCTREOTIDE 1,250 MCG in SODIUM CHLORIDE 0.9% 247.5 ML IV SCH (19:04)
[2017-02-20] MEDS: LACTULOSE 160 GM/240 ML BOTTLE RECTAL SCH (19:16)
[2017-02-20] MEDS: POTASSIUM CHLORIDE RIDER 10 MEQ in PREMIX 1 EACH IV PRN ×2 (21:42→23:30)
[2017-02-21] MEDS: POTASSIUM CHLORIDE RIDER 10 MEQ in PREMIX 1 EACH IV PRN ×4 (01:30→14:30)
[2017-02-21 05:16] LABS: Basophils % 0.6 % (0.0-0.8); Eosinophils # 0.2 10*3/uL (0.0-0.87); Eosinophils % 4.7 % (0.00-10.9); Hemoglobin 10.7 GM/DL (12.0-16.0); Lymphocytes # 1.7 10*3/uL (1.4-4.0); Lymphocytes % 47.4 % (21.3-54.2); Mean Corpuscular HGB Conc 34.5 GM/DL (32-36); Mean Corpuscular Hemoglobin 34 PG (27-34); Mean Corpuscular Volume 99.7 FL (87-102); Mean Platelet Volume 9.9 FL (9.6-12.0); Monocytes # 0.4 10*3/uL (0.11-0.8); Monocytes % 11.1 % (1.7-12.7); Neutrophils # 1.3 10*3/uL (1.4-7.4); Neutrophils % 36.2 % (38.7-73.9); Red Blood Count 3.11 MC/CUMM (3.8-5.5); Red Cell Distribution Width 16.1 % (9.3-17.3); White Blood Count 3.6 T/CUMM (4-12)
[2017-02-21 05:23] LABS: Platelet Count 56 T/CUMM (130-400)
[2017-02-21 05:38] LABS: Band Neutrophils 1 % (0-10); Burr Cells Slight; Eosinophils 5 % (0-10); Giant Platelets Few; Hypochromasia 1+; Lymphocytes 42 % (20-55); Platelet Estimate Decreased; Segmented Neutrophils 49 % (50-85); Total Cells Counted 100
[2017-02-21 05:39] LABS: Ovalocytes Slight
[2017-02-21 05:50] LABS: Albumin 1.5 G/DL (3.4-5.0); Bilirubin,Total 6.4 MG/DL (0.2-1.0); Calcium 7.9 MG/DL (8.5-10.1); Total Protein 6.1 G/DL (6.4-8.3)
[2017-02-21 05:51] LABS: Osmolality,Calculated 283.1 MOS/KG (273-304); Potassium 3.4 MMOL/L (3.5-5.1)
[2017-02-21] MEDS: LACTULOSE 20 GM/30 ML UDCUP PO SCH ×3 (10:06→20:44)
[2017-02-21] MEDS: MIDODRINE 5 MG TABLET PO SCH ×3 (10:06→20:44)
[2017-02-21] MEDS: POTASSIUM CHLORIDE 10 MEQ TABLET PO SCH (10:06)
[2017-02-21] MEDS: PROPRANOLOL 10 MG TABLET PO SCH ×3 (10:06→20:44)
[2017-02-21] MEDS: FOLIC ACID 1 MG TABLET PO SCH (10:06)
[2017-02-21] MEDS: PANTOPRAZOLE 40 MG TABLET PO SCH (10:07)
[2017-02-21] MEDS: RIFAXIMIN 550 MG TABLET PO SCH ×2 (10:07→20:44)
--- NOTE | 2017-02-21 11:16 | Physician Query Form ---
CLICK EDIT DOCUMENT TO SELECT QUERY ANSWER --> OK --> SIGN Mehreen Roberts RN, CCDS Certified Clinical [employer]er W) [phone] (f) [phone] [email or web address]: Make your selection(s) from the choices in EACH section by typing an "x" and enter comments in the comment section. Please use your independent medical judgment in providing your response. This request does not imply that any particular answer is desired or expected. CLINICAL INDICATORS: (Providers should not edit this section) The medical record indicates that the patient was admitted with Hepatic Encephalopathy, Anemia, HH dropped to 8.2/22.4 and the patient was given 2 units of blood. Based on the above, could you clarify which of the following conditions you are evaluating, treating, and/or monitoring? ( ) Blood loss anemia ( ) acute ( ) chronic ( ) acute on chronic (xx) Acute blood loss anemia on baseline chronic anemia ( ) Acute blood loss anemia as a complication of a procedure ( ) Iron deficiency anemia not associated with blood loss ( ) Dilutional anemia due to IV fluids ( ) Anemia due to chemotherapy ( ) Anemia due to neoplastic disease ( ) Anemia due to chronic kidney disease ( ) Pernicious anemia ( ) Aplastic anemia ( ) Hemolytic anemia ( ) immune ( ) non-immune - please specify cause: ( ) Anemia due to other condition, please specify: ( ) Clinically unable to determine COMMENTS: PLEASE ALSO DOCUMENT RESPONSE IN PROGRESS NOTES AND/OR DISCHARGE SUMMARY Use of terms such as suspected, likely, or probable (associated with a specific diagnosis that is being evaluated, monitored, or treated as if it exists) are acceptable and can be restated in the discharge summary if not ruled out. MTDD
--- NOTE | 2017-02-21 12:19 | Hospitalist Progress Note ---
Assessment and Plan (1) Acute hepatic encephalopathy Status: Acute Assessment and plan: 1)encephalopathy, triggered by acute GI bleed on chronic liver failure from alcoholic cirrhosis- on xifaxin and lactulose which she is now consistently taking orally (her nasal anatomy made it impossible for Dr Triplett to place a feeding tube at EGD). Continue meds and recheck ammonia in am. She is more alert and cooperative today. GIB was from gastropathy and varices- grade 1 in 2 columns. Octreotide stopped and now she is on propanolol. 2)hypokalemia- replaced 3)Hyponatremia- resolved 4)alcoholism- no alcohol for 6 weeks. 5)hypotension- she runs low due to her cirrhosis. she is on midodrine. 6)dispo- to the floor family to stay with her. may need swing bed placement at discharge. Current Visit: Yes (2) Liver cirrhosis, alcoholic Status: Chronic Current Visit: Yes (3) Hypokalemia Status: Acute Current Visit: Yes (4) Hypotension Status: Acute Current Visit: Yes (5) Acute upper gastrointestinal hemorrhage Status: Acute Current Visit: Yes Hospitalist: Subjective Interval history: Mrs Jhaveri is feeling good this morning. SHe denies pain or shortness of breath. She is tolerating a regular diet. She has been taking her lactulose and xifaxin and her ammonia level is down to 69. She is oriented. She did not move out of the unit yesterday because there were no beds on the floor. Exam - Constitutional Vitals: Period Temp Pulse Resp BP Sys/Grajeda Pulse Ox Last 24 Hr 97.2 F-98.5 F 62-73 12-25 92-116/48-63 92-100 General appearance: no acute distress, over weight - Eye Eye exam: Present: EOMI, scleral icterus - Respiratory Respiratory exam: Present: clear to auscultation bilaterally - Cardiovascular Cardiovascular exam: Present: regular rate and rhythm - GI/Abdominal GI/Abdominal exam: Present: normal bowel sounds, soft. Absent: tenderness - Extremities Exam Extremities exam: Absent: edema Results - Labs CBC & BMP: 02/21/17 04:39 02/21/17 10:32 Lab Results: I have reviewed the past 24 hour labs Quality Measures - VTE Contraindication to Pharmacological VTE Prophylaxis: Thrombocytopenia
--- NOTE | 2017-02-21 18:14 | Gastrointestinal Progress Note ---
Assessment and Plan (1) Acute upper gastrointestinal hemorrhage Status: Acute Assessment and plan: This patient's hematocrit has decreased down to 22%, she has an acute increase in her ammonia level indicating probable digested blood as well as coffee- ground emesis yesterday with attempted placement of the NG tube. The Dobbhoff feeding tube attempt today yielded less blood but was still unsuccessful in placing a conduit through which we could give her lactulose and her other medications/feeding. She is completely uncooperative with the attempts to place this Dobbhoff. The patient will be needing an upper endoscopy tomorrow and will plan on placing a feeding tube at that time while she is asleep. I am concerned about esophageal varices and we will start the patient on some octreotide in the interim while we await upper endoscopy tomorrow morning. She has a potassium level of 2.4 and this needs to be replaced prior to the endoscopy. 02/19/17--surprisingly the patient did not have any significant amount of heme in her stomach. The findings of the upper endoscopy were as follows: Nasopharyngeal altered anatomy that made it difficult to get the Dobbhoff feeding tube through this region. Although we tried a times this was not successful ultimately and we had to abandon placement of the feeding tube. Patient did have LA class I varices noted 2 columns. Patient had hypertensive gastropathy as well as nodular gastropathy both of which were biopsied the duodenum appeared normal. There was retained food in the stomach consistent with gastroparesis as well. 02/20/17--the patient had LA class I varices 2 columns yesterday on EGD, these did not appear to be actively bleeding, no attempt was made to band these varices, we are continue the pantoprazole at this time and I am going to switch her from octreotide to propranolol as tolerated using 10 mg 3 times daily for the latter dose. There was retained food left over the stomach consistent with gastroparesis but I think we are going to hold off on treatment with Reglan. 02/21/17--As noted above--unfortunately patient's pulse rate is dropped to the mid 50s and so will have to cut back on the propranolol somewhat or maybe discontinue this tomorrow if she is remaining depressed. I suspect now she may not be able tolerate the medication but a watch and see how she does on twice daily dosing. Observe hematocrit for the present time. No need for transfusion. Current Visit: Yes (2) Acute hepatic encephalopathy Status: Acute Assessment and plan: Ammonia level is 108 yesterday and is now in the 90s, likely this is been elevated because of digested blood although ongoing cirrhosis is also possible. We will arrange for upper endoscopy to occur tomorrow and placement of a Dobbhoff versus Keofeed feeding tube to follow and see whether this will help her improve from the encephalopathy. She certainly has been uncooperative as far as taking Xifaxan. 02/19/17--Ammonia level went from 97 yesterday down to 89 today. She is going to be offered the lactulose again as well as Xifaxan orally to see whether or not this will help out with the underlying encephalopathy. Again it is not possible to give her the lactulose Via Dobbhoff feeding tube as this cannot be advanced through the nasal turbinates. 02/20/17--Unfortunately the patient's ammonia level is higher again today. She is taking her Xifaxan is likely passing blood from upper GI tract. We will continue to watch and try and avoid use of nasal feeding tubes due to her altered anatomy of the sinuses preventing passage of this tube. 02/21/17--the ammonia level is now down as we Get Further Away from the Previous Upper GI Bleeding Episode. She will likely be able to leave tomorrow to go either to a swing bed versus home again. Unfortunately it is unclear whether or not she has returned to drinking 1 discharge home. Abstinence needs to be emphasized with this patient. Current Visit: Yes (3) Alcoholic cirrhosis Status: Chronic Assessment and plan: The patient states that she has maintained her sobriety. 02/19/17--patient is maintaining her sobriety, by report. 02/20/17--It would be nice to verify the fact the patient has been off of alcohol with her family, who I've have not seen yet. Will check liver function tests again tomorrow. They do not seem to have peaked yet. 02/21/17--Likely okay for discharge tomorrow, as mentioned above. The liver function tests appear to have peaked at this point and is starting to come down. Again abstinence needs to be emphasized for this patient. Hopefully she will be able tolerate the decrease frequency of propranolol. Current Visit: No Qualifiers: Ascites presence: without ascites Qualified Code(s): K70.30 - Alcoholic cirrhosis of liver without ascites (4) Hypokalemia Status: Acute Assessment and plan: Patient will need multiple runs of potassium in order to undergo upper endoscopy tomorrow. 02/19/17--appears to be doing well with potassium up to 3.2. 02/20/17--Potassium levels now up to 3.5 with oral replacement in addition to IV replacement. Continue per protocol. 02/21/17--Now up to 3.7. Current Visit: Yes Gastroenterology - PN: Subj Interval history: The patient is at her usual state, she is awake and is responsive, she is ready for discharge in my opinion. Exam (Progress Note) - Constitutional Vitals: Period Temp Pulse Resp BP Sys/Grajeda Pulse Ox Last 24 Hr 97.8 F-98.5 F 56-72 15-25 96-116/48-57 92-100 General appearance: mild distress - Head Head exam: Present: normocephalic - Eye Eye exam: Present: EOMI - Respiratory Respiratory exam: Present: clear to auscultation bilaterally. Absent: rhonchi, stridor, wheezes - Cardiovascular Cardiovascular exam: Present: regular rate and rhythm - GI/Abdominal GI/Abdominal exam: Present: normal bowel sounds, ascites, distended, soft. Absent: tenderness, rebound - Extremities Exam Extremities exam: Present: edema (Trace in the ankles) - Neurological Exam Neurological exam: Present: alert, oriented X3 - Psychiatric Psychiatric exam: Present: normal affect, normal mood - Skin Skin exam: Present: warm Results - Labs CBC & BMP: 02/21/17 04:39 02/21/17 10:32
[2017-02-22 05:34] LABS: Basophils % 0.2 % (0.0-0.8); Eosinophils # 0.2 10*3/uL (0.0-0.87); Eosinophils % 5.4 % (0.00-10.9); Hemoglobin 10.1 GM/DL (12.0-16.0); Lymphocytes % 46.1 % (21.3-54.2); Mean Corpuscular HGB Conc 34.8 GM/DL (32-36); Mean Corpuscular Hemoglobin 35 PG (27-34); Mean Corpuscular Volume 100.7 FL (87-102); Monocytes # 0.5 10*3/uL (0.11-0.8); Monocytes % 11.1 % (1.7-12.7); Neutrophils # 1.6 10*3/uL (1.4-7.4); Neutrophils % 37.2 % (38.7-73.9); Platelet Count 44 T/CUMM (130-400); Red Blood Count 2.88 MC/CUMM (3.8-5.5); Red Cell Distribution Width 15.9 % (9.3-17.3); White Blood Count 4.2 T/CUMM (4-12)
[2017-02-22 06:04] LABS: Albumin 1.4 G/DL (3.4-5.0); Bilirubin,Total 5.6 MG/DL (0.2-1.0); Calcium 7.8 MG/DL (8.5-10.1); Osmolality,Calculated 282.1 MOS/KG (273-304); Potassium 3.1 MMOL/L (3.5-5.1); Total Protein 5.9 G/DL (6.4-8.3)
[2017-02-22 06:10] LABS: Band Neutrophils 1 % (0-10); Eosinophils 4 % (0-10); Hypochromasia 1+; Lymphocytes 39 % (20-55); Ovalocytes Slight; Platelet Estimate Decreased; Segmented Neutrophils 49 % (50-85); Total Cells Counted 100
[2017-02-22 06:11] LABS: Giant Platelets Few
[2017-02-22] MEDS: FOLIC ACID 1 MG TABLET PO SCH (09:20)
[2017-02-22] MEDS: PANTOPRAZOLE 40 MG TABLET PO SCH (09:20)
[2017-02-22] MEDS: RIFAXIMIN 550 MG TABLET PO SCH ×2 (09:20→21:57)
[2017-02-22] MEDS: POTASSIUM CHLORIDE 10 MEQ TABLET PO SCH (09:20)
[2017-02-22] MEDS: MIDODRINE 5 MG TABLET PO SCH ×3 (09:20→21:57)
[2017-02-22] MEDS: POTASSIUM CHLORIDE 20 MEQ TABLET PO PRN (09:20)
[2017-02-22] MEDS: LACTULOSE 20 GM/30 ML UDCUP PO SCH ×3 (09:20→21:56)
[2017-02-22] MEDS: PROPRANOLOL 10 MG TABLET PO SCH ×2 (09:20→21:57)
[2017-02-22] MEDS ORDERED: POTASSIUM CHLORIDE 20 MEQ TABLET PO ONE (10:54)
--- NOTE | 2017-02-22 10:58 | Discharge Summary ---
Diagnosis - Discharge Diagnosis (1) Acute hepatic encephalopathy Status: Acute (2) Liver cirrhosis, alcoholic Status: Chronic (3) Hypokalemia Status: Acute (4) Hypotension Status: Acute (5) Acute upper gastrointestinal hemorrhage Status: Acute Specialty Discharge - Follow Up or Referrals Follow up with: Manuel Triplett MD [Physician] - [facility],MD Dinesh [Primary Care Provider] - Discharge Plan - Discharge Data Disposition: Swing Bed, [facility] Based, [facility]ngel Condition at Discharge: Stable Discharge Diet: heart healthy Activity: resume usual activities as tolerated, as per physical therapy - Discharge Medications New Midodrine [Proamatine] 5 mg PO TID #90 tablet Propranolol Tab [Inderal Tab] 10 mg PO BID #60 tablet Continue hydrOXYzine HCL TAB [Atarax Tab] 25 mg PO Q6H PRN #30 tablet PRN Reason: Itching Rifaximin [Xifaxan] 550 mg PO BID #60 tablet Albuterol Inhaler [Proventil Inhaler] 2 puff INH Q4H PRN PRN Reason: Shortness Of Breath/Wheezing Folic Acid Tab 1 mg PO QAM Pantoprazole Tab [Protonix Tab] 40 mg PO QAM Furosemide Tab [Lasix Tab] 40 mg PO BID #60 tablet HYDROcodone/ACETAMIN 5-325 [[place] 5-325] 1 tablet PO Q4H PRN #20 tablet PRN Reason: Pain Moderate (4-7) Lactulose Liquid [Chronulac] 20 gm PO TID #1 Changed Potassium Chloride 20 meq PO DAILY #60 capsule Discontinued Ibuprofen Tab [Motrin Tab] 600 mg PO Q6H PRN #0 tablet PRN Reason: Fever, Headache, Mild Pain Levofloxacin Tab [Levaquin Tab] 500 mg PO DAILY #10 tablet metOLazone [Zaroxolyn] 5 mg PO BID #60 tablet - Follow Up or Referral - Forms/Instructions Exam - Constitutional Vitals: Period Temp Pulse Resp BP Sys/Grajeda Pulse Ox Last 24 Hr 97.8 F-986 F 56-67 15-20 90-111/52-67 91-97 Discharge Results Labs on day of discharge: Labs from last 24 hours 02/22/17 02/22/17 02/21/17 04:42 04:42 10:32 WBC 4.2 RBC 2.88 L Hgb 10.1 L Hct 29.0 L MCV 100.7 MCH 35 H MCHC 34.8 RDW 15.9 Plt Count 44 L D MPV 10.0 Neut % (Auto) 37.2 L Lymph % (Auto) 46.1 [place] % (Auto) 11.1 Eos % (Auto) 5.4 Baso % (Auto) 0.2 Neut # (Auto) 1.6 Lymph # (Auto) 2.0 [place] # (Auto) 0.5 Eos # (Auto) 0.2 Baso # (Auto) 0.0 Total Counted 100 Immature Gran % 0.0 Nucleated RBC % 0.0 Immature Gran # 0.00 Segmented Neutrophils 49 L Band Neutrophils 1 Lymphocytes 39 Monocytes 7 Eosinophils 4 Nucleated RBCs # 0.00 Platelet Estimate Decreased Giant Platelets Few Immature Plt Fraction 0.0 Hypochromasia 1+ Ovalocytes Slight Morphology Comment Sodium 142 Potassium 3.1 L 3.7 Chloride 110 H Carbon Dioxide 25 Anion Gap 10.1 BUN 14 Creatinine 1.10 H GFR Calculation 66 BUN/Creatinine Ratio 12.00 Glucose 83 Calculated Osmolality 282.1 Calcium 7.8 L Total Bilirubin 5.60 H AST 168 H ALT 53 Alkaline Phosphatase 227 H Ammonia 76 H Total Protein 5.9 L Albumin 1.4 L Globulin 4.5 H Albumin/Globulin Ratio 0.3 L DS: Provider Date of admission: 02/17/17 07:04 Primary care physician: Dinesh Clayton MD Attending physician on admission: Dane Moore MD Consults: 02/18/17 08:59 Consult to Physician [CONS] Routine Comment: cirrhosis, encephalopathy Consulting Provider: Manuel Triplett Person Notified: aware 02/18/17 11:24 Consult to Anesthesiology [CONS] Routine Consulting Provider: Reason for Anesthesiology: Pre-op Clearance 02/20/17 19:01 Consult to Case Mgmt/Social Srvs [CONS] Routine Reason for Case Mgmt/Social Srvs: Discharge Planning 02/21/17 14:50 Consult to Occupational Therapy [CONS] Routine Reason for Occupational Therapy: Evaluate and Treat Consult Comment: [facility] Consult to Physical Therapy [CONS] Routine Reason for Physical Therapy: Evaluate and Treat Consult Comment: [facility] Discharging clinician: Shannan Escudero MD
--- NOTE | 2017-02-22 13:59 | Gastrointestinal Progress Note ---
Assessment and Plan (1) Acute upper gastrointestinal hemorrhage Status: Acute Assessment and plan: This patient's hematocrit has decreased down to 22%, she has an acute increase in her ammonia level indicating probable digested blood as well as coffee- ground emesis yesterday with attempted placement of the NG tube. The Dobbhoff feeding tube attempt today yielded less blood but was still unsuccessful in placing a conduit through which we could give her lactulose and her other medications/feeding. She is completely uncooperative with the attempts to place this Dobbhoff. The patient will be needing an upper endoscopy tomorrow and will plan on placing a feeding tube at that time while she is asleep. I am concerned about esophageal varices and we will start the patient on some octreotide in the interim while we await upper endoscopy tomorrow morning. She has a potassium level of 2.4 and this needs to be replaced prior to the endoscopy. 02/19/17--surprisingly the patient did not have any significant amount of heme in her stomach. The findings of the upper endoscopy were as follows: Nasopharyngeal altered anatomy that made it difficult to get the Dobbhoff feeding tube through this region. Although we tried a times this was not successful ultimately and we had to abandon placement of the feeding tube. Patient did have LA class I varices noted 2 columns. Patient had hypertensive gastropathy as well as nodular gastropathy both of which were biopsied the duodenum appeared normal. There was retained food in the stomach consistent with gastroparesis as well. 02/20/17--the patient had LA class I varices 2 columns yesterday on EGD, these did not appear to be actively bleeding, no attempt was made to band these varices, we are continue the pantoprazole at this time and I am going to switch her from octreotide to propranolol as tolerated using 10 mg 3 times daily for the latter dose. There was retained food left over the stomach consistent with gastroparesis but I think we are going to hold off on treatment with Reglan. 02/21/17--As noted above--unfortunately patient's pulse rate is dropped to the mid 50s and so will have to cut back on the propranolol somewhat or maybe discontinue this tomorrow if she is remaining depressed. I suspect now she may not be able tolerate the medication but a watch and see how she does on twice daily dosing. Observe hematocrit for the present time. No need for transfusion. 02/22/17--patient's pulse rate with a lower frequency of propranolol now in the low 60s which is target. She is ready to be discharged in my opinion, her hematocrit is stable currently now at 29%. She can follow-up with me in the office in about 6 weeks. She does not require antibiotic therapy for Helicobacter pylori, she does require ongoing use of propranolol as well as pantoprazole. Ascites is not been a huge problem for the patient and so have not started her on diuretics yet. This may worsen down the road. Current Visit: Yes (2) Acute hepatic encephalopathy Status: Acute Assessment and plan: Ammonia level is 108 yesterday and is now in the 90s, likely this is been elevated because of digested blood although ongoing cirrhosis is also possible. We will arrange for upper endoscopy to occur tomorrow and placement of a Dobbhoff versus Keofeed feeding tube to follow and see whether this will help her improve from the encephalopathy. She certainly has been uncooperative as far as taking Xifaxan. 02/19/17--Ammonia level went from 97 yesterday down to 89 today. She is going to be offered the lactulose again as well as Xifaxan orally to see whether or not this will help out with the underlying encephalopathy. Again it is not possible to give her the lactulose Via Dobbhoff feeding tube as this cannot be advanced through the nasal turbinates. 02/20/17--Unfortunately the patient's ammonia level is higher again today. She is taking her Xifaxan is likely passing blood from upper GI tract. We will continue to watch and try and avoid use of nasal feeding tubes due to her altered anatomy of the sinuses preventing passage of this tube. 02/21/17--the ammonia level is now down as we Get Further Away from the Previous Upper GI Bleeding Episode. She will likely be able to leave tomorrow to go either to a swing bed versus home again. Unfortunately it is unclear whether or not she has returned to drinking 1 discharge home. Abstinence needs to be emphasized with this patient. 02/22/17--ammonia level slightly increased from 69 yesterday up to 76 today. Patient appears to be awake and lucid again she feels ready for discharge and we might have to adjust the dose of lactulose as an outpatient. Currently she is getting Xifaxan 550 mg p.o. twice daily in addition to lactulose 20 g 3 times daily Current Visit: Yes (3) Alcoholic cirrhosis Status: Chronic Assessment and plan: The patient states that she has maintained her sobriety. 02/19/17--patient is maintaining her sobriety, by report. 02/20/17--It would be nice to verify the fact the patient has been off of alcohol with her family, who I've have not seen yet. Will check liver function tests again tomorrow. They do not seem to have peaked yet. 02/21/17--Likely okay for discharge tomorrow, as mentioned above. The liver function tests appear to have peaked at this point and is starting to come down. Again abstinence needs to be emphasized for this patient. Hopefully she will be able tolerate the decrease frequency of propranolol. 02/22/17--this patient is currently on propranolol twice daily, she appears to have adequate synthetic function. Bilirubin is continuing to follow at this point. She absolutely must remain abstinent from alcohol in order to improve her liver function. Current Visit: No Qualifiers: Ascites presence: without ascites Qualified Code(s): K70.30 - Alcoholic cirrhosis of liver without ascites (4) Hypokalemia Status: Acute Assessment and plan: Patient will need multiple runs of potassium in order to undergo upper endoscopy tomorrow. 02/19/17--appears to be doing well with potassium up to 3.2. 02/20/17--Potassium levels now up to 3.5 with oral replacement in addition to IV replacement. Continue per protocol. 02/21/17--Now up to 3.7. 02/22/17--Potassium back down to 3.1. They wish to start some spironolactone as an outpatient. Current Visit: Yes Gastroenterology - PN: Subj Interval history: No new complaints, the patient is ready be discharged home. She is excited. Exam (Progress Note) - Constitutional Vitals: Period Temp Pulse Resp BP Sys/Grajeda Pulse Ox Last 24 Hr 97.4 F-986 F 56-67 16-20 86-111/45-67 91-97 General appearance: mild distress - Eye Eye exam: Present: EOMI, scleral icterus - Respiratory Respiratory exam: Present: clear to auscultation bilaterally. Absent: rhonchi, stridor, wheezes - Cardiovascular Cardiovascular exam: Present: regular rate and rhythm - GI/Abdominal GI/Abdominal exam: Present: normal bowel sounds, distended, soft. Absent: guarding, tenderness, rebound - Neurological Exam Neurological exam: Present: alert, oriented X3 - Psychiatric Psychiatric exam: Present: normal affect, normal mood - Skin Skin exam: Present: warm Results - Labs CBC & BMP: 02/22/17 04:42 02/22/17 04:42 Specialty Discharge - Follow Up or Referrals Follow up with: Dinesh Clayton MD [Primary Care Provider] - Manuel Triplett MD [Physician] -
--- NOTE | 2017-02-22 14:10 | Hospitalist Progress Note ---
Assessment and Plan (1) Acute hepatic encephalopathy Status: Acute Assessment and plan: 1)encephalopathy, triggered by acute GI bleed on chronic liver failure from alcoholic cirrhosis- on xifaxin and lactulose which she is now consistently taking orally (her nasal anatomy made it impossible for Dr Triplett to place a feeding tube at EGD). GIB was from gastropathy and varices- grade 1 in 2 columns. Octreotide stopped and now she is on propanolol. Propanolol started for varices- tolerating current dose. 2)hypokalemia- replace again. 3)Hyponatremia- resolved 4)alcoholism- no alcohol for 6 weeks. 5)hypotension- she runs low due to her cirrhosis. she is on midodrine. 6)dispo- to swing bed tomorrow. Current Visit: Yes (2) Liver cirrhosis, alcoholic Status: Chronic Current Visit: Yes (3) Hypokalemia Status: Acute Current Visit: Yes (4) Hypotension Status: Acute Current Visit: Yes (5) Acute upper gastrointestinal hemorrhage Status: Acute Current Visit: Yes Hospitalist: Subjective Interval history: Mrs Jhaveri is ding well today. She was to be discharged to swing bed but the bed will not be available until tomorrow. She is breathing comfortably. No pain. Eating well. Oriented. Exam - Constitutional Vitals: Period Temp Pulse Resp BP Sys/Grajeda Pulse Ox Last 24 Hr 97.4 F-986 F 56-67 16-20 86-111/45-67 91-97 General appearance: no acute distress, morbidly obese - Eye Eye exam: Present: EOMI. Absent: scleral icterus - Respiratory Respiratory exam: Present: clear to auscultation bilaterally - Cardiovascular Cardiovascular exam: Present: regular rate and rhythm - GI/Abdominal GI/Abdominal exam: Present: normal bowel sounds, soft. Absent: tenderness - Extremities Exam Extremities exam: Absent: edema Results - Labs CBC & BMP: 02/22/17 04:42 02/22/17 04:42 Lab Results: I have reviewed the past 24 hour labs Quality Measures - VTE Contraindication to Pharmacological VTE Prophylaxis: Thrombocytopenia Specialty Discharge - Follow Up or Referrals Follow up with: Dinesh Clayton MD [Primary Care Provider] - Manuel Triplett MD [Physician] - (6 weeks )
[2017-02-23] MEDS: PROPRANOLOL 10 MG TABLET PO SCH (09:21)
[2017-02-23] MEDS: RIFAXIMIN 550 MG TABLET PO SCH (09:21)
[2017-02-23] MEDS: LACTULOSE 20 GM/30 ML UDCUP PO SCH (09:21)
[2017-02-23] MEDS: POTASSIUM CHLORIDE 10 MEQ TABLET PO SCH (09:21)
[2017-02-23] MEDS: PANTOPRAZOLE 40 MG TABLET PO SCH (09:21)
[2017-02-23] MEDS: FOLIC ACID 1 MG TABLET PO SCH (09:21)
[2017-02-23] MEDS: MIDODRINE 5 MG TABLET PO SCH (09:23)
[2017-02-23] MEDS ORDERED: POTASSIUM CHLORIDE 20 MEQ TABLET PO ONE (10:51)
[2017-02-23 11:18] VITALS: BP 158/96
--- NOTE | 2017-02-23 12:45 | Discharge Summary ---
Hospital Course - Hospital Course Hospital Course: 51-year-old female was admitted to the hospital for confusion and altered mental status due to hepatic encephalopathy due to acute on chronic liver failure due to hepatic cirrhosis she had history of cirrhosis of liver due to alcohol. She was treated with lactulose and rifaximin and her mental status improved. She also had upper GI bleed with coffee-ground emesis. GI service was following. Initially she was on octreotide infusion and when improved he was switched to oral propranolol. She underwent an EGD she had some varices as well as portal hypertension and mild gastropathy. She made significant improvement. She was offered swing bed but then her family declined. They will take her home. Overall she is feeling much better tolerating diet, and has reached maximal hospital benefit and being discharged home. Total discharge time 25 minutes. - Time spent with patient Time with patient DS: Less than 30 minutes Specialty Discharge - Follow Up or Referrals Follow up with: Dinesh Clayton MD [Primary Care Provider] - Manuel Triplett MD [Physician] - (6 weeks ) Discharge Plan - Discharge Data Disposition: Swing Bed, [facility] Based, [facility]ngel Condition at Discharge: Stable Discharge Diet: advance to your usual diet Activity: resume usual activities as tolerated Hygiene: no restrictions Weight Bearing at Discharge: full weight bearing - Discharge Medications New Midodrine [Proamatine] 5 mg PO TID #90 tablet Propranolol Tab [Inderal Tab] 10 mg PO BID #60 tablet Continue hydrOXYzine HCL TAB [Atarax Tab] 25 mg PO Q6H PRN #30 tablet PRN Reason: Itching Rifaximin [Xifaxan] 550 mg PO BID #60 tablet Albuterol Inhaler [Proventil Inhaler] 2 puff INH Q4H PRN PRN Reason: Shortness Of Breath/Wheezing Folic Acid Tab 1 mg PO QAM Pantoprazole Tab [Protonix Tab] 40 mg PO QAM Furosemide Tab [Lasix Tab] 40 mg PO BID #60 tablet HYDROcodone/ACETAMIN 5-325 [[place] 5-325] 1 tablet PO Q4H PRN #20 tablet PRN Reason: Pain Moderate (4-7) Lactulose Liquid [Chronulac] 20 gm PO TID #1 Changed Potassium Chloride 20 meq PO DAILY #60 capsule Discontinued Ibuprofen Tab [Motrin Tab] 600 mg PO Q6H PRN #0 tablet PRN Reason: Fever, Headache, Mild Pain Levofloxacin Tab [Levaquin Tab] 500 mg PO DAILY #10 tablet metOLazone [Zaroxolyn] 5 mg PO BID #60 tablet - Follow Up or Referral Follow Up: Dinesh Clayton MD [Primary Care Provider] - Manuel Triplett MD [Physician] - (6 weeks ) - Forms/Instructions Exam - Constitutional Vitals: Period Temp Pulse Resp BP Sys/Grajeda Pulse Ox Last 24 Hr 97.4 F-98.3 F 58-90 18-20 95-168/55-96 92-96 Exam: General: No Acute Distress HEENT: Normocephalic, atraumatic, Extra ocular movements intact Neck: Supple, No JVD Chest: Clear to auscultation B/L CV: S1 + S2 audible without murmur, gallop or rub Abd: soft, NT, Non-distended, BS + Ext: No edema Skin: No purpura, bruising or rash Rheumatologic: No Joint deformities Neurologic: Awake and alert Discharge Results Procedures and tests throughout hospitalization: Pending Orders 02/24/17 04:00 CBC [Comp Blood Count Auto Diff] IN AM CMP [Comprehensive Metabolic Panel] IN AM Magnesium IN AM Phosphorous IN AM DS: Provider Date of admission: 02/17/17 07:04 Primary care physician: Dinesh Clayton MD Attending physician on admission: Dane Moore MD Consults: 02/18/17 11:24 Consult to Anesthesiology [CONS] Routine Consulting Provider: Reason for Anesthesiology: Pre-op Clearance 02/20/17 19:01 Consult to Case Mgmt/Social Srvs [CONS] Routine Reason for Case Mgmt/Social Srvs: Discharge Planning 02/21/17 14:50 Consult to Occupational Therapy [CONS] Routine Reason for Occupational Therapy: Evaluate and Treat Consult Comment: [facility] Consult to Physical Therapy [CONS] Routine Reason for Physical Therapy: Evaluate and Treat Consult Comment: [facility] Discharging clinician: Shanique Gomez MD
[2017-02-24] MEDS ORDERED: POTASSIUM CHLORIDE 20 MEQ TABLET PO SCH (09:00)
== END 2017-02-23 15:35 | disposition home or self-care (01) | DRG 279 ==
LOC: EDBD → EDUNIT# → N.ED 04:05 → N.CC 07:04 → SUATTDRO 07:04 → N.CC 07:35 → N.5E 02-21 16:58
PROVIDERS: ADMIT Internal Medicine; ATTEND Hospitalist

== ENCOUNTER 2017-09-16 12:01 | Inpatient (IN) ==
[2017-09-16] MEDS ORDERED: PANTOPRAZOLE 40 MG VIAL IV STA (12:30)
[2017-09-16] MEDS ORDERED: SODIUM CHLORIDE 0.9% 1,000 ML IV STA (12:30)
[2017-09-16] MEDS ORDERED: PANTOPRAZOLE 40 MG VIAL IV ONE (12:44)
[2017-09-16 12:48] LABS: Basophils % 0.6 % (0.0-0.8); Eosinophils # 0.3 10*3/uL (0.0-0.87); Eosinophils % 6.3 % (0.00-10.9); Hematocrit 26.1 VOL% (35.7-47.0); Hemoglobin 8.8 GM/DL (12.0-16.0); Immature Granulocytes % 0.4 %; Immature Granulocytes Absolute 0.02 #; Lymphocytes # 1.2 10*3/uL (1.4-4.0); Lymphocytes % 24.5 % (21.3-54.2); Mean Corpuscular HGB Conc 33.7 GM/DL (32-36); Mean Corpuscular Hemoglobin 35 PG (27-34); Mean Corpuscular Volume 102.8 FL (87-102); Mean Platelet Volume 10.3 FL (9.6-12.0); Monocytes # 0.9 10*3/uL (0.11-0.8); Neutrophils # 2.5 10*3/uL (1.4-7.4); Neutrophils % 50.2 % (38.7-73.9); Platelet Count 71 T/CUMM (130-400); Red Blood Count 2.54 MC/CUMM (3.8-5.5); White Blood Count 4.9 T/CUMM (4-12)
[2017-09-16 13:01] LABS: PT Patient Result 20.1 SECS
[2017-09-16 13:15] LABS: Albumin 1.4 G/DL (3.4-5.0); Bilirubin,Total 4.4 MG/DL (0.2-1.0); Calcium 7.6 MG/DL (8.5-10.1); Osmolality,Calculated 279.5 MOS/KG (273-304); Potassium 3.8 MMOL/L (3.5-5.1)
[2017-09-16] MEDS ORDERED: ONDANSETRON 4 MG/2 ML VIAL IV PRN (15:42)
[2017-09-16] MEDS ORDERED: DOCUSATE SODIUM 100 MG CAPSULE PO PRN (15:42)
[2017-09-16] MEDS ORDERED: LACTULOSE 20 GM/30 ML UDCUP PO PRN (15:42)
[2017-09-16] MEDS: LEVOFLOXACIN INJ 250 MG in PREMIX 1 EACH IV SCH (17:53)
[2017-09-16] MEDS: FUROSEMIDE 40 MG TABLET PO SCH (20:36)
[2017-09-16] MEDS ORDERED: MORPHINE 4 MG/1 ML VIAL IV SCH (23:30)
[2017-09-16] MEDS ORDERED: MORPHINE 4 MG/1 ML VIAL IV PRN (23:37)
[2017-09-17 06:09] LABS: Basophils % 0.5 % (0.0-0.8); Eosinophils # 0.3 10*3/uL (0.0-0.87); Eosinophils % 8.8 % (0.00-10.9); Hematocrit 23.4 VOL% (35.7-47.0); Hemoglobin 8.1 GM/DL (12.0-16.0); Immature Granulocytes % 0.3 %; Immature Granulocytes Absolute 0.01 #; Lymphocytes # 1.2 10*3/uL (1.4-4.0); Lymphocytes % 31.7 % (21.3-54.2); Mean Corpuscular HGB Conc 34.6 GM/DL (32-36); Mean Corpuscular Hemoglobin 35 PG (27-34); Mean Corpuscular Volume 101.7 FL (87-102); Monocytes # 0.7 10*3/uL (0.11-0.8); Monocytes % 17.6 % (1.7-12.7); Neutrophils # 1.5 10*3/uL (1.4-7.4); Neutrophils % 41.1 % (38.7-73.9); Platelet Count 62 T/CUMM (130-400); Red Cell Distribution Width 16.6 % (9.3-17.3); White Blood Count 3.8 T/CUMM (4-12)
[2017-09-17 06:28] LABS: Albumin 1.2 G/DL (3.4-5.0); Bilirubin,Total 4.2 MG/DL (0.2-1.0); Calcium 7.4 MG/DL (8.5-10.1); Osmolality,Calculated 284.1 MOS/KG (273-304); Potassium 3.8 MMOL/L (3.5-5.1); Total Protein 5.3 G/DL (6.4-8.3)
[2017-09-17 06:34] LABS: Anisocytosis 1+; Band Neutrophils 2 % (0-10); Burr Cells Few; Eosinophils 9 % (0-10); Lymphocytes 38 % (20-55); Macrocytosis 3+; Platelet Estimate Decreased; Segmented Neutrophils 48 % (50-85); Total Cells Counted 100
[2017-09-17 07:53] LABS: Apearance,Urine Cloudy (Clear); Bilirubin,Urine Negative (Negative); Blood, Urine Large mg/dL (Negative); Glucose,Urine (UA) Negative (Negative); Ketones,Urine Negative (Negative); Nitrite,Urine Negative (Negative); Protein,Urine Negative; Urine Color Amber (Yellow)
[2017-09-17 08:16] LABS: Bacteria,Urine 4+ /HPF (Few)
[2017-09-17] MEDS: FUROSEMIDE 40 MG TABLET PO SCH ×2 (08:41→20:43)
[2017-09-17] MEDS: PANTOPRAZOLE 40 MG TABLET PO SCH (08:41)
[2017-09-17] MEDS: POTASSIUM CHLORIDE 20 MEQ TABLET PO SCH (08:41)
[2017-09-17] MEDS: FOLIC ACID 1 MG TABLET PO SCH (08:41)
[2017-09-17] MEDS: THIAMINE 100 MG TABLET PO SCH (08:41)
[2017-09-17] MEDS: MULTIVITAMIN (CENTRUM) TABLET PO SCH (08:41)
[2017-09-17] MEDS ORDERED: FUROSEMIDE 20 MG/2 ML VIAL IV PRN (08:44)
[2017-09-17] MEDS ORDERED: SODIUM CHLORIDE 0.9% 1,000 ML IV PRN (08:44)
[2017-09-17] MEDS ORDERED: ALBUTEROL 2.5 MG/3 ML NEB RESP TX PRN (10:00)
[2017-09-17] MEDS: BISACODYL 5 MG TABLET PO SCH ×2 (10:42→16:01)
[2017-09-17] MEDS: MIDODRINE 5 MG TABLET PO SCH ×2 (14:44→20:42)
[2017-09-17] MEDS ORDERED: POLYETHYLENE GLYCOL POWDER 255 GM BOTTLE PO ONE (18:00)
[2017-09-17 18:25] LABS: Hematocrit 28.5 VOL% (35.7-47.0)
[2017-09-17 18:26] LABS: Hemoglobin 9.8 GM/DL (12.0-16.0)
[2017-09-17] MEDS: PROPRANOLOL 10 MG TABLET PO SCH (20:42)
[2017-09-17] MEDS: LEVOFLOXACIN INJ 250 MG in PREMIX 1 EACH IV SCH (20:45)
[2017-09-17] MEDS ORDERED: MAGNESIUM CITRATE 300 ML BOTTLE PO ONE (21:00)
[2017-09-18] MEDS: BISACODYL 5 MG TABLET PO SCH (01:17)
[2017-09-18 01:36] LABS: Hematocrit 26.3 VOL% (35.7-47.0); Hemoglobin 8.8 GM/DL (12.0-16.0)
[2017-09-18 02:05] LABS: Albumin 1.2 G/DL (3.4-5.0); Bilirubin,Total 4.8 MG/DL (0.2-1.0); Calcium 7.5 MG/DL (8.5-10.1); Osmolality,Calculated 285.1 MOS/KG (273-304); Potassium 3.4 MMOL/L (3.5-5.1); Total Protein 5.3 G/DL (6.4-8.3)
[2017-09-18 02:40] LABS: Basophils % 0.6 % (0.0-0.8); Eosinophils # 0.2 10*3/uL (0.0-0.87); Eosinophils % 6.7 % (0.00-10.9); Hematocrit 26.6 VOL% (35.7-47.0); Immature Granulocytes % 0.6 %; Immature Granulocytes Absolute 0.02 #; Lymphocytes # 1.1 10*3/uL (1.4-4.0); Lymphocytes % 31.8 % (21.3-54.2); Mean Corpuscular HGB Conc 33.8 GM/DL (32-36); Mean Corpuscular Hemoglobin 33 PG (27-34); Mean Corpuscular Volume 98.5 FL (87-102); Monocytes # 0.7 10*3/uL (0.11-0.8); Monocytes % 20.1 % (1.7-12.7); Neutrophils # 1.4 10*3/uL (1.4-7.4); Neutrophils % 40.2 % (38.7-73.9); Platelet Count 53 T/CUMM (130-400); Red Cell Distribution Width 18.4 % (9.3-17.3); White Blood Count 3.6 T/CUMM (4-12)
[2017-09-18 03:09] LABS: Band Neutrophils 5 % (0-10); Eosinophils 4 % (0-10); Lymphocytes 29 % (20-55); Myelocytes 4 %; Segmented Neutrophils 49 % (50-85); Total Cells Counted 100
[2017-09-18 03:10] LABS: Anisocytosis 1+; Tear Drop Cells Few
[2017-09-18 03:11] LABS: Platelet Estimate Decreased
[2017-09-18] MEDS: LEVOTHYROXINE 112 MCG TABLET PO SCH (06:41)
[2017-09-18 08:22] LABS: INR 1.9; PT Patient Result 19.5 SECS
[2017-09-18] MEDS ORDERED: PHENYLEPHRINE 1 MG/10 ML SYRINGE IV ONE (10:00)
[2017-09-18] MEDS ORDERED: LIDOCAINE 2% 5 ML VIAL ONE (10:00)
[2017-09-18] MEDS ORDERED: PROPOFOL 500 MG/50 ML BOTTLE IV ONE (10:00)
[2017-09-18] MEDS: PROPRANOLOL 10 MG TABLET PO SCH ×2 (10:39→21:35)
[2017-09-18] MEDS: FUROSEMIDE 40 MG TABLET PO SCH ×2 (10:39→21:35)
[2017-09-18] MEDS: POTASSIUM CHLORIDE 20 MEQ TABLET PO SCH (10:39)
[2017-09-18] MEDS: FOLIC ACID 1 MG TABLET PO SCH (10:39)
[2017-09-18] MEDS: PANTOPRAZOLE 40 MG TABLET PO SCH (10:40)
[2017-09-18] MEDS: MULTIVITAMIN (CENTRUM) TABLET PO SCH (10:40)
[2017-09-18] MEDS: THIAMINE 100 MG TABLET PO SCH (10:40)
[2017-09-18] MEDS: MIDODRINE 5 MG TABLET PO SCH ×3 (10:40→21:35)
[2017-09-18] MEDS: PHYTONADIONE 10 MG/1 ML AMP IV SCH (10:40)
[2017-09-18] MEDS: LEVOFLOXACIN INJ 250 MG in PREMIX 1 EACH IV SCH (21:36)
[2017-09-19 05:52] LABS: Basophils % 0.5 % (0.0-0.8); Eosinophils # 0.2 10*3/uL (0.0-0.87); Eosinophils % 5.6 % (0.00-10.9); Hematocrit 25.1 VOL% (35.7-47.0); Hemoglobin 8.5 GM/DL (12.0-16.0); Immature Granulocytes % 0.7 %; Immature Granulocytes Absolute 0.03 #; Lymphocytes # 1.6 10*3/uL (1.4-4.0); Lymphocytes % 38.8 % (21.3-54.2); Mean Corpuscular HGB Conc 33.9 GM/DL (32-36); Mean Corpuscular Hemoglobin 33 PG (27-34); Mean Platelet Volume 9.8 FL (9.6-12.0); Monocytes # 0.7 10*3/uL (0.11-0.8); Monocytes % 17.7 % (1.7-12.7); Neutrophils # 1.5 10*3/uL (1.4-7.4); Neutrophils % 36.7 % (38.7-73.9); Red Blood Count 2.56 MC/CUMM (3.8-5.5); Red Cell Distribution Width 18.4 % (9.3-17.3); White Blood Count 4.1 T/CUMM (4-12)
[2017-09-19 05:55] LABS: Platelet Count 65 T/CUMM (130-400)
[2017-09-19] MEDS: LEVOTHYROXINE 112 MCG TABLET PO SCH (05:55)
[2017-09-19 06:13] LABS: Band Neutrophils 5 % (0-10); Eosinophils 6 % (0-10); Lymphocytes 35 % (20-55); Macrocytosis 2+; Platelet Estimate Decreased; Segmented Neutrophils 49 % (50-85); Total Cells Counted 100
[2017-09-19] MEDS: PHYTONADIONE 10 MG/1 ML AMP IV SCH (09:13)
[2017-09-19] MEDS: POTASSIUM CHLORIDE 20 MEQ TABLET PO SCH (09:14)
[2017-09-19] MEDS: PROPRANOLOL 10 MG TABLET PO SCH (09:14)
[2017-09-19] MEDS: FOLIC ACID 1 MG TABLET PO SCH (09:14)
[2017-09-19] MEDS: MULTIVITAMIN (CENTRUM) TABLET PO SCH (09:14)
[2017-09-19] MEDS: FUROSEMIDE 40 MG TABLET PO SCH (09:14)
[2017-09-19] MEDS: PANTOPRAZOLE 40 MG TABLET PO SCH (09:14)
[2017-09-19] MEDS: THIAMINE 100 MG TABLET PO SCH (09:14)
[2017-09-19] MEDS: MIDODRINE 5 MG TABLET PO SCH (09:14)
[2017-09-19 12:02] VITALS: BP 103/60
== END 2017-09-19 13:58 | disposition home or self-care (01) | DRG 254 ==
LOC: N.ED 12:01 → SUATTDRO 13:55 → N.EDINP 13:55 → N.2E 14:14
PROVIDERS: ADMIT Internal Medicine